=== PATIENT | male | born 1930 | race Caucasian/White ===

== ENCOUNTER 2019-04-25 09:35 | Day surgery (SDC) | payer BC ==
[2019-04-24 13:22] VITALS: BMI 37.6
[2019-04-25 13:20] VITALS: BP 127/83; PULSE 62
[2019-04-25 14:33] VITALS: TEMP 98
[2019-04-25 15:01] LABS: BASO % 1.2 % (0-2.0); EOS % 2.8 % (0-4.5); HEMATOCRIT 32.2 % (35.4-49); HEMOGLOBIN 10.2 GM/dL (11.7-16.9); LYMPH % 21.1 % (8-40); MCH 25.4 pg (25.7-33.7); MCHC 31.7 g/dl (32.0-35.9); MEAN CELL VOLUME 80.2 fl (80-96); MONO % 8.1 % (3.8-10.2); NEUT % 66.8 % (42.8-82.8); PLATELET COUNT 224 K/MM3 (134-434); RBC 4.02 M/mm3 (4.00-5.60); RDW 24.8 % (11.9-15.9); WHITE BLOOD COUNT 5.8 K/mm3 (4.0-10.0)
[2019-04-25 15:12] LABS: INR 1.2 (0.83-1.09); PROTHROMBIN TIME (PATIENT) 14.2 SEC (9.7-13.0)
[2019-04-25 15:27] LABS: ALBUMIN 3.2 g/dl (3.4-5.0); BILIRUBIN,TOTAL 0.4 mg/dL (0.2-1); BLOOD UREA NITROGEN 21.6 mg/dL (7-18); CALCIUM 8.8 mg/dL (8.5-10.1); CREATININE 1.2 mg/dL (0.55-1.3); POTASSIUM 3.2 mmol/L (3.5-5.1); TOT PROT 6.3 g/dl (6.4-8.2)
[2019-04-25 15:37] LABS: ANISOCYTOSIS 2+
--- NOTE | 2019-04-28 15:05 | PATH ---
Surgical Pathology Report Patient Name: LUIS ENRIQUE MILLER [facility]. Rec. #: [id number] /Age/Gender: 1930 (Age: 88) / M Account: [id number] Location: U-ENDOSCOPY Taken: 04/25/2019 Received: 04/25/2019 Reported: 04/28/2019 Physicians: Sergio Bailon M.D. Specimen(s) Received A: DUODENAL BULB AND 2ND PORTION B: GASTRIC ANTRUM C: GASTRIC ULCER D: CECUM POLYP E: RIGHT COLON POLYP Clinical History Occult blood, anemia, colon cancer screening Postoperative diagnosis: Malignant appearing gastric ulcer, colon polyps, angiodysplasia of colon Final Diagnosis A. DUODENUM, SECOND PORTION AND BULB, BIOPSY: DUODENAL MUCOSA WITHOUT SIGNIFICANT PATHOLOGIC FINDINGS. B. GASTRIC ANTRUM, BIOPSY: GASTRIC ANTRAL MUCOSA WITH MILD CHRONIC GASTRITIS AND INTESTINAL METAPLASIA. NO DYSPLASIA IDENTIFIED. IMMUNOHISTOCHEMICAL STAIN FOR H. PYLORI IS NEGATIVE. C. GASTRIC ULCER, MALIGNANT APPEARING, BIOPSY: ADENOCARCINOMA, MODERATE TO POORLY DIFFERENTIATED, WITH ASSOCIATED NECROSIS. SEE COMMENT. D. CECUM POLYP, BIOPSY: INFLAMMATORY POLYP. E. COLON, RIGHT, POLYP, BIOPSY: TUBULAR ADENOMA. Comment: Part C, Immunohistochemical stains performed and interpreted at [facility] show the tumor is positive for CK20 (patchy), while negative for CK7. The above immunophenotype is seen in a subset of gastric adenocarcinoma. Immunohistochemical stain for H. pylori is negative. Case seen in intradepartmental review with consensus on diagnosis. Her2 studies pending, findings will be reported separately. Findings discussed with Dr. Bailon. Positive and negative controls (internal if applicable) show appropriate results. Electronically Signed Jennifer Dominguez M.D. Addendum Reported: 05/08/2019 Addendum Diagnosis HER2 FISH BY ANALYSIS on block C was performed and interpreted at [facility] ([id number]) shows the following: Marker Result Interpretation HER2 IHC 2+ Equivocal HER2/CEP17 1.9 Negative FINAL HER2 Interpretation NEGATIVE HER2 IHC Results: Complete Membrane Staining: See Below* Uniform Staining: Absent Homogeneous, dark circumferential pattern: Absent Sample Adequate for Analysis: Yes HER2 FISH Results: Number of tumor cells counted: 20+20 Number of observers: 2 Average HER2 copy number: 4.85 Average CEP17 copy number: 2.50 Ratio of average HER2/CEP17: 1.9 Sample Adequate for Analysis: Yes See [facility] for additional details. Addendum Comment Jennifer Dominguez M.D. Gross Description A. Received in formalin, labeled "biopsy bulb and second portion of duodenum" are 3 peña, irregular portions of soft tissue averaging 0.3 cm. in greatest dimension. The specimens are submitted in toto in one cassette. B. Received in formalin, labeled "biopsy gastric antrum" are 2 peña, irregular portions of soft tissue measuring 0.2 and 0.3 cm. in greatest dimension. The specimens are submitted in toto in one cassette. C. Received in formalin labeled "biopsy malignant appearing gastric ulcer," is a 0.6 x 0.5 x 0.2 cm aggregate of peña soft tissue fragments. The formalin is filtered and the specimen is entirely submitted in one cassette. D. Received in formalin, labeled "cecum polyp" is a peña, irregular portion of soft tissue measuring 0.4 cm. in greatest dimension. The specimen is submitted in toto in one cassette. E. Received in formalin, labeled "right colon polyp" is a peña, irregular portion of soft tissue measuring 0.5 cm. in greatest dimension. The specimen is submitted in toto in one cassette. DL04/25/2019 saudi04/25/2019
== END 2019-04-25 14:34 | disposition home or self-care (01) ==
LOC: JASU-ENDO 09:35
PROVIDERS: ATTEND Internal Medicine Gastroenterology
PROC: 0DBK8ZX Excision of Ascending Colon, Via Natural or Artificial Opening Endoscopic, Diagnostic (ICD-10-PCS; 2019-04-25)
PROC: 0DB68ZX Excision of Stomach, Via Natural or Artificial Opening Endoscopic, Diagnostic (ICD-10-PCS; 2019-04-25)
PROC: 0DBH8ZX Excision of Cecum, Via Natural or Artificial Opening Endoscopic, Diagnostic (ICD-10-PCS; principal; 2019-04-25 10:45)
DX: Z12.11 Encounter for screening for malignant neoplasm of colon (principal); D50.9 Iron deficiency anemia, unspecified; D12.2 Benign neoplasm of ascending colon; D12.0 Benign neoplasm of cecum; K55.20 Angiodysplasia of colon without hemorrhage; K57.30 Diverticulosis of large intestine without perforation or abscess without bleeding; K64.8 Other hemorrhoids; K25.9 Gastric ulcer, unspecified as acute or chronic, without hemorrhage or perforation; E11.9 Type 2 diabetes mellitus without complications; I10 Essential (primary) hypertension
CPT/HCPCS: 36415; 80053; 82378; 85025; 85610; 88305-TC; 88341-TC; 88342-TC

== ENCOUNTER 2019-10-13 11:44 | Inpatient (IN) | payer BC, OTHER ==
[2019-10-13 11:52] VITALS: BMI 33.3
--- NOTE | 2019-10-13 12:01 | PDOC ---
Rapid Medical Evaluation Medical Evaluation: Allergies Allergy/AdvReac Type Severity Reaction Status Date / Time aspirin Allergy Verified 08/28/19 14:42 Vital Signs Temp Pulse Resp BP Pulse Ox 74 16 157/72 98 10/13/19 11:49 10/13/19 11:49 10/13/19 11:49 10/13/19 11:49 10/13/19 11:55 88 yo M accompanied by , h/o HL, BPH, CAD, CVA c/o dysuria x 2 weeks started on doxycycline 5 days ago, now with urinary retention since yesterday. decreased appetite, denies f/c, sob, cp. VSS sitting comfortably in wheelchair A/P: urinary retention labs, ua, ucx
--- NOTE | 2019-10-13 12:45 | PDOC ---
History of Present Illness - General Chief Complaint: Weakness Stated Complaint: WEAKNESS/ABD PAIN Time Seen by Provider: 10/13/19 12:07 - History of Present Illness Initial Comments: Pt is a 88yo M with PMH of HTN, HLD, DM, CKD, BPH, GERD, Afib on eliquis, gastric CA on chemo, who presents from assisted living for high blood pressure. Pt appears to be confused and is a poor historian. Pt states that he has not urinated in 1-3 days, nor had bowel movements in days. Repeatedly states that he is very thirsty. Called [facility]. States that patient was sent here for high blood pressure (136/130). In terms of chronic problems, they state that he has had decreased oral intake and increased weakness since starting chemo for gastric cancer. Upon asking about baseline mental status, they mention that he has appeared more confused over the last few days. State that most medications have been on hold for the last 19 days due to stomach pain. Continues to take metoprolol 100, protonix 40, eliquis 2.5, and K 20. K was increased from 10 3 days ago. Discontinued medications include: mirtazapine, furosemide, finasteri de, flomax, losartan, atorvastatin, amlodipine, iron. 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 10/13/19 19:30 Past History - Medical History Allergies/Adverse Reactions: Allergies Allergy/AdvReac Type Severity Reaction Status Date / Time aspirin Allergy Verified 08/28/19 14:42 Home Medications: Ambulatory Orders Atorvastatin Ca [Lipitor] 40 mg PO HS 04/24/19 Finasteride [Proscar -] 5 mg PO HS 04/24/19 Furosemide 40 mg PO DAILY 04/24/19 Glimepiride [Amaryl -] 2 mg PO DAILY 04/24/19 Metoprolol Succinate [Toprol Xl] 100 mg PO DAILY 04/24/19 Mirtazapine 15 mg PO HS 04/24/19 Potassium Chloride 10 meq PO DAILY 04/24/19 Pantoprazole Sodium [Protonix -] 40 mg PO HS #30 tablet.ec 04/25/19 Amlodipine Besylate [Norvasc -] 5 mg PO DAILY 09/12/19 Apixaban [Eliquis] 2.5 mg PO BID 09/12/19 Bimatoprost [Lumigan] 1 drop OU HS 09/12/19 Brimonidine Tartrate/Timolol [Combigan 0.2%-0.5% Eye Drops] 5 ml OP TID 09/12/19 Losartan Potassium 100 mg PO DAILY 09/12/19 Tamsulosin HCl [Flomax] 0.4 mg PO HS 09/12/19 Docusate Sodium [Colace] 200 mg PO HS PRN 09/13/19 Ferrous Sulfate 325 mg PO TID 09/13/19 Lidocaine 5% Patch [Lidoderm -] 1 patch TP DAILY PRN 09/13/19 Polyvinyl Alcohol [Artificial Tears] 1 drop OU QID 09/13/19 Sennosides [Senna] 17.2 mg PO HS PRN 09/13/19 Ondansetron HCl [Zofran] 4 mg PO Q8H #9 tablet 09/15/19 Cancer: Yes (Gastric CA) Cardiac Disorders: Yes (ASHD MD, ATRIAL FIBRILLATION, CHF?) COPD: No Dementia: Yes Diabetes: Yes (NIDD) HTN: Yes Hypercholesterolemia: Yes - Surgical History Appendectomy: Yes - Immunization History Immunization Up to Date: Yes - Psycho-Social/Smoking History Smoking History: Never smoked Have you smoked in the past 12 months: No - Substance Abuse Hx (Audit-C & DAST Scrn) How often the patient has a drink containing alcohol: Never Score: In Men: 4 or > Positive; In Women: 3 or > Positive: 0 Screen Result (Pos requires Nsg. Audit-10AR): Negative Review of Systems - Review of Systems Able to Perform ROS?: No (confused) *Physical Exam - Vital Signs Last Vital Signs Temp Pulse Resp BP Pulse Ox 97.3 F L 74 16 157/72 98 10/13/19 12:01 10/13/19 11:49 10/13/19 11:49 10/13/19 11:49 10/13/19 11:49 - Physical Exam General: awake, is aware that he is in hospital, in no acute distress Head: normocephalic, atraumatic Eyes: PERRL, EOMI, anicteric sclera ENT: dry mucous membranes Lung: equal breath sounds b/l, CTA b/l, no crackles, wheezes Heart: RRR, normal S1, S2, no murmurs, rubs, gallops Abdomen: soft, non tender, normoactive bowel sounds, no guarding, rebound, masses Extremities: no edema, no erythema or tenderness Skin: warm, dry, no rashes or lesions noted ED Treatment Course - LABORATORY CBC & Chemistry Diagram: 10/13/19 13:15 10/13/19 12:19 Medical Decision Making - Medical Decision Making Pt is an 88yo M with PMH HTN, HLD, DM, CKD, BPH, GERD, Afib on eliquis, gastric CA on chemo who presents with high blood pressure. Vital Signs Period Temp Pulse Resp BP Sys/Davis Pulse Ox Last 24 Hr 97.3 F 74 16 157/72 98 DDx: hypoglycemia, UTI, pneumonia Plan: labs, EKG, CXR, head CT, CT A/P EKG: HR 79; Afib, Left axis deviation, QRS 92ms, QTc 463ms Laboratory Tests 10/13/19 10/13/19 10/13/19 12:19 13:15 13:15 WBC 7.8 RBC 4.24 Hgb 14.0 Hct 41.4 MCV 97.7 H MCH 33.0 MCHC 33.7 RDW 20.3 H Plt Count 213 D MPV 8.5 Absolute Neuts (auto) 6.0 Neutrophils % 77.3 Lymphocytes % 13.2 D Monocytes % 7.6 Eosinophils % 0.7 Basophils % 1.2 Nucleated RBC % 0 PT with INR 16.40 H INR 1.39 H PTT (Actin FS) 30.7 Sodium 144 Potassium 3.9 Chloride 111 H Carbon Dioxide 22 Anion Gap 10 BUN 15.6 Creatinine 1.0 Est GFR (CKD-EPI)AfAm 78.64 Est GFR (CKD-EPI)NonAf 67.85 Random Glucose 139 H Calcium 8.7 Magnesium 1.9 Total Bilirubin 1.3 H AST 37 ALT 24 Alkaline Phosphatase 86 Total Protein 6.2 L Albumin 2.5 L 10/13/19 17:[address]: no acute intracranial pathology 10/13/19 17:52 CT A/P: No definite CT findings of acute pathology are seen. There has been no definite interval change in comparison to a prior CT exam of 09/11/2019. 0.9 cm urinary bladder calculus. Moderate prostate enlargement. As on prior studies there is increased soft tissue density along the urinary bladder base probably due to median lobe prostate hypertrophy and less likely representing an intrinsic urinary bladder lesion. Urinary consultation is suggested if not previously performed. Probable diffuse hepatic steatosis. Stable subcentimeter right hepatic lobe hypodense focus possibly representing a cyst. 10/13/19 18:06 Trop 0.06 Pt signed out to Dr. Good who accepted care for patient Disposition Admit Discharge - Discharge Information Problems reviewed: Yes Clinical Impression/Diagnosis: Altered mental status Condition: Stable - Admission Yes - Follow up/Referral - Patient Discharge Instructions - Post Discharge Activity
[2019-10-13 13:30] LABS: BASO % 1.2 % (0-2.0); EOS % 0.7 % (0-4.5); HEMATOCRIT 41.4 % (35.4-49); LYMPH % 13.2 % (8-40); MCHC 33.7 g/dl (32.0-35.9); MEAN CELL VOLUME 97.7 fl (80-96); MEAN PLT VOLUME 8.5 fl (7.5-11.1); MONO % 7.6 % (3.8-10.2); NEUT % 77.3 % (42.8-82.8); PLATELET COUNT 213 K/MM3 (134-434); RBC 4.24 M/mm3 (4.00-5.60); RDW 20.3 % (11.9-15.9); WHITE BLOOD COUNT 7.8 K/mm3 (4.0-10.0)
[2019-10-13 13:37] LABS: INR 1.39 (0.83-1.09); PROTHROMBIN TIME (PATIENT) 16.4 SEC (9.7-13.0)
[2019-10-13 13:39] LABS: ACTIVATED PTT 30.7 SECONDS (25.2-36.5)
[2019-10-13 13:56] LABS: ALBUMIN 2.5 g/dl (3.4-5.0); BILIRUBIN,TOTAL 1.3 mg/dL (0.2-1); BLOOD UREA NITROGEN 15.6 mg/dL (7-18); CALCIUM 8.7 mg/dL (8.5-10.1); MAGNESIUM 1.9 mg/dL (1.8-2.4); POTASSIUM 3.9 mmol/L (3.5-5.1); TOT PROT 6.2 g/dl (6.4-8.2)
[2019-10-13] MEDS ORDERED: SODIUM CHLORIDE 0.9% 500 ML INFUS.BAG IV ONE (14:05)
[2019-10-13 19:39] LABS: PH,URINE 7.5 (5.0-8.0); URINE APPEARANCE CLEAR; URINE BILIRUBIN NEGATIVE (NEGATIVE); URINE COLOR YELLOW; URINE GLUCOSE (UA) NEGATIVE (NEGATIVE); URINE KETONE NEGATIVE (NEGATIVE); URINE LEUK ESTERASE NEGATIVE (NEGATIVE); URINE NITRITE NEGATIVE (NEGATIVE); URINE PROTEIN NEGATIVE (NEGATIVE)
--- NOTE | 2019-10-13 19:50 | PN ---
Teaching Attending Note Name of Resident: Rodriguez Bruno ATTENDING PHYSICIAN STATEMENT I saw and evaluated the patient. I reviewed the resident's note and discussed the case with the resident. I agree with the resident's findings and plan as documented. SUBJECTIVE: Patient is an 88 year old male with a PMH of Gastric cancer (on chemo), ASHD, [place], Afib (on Eliquis), DM, BPH, HTN, HLD, CAD and CVA who presents to the ER from [facility] (assisted living) for high blood pressure. Has baseline ?confusion. Per patient, his last urination was 1-3 days ago. Per assisted living, the patient has chronic weakness, decreased oral intake, has recently become more confused, and he has not been given his medications for 19 days due to stomach pain. Continues to take Metoprolol 100, Protonix 40, Eliquis 2.5, and KCL 20. KCL was increased from 10 three days ago. Discontinued medications include: Mirtazapine, Furosemide, Finasteride, Flomax, Losartan, Atorvastatin, Amlodipine and Iron. No reported chest pain, shortness of breath, abdominal pain, headache, palpitations, dizziness, fever, chills, nausea, vomiting, diarrhea, dysuria, manuel quency, melena, hematochezia or hematuria. No reported history of alcohol, tobacco or illicit drug use. No reported sick contacts or recent travels. Family history is unremarkable. OBJECTIVE: Alert Vital Signs Period Temp Pulse Resp BP Sys/Davis Pulse Ox Last 24 Hr 97.3 F 74 16 157/72 98 HEENT: No Jaundice, eye redness or discharge, PERRLA, EOMI. Normocephalic, atraumatic. External ears are normal and hearing is grossly intact. No nasal discharge. Neck: Supple, nontender. No palpable adenopathy or thyromegaly. No JVD Chest: Good effort. Clear to auscultation and percussion. Heart: Regular. No S3, rub or murmur Abdomen: Not distended, soft, LUQ tenderness and no HSM. No rebound or guarding. Normal bowel sounds. Ext: Peripheral pulses intact. No leg edema. Skin: Warm and dry. No petechiae, rash or ecchymosis. Neuro: Alert. Oriented x3. CN 2-12 grossly intact. Sensation grossly intact in all four extremities and DTR are symmetric. Psych: Appropriate mood and affect. Good insight. Home Medications Medication Instructions Recorded Atorvastatin Ca [Lipitor] 40 mg PO HS 04/24/19 Finasteride [Proscar -] 5 mg PO HS 04/24/19 Furosemide 40 mg PO DAILY 04/24/19 Glimepiride [Amaryl -] 2 mg PO DAILY 04/24/19 Metoprolol Succinate [Toprol Xl] 100 mg PO DAILY 04/24/19 Mirtazapine 15 mg PO HS 04/24/19 Potassium Chloride 10 meq PO DAILY 04/24/19 Pantoprazole Sodium [Protonix -] 40 mg PO HS #30 tablet.ec 04/25/19 Amlodipine Besylate [Norvasc -] 5 mg PO DAILY 09/12/19 Apixaban [Eliquis] 2.5 mg PO BID 09/12/19 Bimatoprost [Lumigan] 1 drop OU HS 09/12/19 Brimonidine Tartrate/Timolol 5 ml OP TID 09/12/19 [Combigan 0.2%-0.5% Eye Drops] Losartan Potassium 100 mg PO DAILY 09/12/19 Tamsulosin HCl [Flomax] 0.4 mg PO HS 09/12/19 Docusate Sodium [Colace] 200 mg PO HS PRN 09/13/19 Ferrous Sulfate 325 mg PO TID 09/13/19 Lidocaine 5% Patch [Lidoderm -] 1 patch TP DAILY PRN 09/13/19 Polyvinyl Alcohol [Artificial 1 drop OU QID 09/13/19 Tears] Sennosides [Senna] 17.2 mg PO HS PRN 09/13/19 Ondansetron HCl [Zofran] 4 mg PO Q8H #9 tablet 09/15/19 Abnormal Lab Results 10/13/19 10/13/19 10/13/19 12:19 13:15 13:15 MCV 97.7 H RDW 20.3 H PT with INR 16.40 H INR 1.39 H Chloride 111 H Random Glucose 139 H Total Bilirubin 1.3 H Troponin I 0.07 H Total Protein 6.2 L Albumin 2.5 L Current Medications Generic Name Dose Route Start Last Admin Trade Name Freq PRN Reason Stop Dose Admin Docusate Sodium 100 mg 10/14/19 10:00 Colace - PO DAILY STEVE Lactated Ringer's 1,000 ml in 1,000 mls @ 83 mls/hr 10/13/19 23:45 Lactated Ringers Solution IV ASDIR STEVE Morphine Sulfate 2 mg 10/13/19 23:55 Morphine Sulfate IVPUSH Q4H PRN PAIN LEVEL 6-10 Oxycodone HCl 10 mg 10/13/19 23:38 Roxicodone - PO Q6H PRN PAIN LEVEL 6-10 Trimethobenzamide HCl 300 mg 10/13/19 23:40 Tigan - PO QID PRN NAUSEA ASSESSMENT AND PLAN: 1. Altered mental status/Failure to thrive - No obvious infection. Cancer burden and/or debility associated with chemotherapy may explain symptoms. Patient tested negative for COVID-19 on 09/11/2019. CXR shows right side central line but no acute abnormality. No acute abnormality on head CT. CT abdomen/pelvis with IV contrast didnot show any acute abnormality. Consult Oncologist to ascertain objective of cancer chemotherapy. Consult Palliative care. Mild elevation in troponin may signal demand ischemia. EKG shows Afib at 79/minute, LAD and QTc 463, T wave inversion in V4-V6 with no significant ST wave changes - similar to prior EKG. Will trend troponin to rule out ACS. He has no Echocardiogram on record. Will monitor on telemetry, hydrate gently, provide bowel regimen and intense nutritional support including supplements like Ensure. Viral testing for COVID-19 ordered and patient placed on airborne, droplet and contact isolation. Will continue comprehensive care for all of patients comorbid conditions including Eliquis for Afib. 2. Hypoalbuminemia - Possibly due to combined effects of malnutrition and inflammation associated with comorbid conditions. Will ensure adequate dietary protein intake and also consult information clerk brokerage. 3. DM For now, we will hold the home diabetes drugs and implement sliding scale insulin regimen. Provide comprehensive diabetes care with patient teaching and counseling about the importance of adherence to prescribed diabetes regimen, euglycemia, eye care and foot care. 4. Obesity Counseled on the risks associated with obesity. Will provide patient all the necessary assistance, counseling and positive reinforcement to facilitate weight loss. Consult information clerk brokerage. 5. Uncontrolled hypertension Will restart suitable outpatient antihypertensive drugs when clinically appropriate. Subsequently, will revise regimen to ensure [id number] excellent BP control. Patient counseled on the injurious effects of uncontrolled hypertension. Nonpharmacologic measures to control hypertension like weight loss, salt restriction and exercise stressed. Importance of adherence to treatment regimen and attainment of normotension emphasized. 6. DVT prophylaxis - On Eliquis for Afib. 7. Advance directives - Full code
--- NOTE | 2019-10-13 21:22 | HP ---
CHIEF COMPLAINT: Sent from [place] for hypotension and AMS PCP: HISTORY OF PRESENT ILLNESS: 88 y.o. Citizen Of [place] speaking M PMHx HTN, HLD, DM, CKD, GERD, A-Fib on eloquis, Gastric cancer (oxaliplatin, leucovorin, 5-FU). Was sent from [place] home due to hypertension (136/130) and increased confusion over the past few days. The staff stated he has been having difficulty urinating, decreased appetite and has had his medications (mirtazapine, furosemide, finasteride, flomax, losartan, atorvastatin, amlodipine, iron) on hold for 19 days due to stomach pain. In the ED patient stated he has been having dizziness, nausea and is very thirsty. Denied headache, chills, sob, chest pain, vomiting, diarrhea, dysuria, hematuria. Patient knew his name, date, and location although he though he was in the OR and would frequently repeat himself/not answer questions. He was previously on ensure per dietary. He sees his oncologist Dr. Gutiérrez at [facility]. He has no recent travel, lives at [facility] and has had no recent sick contacts. [employer] # [id number] ER course was notable for: (1) Urine Culture (2) 500mL NS bolus (3) EKG Recent Travel: None PAST MEDICAL HISTORY: HTN, HLD, DM, CKD, GERD, A-Fib, Gastric cancer PAST SURGICAL HISTORY: None Social History: Smoking: None Alcohol: None Drugs: None Allergies aspirin Allergy (Verified 08/28/19 14:42) HOME MEDICATIONS: Home Medications Medication Instructions Recorded Atorvastatin Ca [Lipitor] 40 mg PO HS 04/24/19 Finasteride [Proscar -] 5 mg PO HS 04/24/19 Furosemide 40 mg PO DAILY 04/24/19 Glimepiride [Amaryl -] 2 mg PO DAILY 04/24/19 Metoprolol Succinate [Toprol Xl] 100 mg PO DAILY 04/24/19 Mirtazapine 15 mg PO HS 04/24/19 Potassium Chloride 10 meq PO DAILY 04/24/19 Pantoprazole Sodium [Protonix -] 40 mg PO HS #30 tablet.ec 04/25/19 Amlodipine Besylate [Norvasc -] 5 mg PO DAILY 09/12/19 Apixaban [Eliquis] 2.5 mg PO BID 09/12/19 Bimatoprost [Lumigan] 1 drop OU HS 09/12/19 Brimonidine Tartrate/Timolol 5 ml OP TID 09/12/19 [Combigan 0.2%-0.5% Eye Drops] Losartan Potassium 100 mg PO DAILY 09/12/19 Tamsulosin HCl [Flomax] 0.4 mg PO HS 09/12/19 Docusate Sodium [Colace] 200 mg PO HS PRN 09/13/19 Ferrous Sulfate 325 mg PO TID 09/13/19 Lidocaine 5% Patch [Lidoderm -] 1 patch TP DAILY PRN 09/13/19 Polyvinyl Alcohol [Artificial 1 drop OU QID 09/13/19 Tears] Sennosides [Senna] 17.2 mg PO HS PRN 09/13/19 Ondansetron HCl [Zofran] 4 mg PO Q8H #9 tablet 09/15/19 REVIEW OF SYSTEMS CONSTITUTIONAL: loss of appetite Absent: fever, chills, diaphoresis, generalized weakness, malaise, weight change HEENT: Absent: rhinorrhea, nasal congestion, throat pain, throat swelling, difficulty swallowing, mouth swelling, ear pain, eye pain, visual changes CARDIOVASCULAR: Absent: chest pain, syncope, palpitations, irregular heart rate, lightheadedness, peripheral edema RESPIRATORY: Absent: cough, shortness of breath, dyspnea with exertion, orthopnea, wheezing, stridor, hemoptysis GASTROINTESTINAL: abdominal pain, nausea Absent: abdominal distension, vomiting, diarrhea, constipation, melena, hematochezia GENITOURINARY: Absent: dysuria, frequency, urgency, hesitancy, hematuria, flank pain, genital pain MUSCULOSKELETAL: Absent: myalgia, arthralgia, joint swelling, back pain, neck pain SKIN: Absent: rash, itching, pallor HEMATOLOGIC/IMMUNOLOGIC: Absent: easy bleeding, easy bruising, lymphadenopathy, frequent infections ENDOCRINE: Absent: unexplained weight gain, unexplained weight loss, heat intolerance, cold intolerance NEUROLOGIC: Absent: headache, focal weakness or paresthesias, dizziness, unsteady gait, seizure, mental status changes, bladder or bowel incontinence PSYCHIATRIC: Absent: anxiety, depression, suicidal or homicidal ideation, hallucinations. PHYSICAL EXAMINATION Vital Signs - 24 hr 10/13/19 10/13/19 10/13/19 11:49 12:01 20:29 Temperature 97.3 F L 97.8 F Pulse Rate 74 Pulse Rate [ 67 Left Brachial] Respiratory 16 Rate Blood Pressure 157/72 Blood Pressure 90/70 [Left Arm] O2 Sat by Pulse 98 98 Oximetry (%) GENERAL: Awake, alert, and fully oriented, in no acute distress. HEAD: Normal with no signs of trauma. EYES: Pupils equal, round and reactive to light, extraocular movements intact, sclera anicteric, conjunctiva clear. EARS, NOSE, THROAT: Oropharynx clear without exudates. Dry mucous membranes. NECK: No JVD, or masses. LUNGS: Breath sounds equal, clear to auscultation bilaterally. No wheezes, and no crackles. No accessory muscle use. HEART: Iregular rate and rhythm, normal S1 and S2 without murmur, rub or gallop. ABDOMEN: Soft, tender LUQ, not distended, normoactive bowel sounds, no guarding, no rebound, no masses. MUSCULOSKELETAL: Normal range of motion at all joints. . No CVA tenderness. UPPER EXTREMITIES: 2+ pulses, warm, well-perfused. . No peripheral edema. LOWER EXTREMITIES: 2+ pulses, warm, well-perfused. No calf tenderness. No peripheral edema. NEUROLOGICAL: Cranial nerves II-XII intact. Normal speech. PSYCHIATRIC: Cooperative. Good eye contact. Appropriate mood and affect. SKIN: Warm, dry, normal turgor, no rashes or lesions noted. Laboratory Results - last 24 hr 10/13/19 10/13/19 10/13/19 12:19 13:15 13:15 WBC 7.8 RBC 4.24 Hgb 14.0 Hct 41.4 MCV 97.7 H MCH 33.0 MCHC 33.7 RDW 20.3 H Plt Count 213 D MPV 8.5 Absolute Neuts (auto) 6.0 Neutrophils % 77.3 Lymphocytes % 13.2 D Monocytes % 7.6 Eosinophils % 0.7 Basophils % 1.2 Nucleated RBC % 0 PT with INR 16.40 H INR 1.39 H PTT (Actin FS) 30.7 Sodium 144 Potassium 3.9 Chloride 111 H Carbon Dioxide 22 Anion Gap 10 BUN 15.6 Creatinine 1.0 Est GFR (CKD-EPI)AfAm 78.64 Est GFR (CKD-EPI)NonAf 67.85 Random Glucose 139 H Calcium 8.7 Magnesium 1.9 Total Bilirubin 1.3 H AST 37 ALT 24 Alkaline Phosphatase 86 Troponin I 0.07 H Total Protein 6.2 L Albumin 2.5 L Urine Color Urine Appearance Urine pH Ur Specific [place] Urine Protein Urine Glucose (UA) Urine Ketones Urine Blood Urine Nitrite Urine Bilirubin Urine Urobilinogen Ur Leukocyte Esterase 10/13/19 10/13/19 13:37 18:47 WBC RBC Hgb Hct MCV MCH MCHC RDW Plt Count MPV Absolute Neuts (auto) Neutrophils % Lymphocytes % Monocytes % Eosinophils % Basophils % Nucleated RBC % PT with INR INR PTT (Actin FS) Sodium Potassium Chloride Carbon Dioxide Anion Gap BUN Creatinine Est GFR (CKD-EPI)AfAm Est GFR (CKD-EPI)NonAf Random Glucose Calcium Magnesium Total Bilirubin AST ALT Alkaline Phosphatase Troponin I Cancelled Total Protein Albumin Urine Color Yellow Urine Appearance Clear Urine pH 7.5 Ur Specific [place] 1.027 Urine Protein Negative Urine Glucose (UA) Negative Urine Ketones Negative Urine Blood Negative Urine Nitrite Negative Urine Bilirubin Negative Urine Urobilinogen 1.0 Ur Leukocyte Esterase Negative ASSESSMENT/PLAN: 88 y.o. Citizen Of [place] speaking M PMHx HTN, HLD, DM, CKD, GERD, A-Fib on eloquis, Gastric cancer. Sent from [facility] due to hypertension (136/130), increased confusion, decreased appetite. # Failure to thrive & abdominal pain - Likely due to decreased PO intake - Secondary to gastric cancer - Dietary consult - Restart Ensure supplementation - F/u with Oncologist Dr. Gutiérrez at [facility] for nausea - Morphine 2mg Q4 - Oxycodone 10mg - Oxaliplatin & 5-FU adverse effects include: GI toxicity, GI bleed, stomatitis, mucositis, prolonged PT/INR - 5-FU & leucovorin adverse effect: enteric colitis # Hyperbilirubin - Direct bilirubin - Can f/u with RUQ US if elevated # Tropenemia - Troponin 0.07 - Trending trops - Echo ordered # Increased Qtc - Likely secondary to oxyplatin - Repeat EKG # Increased PT/INR - Likely secondary to Oxyplatin, 5-FU, Eloquis # Covid r/o - Covid PCR Ordered - PCR ordered due to geographic location of pandemic - Placed in isolation precautions # FEN - NS @ 75mL/hr - Ensure supplement - Diabetic/Sodium controlled diet # DVT Prophylaxis - Eloquis 2.5mg PO BID - SCD's B/L # Dispo - Visit type - Medication Review Med list reviewed for High Risk Meds patients 65 and older: Yes - Emergency Visit Emergency Visit: Yes ED Registration Date: 10/13/19 Care time: The patient presented to the Emergency Department on the above date and was hospitalized for further evaluation of their emergent condition. - New Patient This patient is new to me today: No - Critical Care Critical Care patient: No ATTENDING PHYSICIAN STATEMENT I saw and evaluated the patient. I reviewed the resident's note and discussed the case with the resident. I agree with the resident's findings and plan as documented. SUBJECTIVE: OBJECTIVE: ASSESSMENT AND PLAN:
[2019-10-13] MEDS ORDERED: oxyCODONE HCL 5 MG TABLET PO PRN (23:38)
[2019-10-13] MEDS ORDERED: TRIMETHOBENZAMIDE HCL 300 MG CAPSULE PO PRN (23:40)
[2019-10-13] MEDS ORDERED: morphine CARPU-JECT 4 MG/1 ML DISP.SYRIN IVPUSH SCH (23:45)
[2019-10-13] MEDS ORDERED: MORPHINE SULFATE 2 MG/ML VIAL IVPUSH PRN (23:55)
[2019-10-14] MEDS: LACTATED RINGERS SOLUTION 1,000 ML/1,000 ML INFUS.BAG IV SCH (02:35)
[2019-10-14] MEDS ORDERED: DOCUSATE SODIUM 100 MG CAPSULE (FP) PO PRN (05:12)
[2019-10-14] MEDS ORDERED: PATIENT'S OWN MEDICATION (NON-FORMULARY) (Brimonidine Tartrate/Timolol [Combigan 0.2%-0.5% OP SCH (06:00)
[2019-10-14] MEDS: FERROUS SO4 325 MG TABLET (FP) PO SCH ×4 (07:30→22:37)
[2019-10-14] MEDS ORDERED: DOCUSATE SODIUM 100 MG CAPSULE (FP) PO ONE (09:34)
[2019-10-14] MEDS ORDERED: APIXABAN 2.5 MG TABLET ONE (09:34)
[2019-10-14] MEDS ORDERED: MORPHINE SULFATE 2 MG/ML VIAL ONE (09:34)
[2019-10-14] MEDS ORDERED: POTASSIUM CHLORIDE TABS 10 MEQ TABLET.ER (FP) ONE (09:34)
[2019-10-14] MEDS ORDERED: FERROUS SO4 325 MG TABLET (FP) ONE (09:35)
[2019-10-14] MEDS: APIXABAN 2.5 MG TABLET PO SCH ×2 (09:52→22:37)
[2019-10-14] MEDS: DOCUSATE SODIUM 100 MG CAPSULE (FP) PO SCH (09:52)
[2019-10-14] MEDS: POTASSIUM CHLORIDE TABS 10 MEQ TABLET.ER (FP) PO SCH (09:52)
[2019-10-14] MEDS: ARTIFICIAL TEARS (POLYVINYL ALCOHOL) OPTH DROPS OU SCH ×4 (10:00→22:35)
--- NOTE | 2019-10-14 10:54 | ECHO ---
Name: VASILIADIS, CONSTANTINOS Exam:Adult Echocardiogram Study Date: 10/14/2019 08:16 AM Age: 88 yrs Reason For Study: LV Function Height: 65 in Weight: 200 lb BSA: 2.0 m2 MMode/2D Measurements & Calculations IVSd: 1.9 cm Ao root diam: 3.7 cm LVIDd: 3.9 cm LA dimension: 4.2 cm LVIDs: 2.9 cm ACS: 0.97 cm LVPWd: 1.4 cm EDV(Teich): 66.3 ml LVOT diam: 2.5 cm ESV(Teich): 33.5 ml LVLd ap4: 7.5 cm SV(MOD-sp4): 18.5 ml EDV(MOD-sp4): 37.3 ml LVLs ap4: 6.3 cm ESV(MOD-sp4): 18.8 ml Doppler Measurements & Calculations MV E max carito: 89.9 cm/sec MV dec slope: 597.2 cm/sec2 Ao V2 max: 151.2 cm/sec LV V1 max P.2 mmHg Ao max P.3 mmHg LV V1 mean P.2 mmHg Ao V2 mean: 98.3 cm/sec LV V1 max: 74.4 cm/sec Ao mean P.6 mmHg LV V1 mean: 49.6 cm/sec Ao V2 VTI: 30.9 cm LV V1 VTI: 15.2 cm RONDA(I,D): 2.4 cm2 RONDA(V,D): 2.4 cm2 MR max carito: 333.3 cm/sec SV(LVOT): 72.8 ml MR max P.6 mmHg PA V2 max: 71.7 cm/sec PA max P.1 mmHg Tech Comments Technically Difficult Syudy. Procedure A two-dimensional transthoracic echocardiogram with color flow and Doppler was performed. The patient was in atrial fibrillation with controlled ventricular rate during the exam. Left Ventricle There is moderate concentric left ventricular hypertrophy. The left ventricular ejection fraction is normal. Ejection Fraction = 55. The transmitral spectral Doppler flow pattern is suggestive of impaired LV re laxation. Right Ventricle The right ventricle is grossly normal size. The right ventricular systolic function is grossly normal . Atria The left atrium is mildly dilated. Right atrial size is normal. Mitral Valve There is moderate mitral annular calcification. There is moderate mitral valve thickening. There is m ild mitral regurgitation. Tricuspid Valve The tricuspid valve is normal. No tricuspid regurgitation. Aortic Valve Fibrocalcific aortic valve with decreased opening. Moderate valvular aortic stenosis. Trace aortic regurgitation. Pulmonic Valve The pulmonic valve leaflets are thin and pliable; valve motion is normal. There is no pulmonic valvul ar regurgitation. Great Vessels The aortic root is normal size. Pericardium/Pleura There is no pericardial effusion. Interpretation Summary There is moderate concentric left ventricular hypertrophy. The left ventricular ejection fraction is normal. The transmitral spectral Doppler flow pattern is suggestive of impaired LV relaxation. The right ventricular systolic function is grossly normal. The left atrium is mildly dilated. There is moderate mitral annular calcification. There is moderate mitral valve thickening. There is mild mitral regurgitation. Fibrocalcific aortic valve with decreased opening. Moderate valvular aortic stenosis. Trace aortic regurgitation. There is no pericardial effusion. MD Lambert Payne 10/14/2019 10:54 AM
[2019-10-14 10:55] LABS: ALBUMIN 2.9 g/dl (3.4-5.0); BILIRUBIN,TOTAL 1.4 mg/dL (0.2-1); BLOOD UREA NITROGEN 18.6 mg/dL (7-18); CALCIUM 9.3 mg/dL (8.5-10.1); CREATININE 1.3 mg/dL (0.55-1.3); POTASSIUM 3.7 mmol/L (3.5-5.1); TOT PROT 6.7 g/dl (6.4-8.2)
--- NOTE | 2019-10-14 12:06 | EKG ---
Test Reason : Blood Pressure : / mmHG Vent. Rate : 079 BPM Atrial Rate : 078 BPM P-R Int : 000 ms QRS Dur : 092 ms QT Int : 404 ms P-R-T Axes : 000 -34 -42 degrees QTc Int : 463 ms ATRIAL FIBRILLATION LEFT AXIS DEVIATION MINIMAL VOLTAGE CRITERIA FOR LVH, MAY BE NORMAL VARIANT POSSIBLE ANTERIOR INFARCT , AGE UNDETERMINED ABNORMAL ECG WHEN COMPARED WITH ECG OF 11-SEP-2019 17:41, T WAVE INVERSION NOW EVIDENT IN LATERAL LEADS Confirmed by Fernando Freeman MD ([id number]) on 10/14/2019 12:05:57 PM Referred By: Confirmed By:Fernando Freeman MD
--- NOTE | 2019-10-14 15:43 | CONSULT ---
Consult Consult Specialty:: Palliative care Referred by:: Jhonathan Blanca Reason for Consultation:: Goals of care - History of Present Illness Chief Complaint: gastric cancer FTT increased confusion History of Present Illness: 88 y.o. [place] speaking M PMHx HTN, HLD, DM, CKD, GERD, BPH, CAD, CVA, glaucoma,A-Fib on eliquis, Gastric cancer (oxaliplatin, leucovorin, 5-FU)- recently treated for uti with doxycycline. He is a resident of [facility] and was admitted to [facility] 10/12 with uncontrolled hypertension (136/130) and increased confusion over the past few days. The staff stated he has been having difficulty urinating, decreased appetite and has had his medications (mirtazapine, furosemide, finasteride, flomax, losartan, atorvastatin, amlodipine, iron) on hold for 19 days due to stomach pain. In the ED patient stated he has been having dizziness, nausea and is very thirsty. Denied headache, chills, sob, chest pain, vomiting, diarrhea, dysuria, hematuria. Patient knew his name, date, and location although he though he was in the OR and would frequently repeat himself/not answer questions. He was previously on ensure per dietary. He sees his oncologist Dr. Gutiérrez at [facility]. He has no recent travel, lives at [facility] and has had no recent sick contacts. Patient has become weaker and sicker since he started chemotherapy, has not been ambulatory and has been requiring more assistance. He cannot return back to assisted living and will need STR. CHemo will have to be held while he is receiving STR. CTH neg CT A/P- fatty liver, enlarged prostate, cardiomegaly, coronary calcifications Echo- LVH, LVEF nl, impaired LV relaxation mod TSH and NH4- nl narcotics discontinued secondary to confusion ACS ruled out U/A neg for uti covid test pending Palliative care consult called for goals of care. - History Source History Provided By: Medical Record Limitations to Obtaining History: Clinical Condition - Past Medical History Cardio/Vascular: Yes: AFIB, Aortic Stenosis, HTN, Hyperlipdemia Gastrointestinal: Yes: Cancer, GERD Renal/: Yes: Renal Inusuff, BPH Heme/Onc: Yes: Current Chemotherapy Endocrine: Yes: Diabetes Mellitus - Alcohol/Substance Use Hx Alcohol Use: No - Smoking History Smoking history: Never smoked Have you smoked in the past 12 months: No - Social History Usual Living Arrangement: Assisted Living ADL: Independent (has declined recently) Home Medications - Allergies Allergies/Adverse Reactions: Allergies Allergy/AdvReac Type Severity Reaction Status Date / Time aspirin Allergy Verified 08/28/19 14:42 - Home Medications Home Medications: Ambulatory Orders Atorvastatin Ca [Lipitor] 40 mg PO HS 04/24/19 Finasteride [Proscar -] 5 mg PO HS 04/24/19 Furosemide 40 mg PO DAILY 04/24/19 Glimepiride [Amaryl -] 2 mg PO DAILY 04/24/19 Metoprolol Succinate [Toprol Xl] 100 mg PO DAILY 04/24/19 Mirtazapine 15 mg PO HS 04/24/19 Potassium Chloride 10 meq PO DAILY 04/24/19 Pantoprazole Sodium [Protonix -] 40 mg PO HS #30 tablet.ec 04/25/19 Amlodipine Besylate [Norvasc -] 5 mg PO DAILY 09/12/19 Apixaban [Eliquis] 2.5 mg PO BID 09/12/19 Bimatoprost [Lumigan] 1 drop OU HS 09/12/19 Brimonidine Tartrate/Timolol [Combigan 0.2%-0.5% Eye Drops] 5 ml OP TID 09/12/19 Losartan Potassium 100 mg PO DAILY 09/12/19 Tamsulosin HCl [Flomax] 0.4 mg PO HS 09/12/19 Docusate Sodium [Colace] 200 mg PO HS PRN 09/13/19 Ferrous Sulfate 325 mg PO TID 09/13/19 Lidocaine 5% Patch [Lidoderm -] 1 patch TP DAILY PRN 09/13/19 Polyvinyl Alcohol [Artificial Tears] 1 drop OU QID 09/13/19 Sennosides [Senna] 17.2 mg PO HS PRN 09/13/19 Ondansetron HCl [Zofran] 4 mg PO Q8H #9 tablet 09/15/19 Review of Systems - Review of Systems Constitutional: reports: Loss of Appetite Gastrointestinal: reports: Abdominal Pain Neurological: reports: Confusion Physical Exam Vital Signs: Vital Signs Temperature 97.4 F L 10/14/19 15:36 Pulse Rate 68 10/14/19 15:36 Respiratory Rate 20 10/14/19 15:36 Blood Pressure 160/116 H 10/14/19 15:36 O2 Sat by Pulse Oximetry (%) 92 L 10/14/19 15:36 Constitutional: Yes: Well Nourished, Calm, Obese Eyes: Yes: WNL, Conjunctiva Clear, EOM Intact HENT: Yes: WNL, Atraumatic, Normocephalic Neck: Yes: Supple Cardiovascular: Yes: Pulse Irregular Respiratory: Yes: CTA Bilaterally Gastrointestinal: Yes: Normal Bowel Sounds, Soft, Abdomen, Obese Neurological: Yes: Alert, Confusion, Lethargy Labs: CBC, BMP 10/13/19 13:15 10/14/19 10:00 Imaging - Results Chest X-ray: Report Reviewed Cat Scan: Report Reviewed EKG: Report Reviewed Other: Report Reviewed Problem List - Problems (1) Altered mental status Code(s): R41.82 - ALTERED MENTAL STATUS, UNSPECIFIED (2) Abdominal pain Code(s): R10.9 - UNSPECIFIED ABDOMINAL PAIN Qualifiers: Abdominal location: generalized Qualified Code(s): R10.84 - Generalized abdominal pain (3) Gastric cancer Code(s): C16.9 - MALIGNANT NEOPLASM OF STOMACH, UNSPECIFIED Qualifiers: Malignant neoplasm of stomach location: unspecified location Qualified Code(s): C16.9 - Malignant neoplasm of stomach, unspecified (4) Lactic acidosis Code(s): E87.2 - ACIDOSIS Assessment/Plan 88 y.o. [place] speaking M PMHx HTN, HLD, DM, CKD, GERD, BPH, CAD, CVA, glaucoma,A-Fib on eliquis, Gastric cancer (oxaliplatin, leucovorin, 5-FU)- recently treated for uti with doxycycline. He is a resident of [facility] and was admitted to [facility] 10/12 with uncontrolled hypertension (136/130) and increased confusion over the past few days. The staff stated he has been having difficulty urinating, decreased appetite and has had his medications (mirtazapine, furosemide, finasteride, flomax, losartan, atorvastatin, amlodipine, iron) on hold for 19 days due to stomach pain. In the ED patient stated he has been having dizziness, nausea and is very thirsty. Denied headache, chills, sob, chest pain, vomiting, diarrhea, dysuria, hematuria. Patient knew his name, date, and location although he though he was in the OR and would frequently repeat himself/not answer questions. He was previously on ensure per dietary. He sees his oncologist Dr. Gutiérrez at [facility]. He has no recent travel, lives at [facility] and has had no recent sick contacts. Patient has become weaker and sicker since he started chemotherapy, has not been ambulatory and has been requiring more assistance. He cannot return back to assisted living and will need STR. CHemo will have to be held while he is receiving STR. CTH neg CT A/P- fatty liver, enlarged prostate, cardiomegaly, coronary calcifications Echo- LVH, LVEF nl, impaired LV relaxation mod TSH and NH4- nl narcotics discontinued secondary to confusion ACS ruled out U/A neg for uti covid test pending Patient is an elderly gentleman with multiple comorbidities along with gastric cancer on chemotherapt work up is in progress for etiology of confusion and increased debility possible etiology includes brain mets, dehydration, hypoglycemia, urinary retention, constipation, narcotics, covid prognosis guarded pt is full code would continue supportive care- dietary consult, nutritional supplements, resu eleazar antihypertensives and BPH meds Agree with holding off on sulfonylureas in this elderly patient with decreased appetite For nausea- consideration should be given constipation/ untreated CHF as pos sible etiolgies along with chemotherapy induced nausea bowel regimen For nausea and decreased appetite we could add marinol 2.5 mg po bid, with compazine prn. cont PPI Patient will need SNF placement for STR on dc. Will follow. Thankyou for allowing me to participate in the care of this patient. Please call with questions. Sekou Mcdonough MD [phone] Total time for chart review, examination and coordination of care- 70 minutes
[2019-10-14] MEDS: PANTOPRAZOLE SODIUM 40 MG VIAL IVPUSH SCH (16:48)
--- NOTE | 2019-10-14 17:59 | PN ---
Physical Exam: SUBJECTIVE: Patient seen and examined bedside in the ED. Could say his name and age, was otherwise disoriented and hard to direct. He kept telling me he wanted to go back [facility] and to call them because they'd be worried he was missing. (Licensed Prosthetist/Orthotist [id number]) OBJECTIVE: Vital Signs Period Temp Pulse Resp BP Sys/Davis Pulse Ox Last 24 Hr 97.4 F-98.2 F 67-88 16-20 90-160/70-116 92-98 GENERAL: The patient is awake, alert, no oriented to place or time. HEAD: Normal with no signs of trauma. EYES: PERRL, extraocular movements intact, sclera anicteric, conjunctiva clear. ENT: dry mucous membranes NECK: Trachea midline, full range of motion, supple. LUNGS: Breath sounds equal, clear to auscultation bilaterally HEART: Irregular rhythm, normal rate, ABDOMEN: soft, unclear if tender to palpation. Patient bladder percussed and palpated and feels full. EXTREMITIES: 2+ pulses, warm, well-perfused, no edema. NEUROLOGICAL: Cranial nerves II through XII grossly intact. Normal speech PSYCH: Normal mood, normal affect. SKIN: Warm, dry, decreased turgor Laboratory Results - last 24 hr 10/13/19 10/13/19 10/13/19 12:19 13:37 18:47 Sodium Potassium Chloride Carbon Dioxide Anion Gap BUN Creatinine Est GFR (CKD-EPI)AfAm Est GFR (CKD-EPI)NonAf POC Glucometer Random Glucose Calcium Total Bilirubin AST ALT Alkaline Phosphatase Ammonia Troponin I 0.07 H Cancelled Total Protein Albumin Urine Color Yellow Urine Appearance Clear Urine pH 7.5 Ur Specific Gonzales 1.027 Urine Protein Negative Urine Glucose (UA) Negative Urine Ketones Negative Urine Blood Negative Urine Nitrite Negative Urine Bilirubin Negative Urine Urobilinogen 1.0 Ur Leukocyte Esterase Negative 10/13/19 10/14/19 10/14/19 22:40 10:00 11:09 Sodium 145 Potassium 3.7 Chloride 109 H Carbon Dioxide 28 Anion Gap 9 BUN 18.6 H Creatinine 1.3 Est GFR (CKD-EPI)AfAm 57.26 Est GFR (CKD-EPI)NonAf 49.41 POC Glucometer Random Glucose 117 H Calcium 9.3 Total Bilirubin 1.4 H AST 34 ALT 25 Alkaline Phosphatase 94 Ammonia < 10.00 L Troponin I 0.08 H 0.10 H Total Protein 6.7 Albumin 2.9 L Urine Color Urine Appearance Urine pH Ur Specific Gonzales Urine Protein Urine Glucose (UA) Urine Ketones Urine Blood Urine Nitrite Urine Bilirubin Urine Urobilinogen Ur Leukocyte Esterase 10/14/19 11:30 Sodium Potassium Chloride Carbon Dioxide Anion Gap BUN Creatinine Est GFR (CKD-EPI)AfAm Est GFR (CKD-EPI)NonAf POC Glucometer 117 Random Glucose Calcium Total Bilirubin AST ALT Alkaline Phosphatase Ammonia Troponin I Total Protein Albumin Urine Color Urine Appearance Urine pH Ur Specific Gonzales Urine Protein Urine Glucose (UA) Urine Ketones Urine Blood Urine Nitrite Urine Bilirubin Urine Urobilinogen Ur Leukocyte Esterase Active Medications Generic Name Dose Route Start Last Admin Trade Name Freq PRN Reason Stop Dose Admin Apixaban 2.5 mg 10/14/19 10:00 10/14/19 09:52 Eliquis - PO 2.5 mg BID STEVE Administration Artificial Tears 1 drop 10/14/19 10:00 10/14/19 17:38 Artificial Tears OU 1 drop QID STEVE Administration Brimonidine Tartrate 1 drop 10/14/19 22:00 Alphagan 0.2% - OU TID STEVE Docusate Sodium 100 mg 10/14/19 10:00 10/14/19 09:52 Colace - PO 100 mg DAILY STEVE Administration Docusate Sodium 200 mg 10/14/19 05:12 Colace - PO HS PRN CONSTIPATION Ferrous Sulfate 325 mg 10/14/19 06:00 10/14/19 13:57 Feosol - PO Not Given TID STEVE Lactated Ringer's 1,000 ml in 1,000 mls @ 83 mls/hr 10/13/19 23:45 10/14/19 02:35 Lactated Ringers Solution IV 83 mls/hr ASDIR STEVE Administration Metoprolol Succinate 100 mg 10/14/19 10:00 10/14/19 09:52 Toprol Xl - PO 100 mg DAILY STEVE Administration Morphine Sulfate 2 mg 10/13/19 23:55 10/14/19 09:55 Morphine Sulfate IVPUSH 2 mg Q4H PRN Administration PAIN LEVEL 6-10 Oxycodone HCl 10 mg 10/13/19 23:38 Roxicodone - PO Q6H PRN PAIN LEVEL 6-10 Pantoprazole Sodium 40 mg 10/14/19 14:30 10/14/19 16:48 Protonix Iv IVPUSH 40 mg DAILY STEVE Administration Potassium Chloride 10 meq 10/14/19 10:00 10/14/19 09:52 K-Dur - PO 10 meq DAILY STEVE Administration Timolol Maleate 1 drop 10/14/19 22:00 Timoptic 0.5% OU TID STEVE Trimethobenzamide HCl 300 mg 10/13/19 23:40 Tigan - PO QID PRN NAUSEA ASSESSMENT/PLAN: 88 y.o. Mozambican speaking M PMHx HTN, HLD, DM, CKD, GERD, A-Fib on eliquis, Gastric cancer (restarted chemo last week). Sent from [facility] due to hypertension (136/130), increased confusion, decreased appetite. AMS 2/2 brains mets v. volume depletion v. 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 Gutiérrez: patient restarted FOLFOX treatment last week, can be on hold while patient in the hospital - According to [facility]: patient has been becoming more confused and disoriented over the last 3-4 weeks. And over the last 2 weeks, he's been experiencing decreased PO intake, with increased gagging nausea and some vomiting. They stopped all his medications EXCEPT: Metoprolol, protonix, eliquid and KCL - [facility] said he was going for IVF treatments 2x a week for last 2 weeks because of decreased PO intake without any improvement Gastric Cancer - possible cause of decreased po intake and nausea - GI consult placed - IV protonix - Clear liquids for now Hx AFIB - continue eliquis - continue metoprolol succinate 100 mg HTN - currently only been taking metoprolol because of nausea - BP remains elevated - staring norvas 5 mg po daily Tropenemia - Troponin 0.07 >>> 0.08>>> 0.10 >> continue to trend - Echo results: LV EF is normal, moderate valvular aortic stenosis Increased Qtc - avoid zofran for nausea - pending repeat EKG Covid r/o - Covid PCR pending FEN - IVF - Ensure supplement - Diabetic/Sodium controlled diet DVT Prophylaxis - Eloquis 2.5mg PO BID - SCD's B/L Dispo - Spoke to patient's brother in law who is his health care proxy. He is coming tomorrow. Patient is full code for now. He said he wants to do just what is best for him, so I said we can discuss what he thinks that is after he sees the patient. Visit type - Emergency Visit Emergency Visit: Yes ED Registration Date: 10/13/19 Care time: The patient presented to the Emergency Department on the above date and was hospitalized for further evaluation of their emergent condition. - New Patient This patient is new to me today: Yes Date on this admission: 10/13/19 - Critical Care Critical Care patient: No - Discharge Referral Referred to [facility] Med P.C.: No - Medication Review Med list reviewed for High Risk Meds patients 65 and older: Yes ATTENDING PHYSICIAN STATEMENT I saw and evaluated the patient. I reviewed the resident's note and discussed the case with the resident. I agree with the resident's findings and plan as documented. SUBJECTIVE: OBJECTIVE: ASSESSMENT AND PLAN:
--- NOTE | 2019-10-14 18:29 | PN ---
Teaching Attending Note Name of Resident: Lia Horton ATTENDING PHYSICIAN STATEMENT I saw and evaluated the patient. I reviewed the resident's note and discussed the case with the resident. I agree with the resident's findings and plan as documented. SUBJECTIVE: seen around 10:30 am . unable to use chemist phone , as he is not cooeprative , few Dutch words indicated no pain and knows his name team spoke to [facility] staff who indicated gradual decline in mental status x 1 month , and gagging with occasional comiting x 2 weeks. chemoc started 1 week ago. many of his meds were held with exception of BB, Eliquis, potassium, and one more . all others were held OBJECTIVE: NAd,a wake, alert, knows his first name. dry MM. No armpit sweating, abnormal skin turger CV: RRR, Lungs: CTAB Abd ;soft, bladder is percussed and palpated below umbilicus . NT, Nd. NL BS Ext : No edema or erythema on upper or lower extremities ASSESSMENT AND PLAN: 88 y/o man with h/o Gastric cancer (chemo started 1 week ago), CA, Afib (on Eliquis), DM, BPH, HTN, HLD, CAD and CVA who presented with rapid decline of mental status and poor po intake 1- AMS,/encephalopathy , likely toxic metabolic due to volume depletion , pain, and meds . No signs of infection - IVF - checkTSH - check Ammonia level - bladder scan . if retaining , will put rubio - DC morphine , and oxycodone - if with all above measures , no improvement, will get MRI of brain ( r/o strok e, brain Mets) 2- Elevated trop : EKG reviewed. minimal TWI inlateral leads. minimal elevationin trop . echo reviewed. trend trops 3- H/o Gastric cancer . on active chemo. team spoke to his oncologist who was Ok withholding his chemo 4- N/V /po intake/abd pain. likely all due to his gastric cancer. CT images reviewed. Gastric wall can't be commented on due to lack of contrast. No dilation in gastric cavity though . - ? GI series - ? EGD - GI consult - add PPI IV - clear liquids - cont IVF 5- H/o A fib : cont toprol and Eliquis 7- HTN urgency: due to not taking his meds - cont toprol - add norvasc 8- prostate enlargement on CT. not chaged. f/ua s out pt. dispo : HLOC team will try to conatc family for details and for Code status
[2019-10-14] MEDS ORDERED: amLODIPine BESYLATE 5 MG TABLET (FP) PO ONE (18:40)
[2019-10-14] MEDS ORDERED: amLODIPine BESYLATE 5 MG TABLET (FP) PO SCH (18:45)
[2019-10-14] MEDS ORDERED: PANTOPRAZOLE 40 MG TABLET PO SCH (22:00)
[2019-10-14] MEDS: BRIMONIDINE TARTRATE 0.2% OPHTHALMIC 5 ML BOTTLE OU SCH (22:36)
[2019-10-14] MEDS: TIMOLOL 0.5% OPHTHALMIC SOL 5 ML BOTTLE OU SCH (22:36)
[2019-10-15] MEDS: TIMOLOL 0.5% OPHTHALMIC SOL 5 ML BOTTLE OU SCH ×3 (05:41→21:44)
[2019-10-15] MEDS: LACTATED RINGERS SOLUTION 1,000 ML/1,000 ML INFUS.BAG IV SCH (05:42)
[2019-10-15] MEDS: BRIMONIDINE TARTRATE 0.2% OPHTHALMIC 5 ML BOTTLE OU SCH ×3 (05:42→21:44)
[2019-10-15] MEDS: FERROUS SO4 325 MG TABLET (FP) PO SCH (05:47)
[2019-10-15 07:47] LABS: HEMATOCRIT 38.4 % (35.4-49); HEMOGLOBIN 12.7 GM/dL (11.7-16.9); MCH 32.7 pg (25.7-33.7); MCHC 33.1 g/dl (32.0-35.9); MEAN CELL VOLUME 98.5 fl (80-96); MEAN PLT VOLUME 8.2 fl (7.5-11.1); PLATELET COUNT 167 K/MM3 (134-434); WHITE BLOOD COUNT 5.8 K/mm3 (4.0-10.0)
[2019-10-15 08:30] LABS: BLOOD UREA NITROGEN 18.4 mg/dL (7-18); CALCIUM 8.4 mg/dL (8.5-10.1); CREATININE 1.1 mg/dL (0.55-1.3); MAGNESIUM 2.2 mg/dL (1.8-2.4); PHOSPHOROUS 3.8 mg/dL (2.5-4.9); POTASSIUM 3.7 mmol/L (3.5-5.1)
[2019-10-15] MEDS: PANTOPRAZOLE SODIUM 40 MG VIAL IVPUSH SCH (10:09)
[2019-10-15] MEDS: ARTIFICIAL TEARS (POLYVINYL ALCOHOL) OPTH DROPS OU SCH ×4 (10:09→21:44)
[2019-10-15] MEDS: APIXABAN 2.5 MG TABLET PO SCH ×2 (10:09→21:42)
[2019-10-15] MEDS: POTASSIUM CHLORIDE TABS 10 MEQ TABLET.ER (FP) PO SCH (10:09)
[2019-10-15] MEDS: DOCUSATE SODIUM 100 MG CAPSULE (FP) PO SCH (10:09)
[2019-10-15] MEDS: amLODIPine BESYLATE 5 MG TABLET (FP) PO SCH (10:09)
--- NOTE | 2019-10-15 10:31 | CONSULT ---
Admitting History and Physical - Primary Care Physician PCP: Jhonathan Blanca - Admission History of Present Illness: Per EMR- 88 y.o. Andorran speaking M PMHx HTN, HLD, DM, CKD, GERD, A-Fib on eloquis, Gastric cancer. Sent from [facility] due to hypertension (136/130), increased confusion, decreased appetite. Failure to thrive & abdominal pain decreased PO intake, secondary to gastric cancer Full code. Seen by Palliative care. Pt on clear liquids and Ensure [facility] GI/Onc consults placed Pt with reported gradual decline in mental status x 1 month , and gagging with occasional vomiting x 2 weeks. chemo started 1 week ago poor historian and noncompliant yesterday. Very sweet, verbal, appropriate today. He reported he has been "crying" a lot. r/o depression? History Source: Patient Limitations to Obtaining History: No Limitations - Past Medical History Cardiovascular: Yes: AFIB, Aortic Stenosis, HTN, Hyperlipdemia Gastrointestinal: Yes: Cancer, GERD Renal/: Yes: Renal Inusuff, BPH Heme/Onc: Yes: Current Chemotherapy Endocrine: Yes: Diabetes Mellitus - Smoking History Smoking history: Never smoked Have you smoked in the past 12 months: No - Alcohol/Substance Use Hx Alcohol Use: No - Social History ADL: Independent (has declined recently) History - Admission Reason For Visit: AMS - Diagnostics X-ray: Report Reviewed - General Mental Status: Alert and Oriented, Awake and Alert, Able to Follow Commands Attention: Intact Ability to Follow Directions: Good Head/Neck Control: WFL - Hearing Hearing: Impaired Hearing Aide: No Speech Evaluation - Communication Primary Language: LITHUANIAN Secondary Language: TURKMEN (functional) Communication: Yes: Within Normal Limits - Speech Production Able to Make Needs Known: Yes: WNL - Speech Characteristics Voice Loudness: Normal Voice Pitch: Yes: Normal Voice Phonatory-based Quality: Yes: Normal Speech Pattern: Normal Speech Clarity: < 100% Nasal Resonance: Normal Articulation: Yes: Precise Rate of Speech: Intact - Language/Auditory Comprehension Follows: Yes: 1 Stage Simple Commands Observation: Able to respond to yes/no queries: Yes, Yes/No Confusion: No, Comprehends Conversational Speech: Yes - Language/Verbal Expression Functional Communication Status: Yes: WNL - Swallow Evaluation/Bedside Assessment Current Nutritional Intake: Clear Liquids, Other (ensure.) Oral Secretions: Yes: WFL Dentition: Yes: Edentulous Facial Symmetry at Rest: Symmetrical Facial Symmetry on Retraction: Symmetrical Facial Movement: Controlled Against Resistance Opening: Normal Against Resistance Closing: Normal Pucker Lips: Normal Smile: Normal Lingual Movement: Normal, Symmetric Lingual Speed of Movement: Normal Lingual Movement Strgth Against Opposition: Normal Lingual Movement Characteristics: Normal Velopharyngeal Movement: Normal Laryngeal Elevation: WFL Laryngeal Movement: Able to Palpate Bolus Size: WFL Labial Seal: WFL A-P Transit: WFL Pocketing: None Coughing/Throat Clear: No Change in Voice: No Recommendations - Speech Evaluation, Impression/Plan Impression: verbal, appropriate today. He reported he has been "crying" a lot. r/o depression? Poor PO intake.No overt dysphagia.edentulous - Disposition Discharge to: Snf Facility - Dysphagia Impressions/Plan Swallowing Skills: WF Dysphagia Impressions: Ongoing Evaluation *Silent aspiration: cannot be R/O at bedside - Recommendations Diet Consistency: Dysphagia Pureed (if ok with GI) Liquids: Thin Liquids Supplement: Ensure, Magic Cup, Ensure Pudding
--- NOTE | 2019-10-15 12:31 | CON.GI ---
Consult Consult Specialty:: Gastroenterology Referred by:: Lia Horton MD Reason for Consultation:: Vomiting with gastric cancer - History of Present Illness Chief Complaint: Vomiting and altered mental status History of Present Illness: 88M was transferred form [facility] for confusion and vomiting . I perfomed an EGD and a colonosocpy on 04/25/19 to evaluate anemia and discovered a gastric body cancer. Colonoscopy led to the removal of a right colon adenoma and an inflammatory cecal polyp and revealed a small descending colon angiodysplasia and sigmoid diverticulosis. His health care proxy Javid Vazquez ) informed me that his cancer is being treated by Dr Holly ( [phone]) of [facility] ( unable to get through ) where he completed a course of RT and is completing a course of chemotherapy. His CT does not reval obstruction and head CT is without obvious mets. Dakota is unable to give a reliable history. Javid informed me that Dakota is estranged from his daughter and Javid has been left in charge as his ( the sister) is disabled following an amputation - History Source History Provided By: Significant Other Limitations to Obtaining History: Poor Historian - Past Medical History Cardio/Vascular: Yes: AFIB, Aortic Stenosis, HTN, Hyperlipdemia, [place] (02/2000) Gastrointestinal: Yes: Cancer (Gastric cancer dxed on 04/25/19 EGD now undergoing chemorx after completing RT ), Diverticulosis, GERD, Other (right colon adenoma 04/14, descending colon angiodysplasia) Renal/: Yes: Renal Inusuff, BPH Heme/Onc: Yes: Cancer (Gastric cancer see above) Endocrine: Yes: Diabetes Mellitus Additional Medical History: Glaucoma - Past Surgical History Past Surgical History: Yes: Appendectomy, Colonoscopy, Upper Endoscopy - Alcohol/Substance Use Hx Alcohol Use: No History of Substance Use: reports: None - Smoking History Smoking history: Never smoked Have you smoked in the past 12 months: No - Social History Usual Living Arrangement: Assisted Living ADL: Family Assistance (has declined recently) 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 (year[place] age 29 History of Recent Travel: No Home Medications - Allergies Allergies/Adverse Reactions: Allergies Allergy/AdvReac Type Severity Reaction Status Date / Time aspirin Allergy Verified 08/28/19 14:42 - Home Medications Home Medications: Ambulatory Orders Atorvastatin Ca [Lipitor] 40 mg PO HS 04/24/19 Finasteride [Proscar -] 5 mg PO HS 04/24/19 Furosemide 40 mg PO DAILY 04/24/19 Glimepiride [Amaryl -] 2 mg PO DAILY 04/24/19 Metoprolol Succinate [Toprol Xl] 100 mg PO DAILY 04/24/19 Mirtazapine 15 mg PO HS 04/24/19 Potassium Chloride 10 meq PO DAILY 04/24/19 Pantoprazole Sodium [Protonix -] 40 mg PO HS #30 tablet.ec 04/25/19 Amlodipine Besylate [Norvasc -] 5 mg PO DAILY 09/12/19 Apixaban [Eliquis] 2.5 mg PO BID 09/12/19 Bimatoprost [Lumigan] 1 drop OU HS 09/12/19 Brimonidine Tartrate/Timolol [Combigan 0.2%-0.5% Eye Drops] 5 ml OP TID 09/12/19 Losartan Potassium 100 mg PO DAILY 09/12/19 Tamsulosin HCl [Flomax] 0.4 mg PO HS 09/12/19 Docusate Sodium [Colace] 200 mg PO HS PRN 09/13/19 Ferrous Sulfate 325 mg PO TID 09/13/19 Lidocaine 5% Patch [Lidoderm -] 1 patch TP DAILY PRN 09/13/19 Polyvinyl Alcohol [Artificial Tears] 1 drop OU QID 09/13/19 Sennosides [Senna] 17.2 mg PO HS PRN 09/13/19 Ondansetron HCl [Zofran] 4 mg PO Q8H #9 tablet 09/15/19 Family Medical History Family Hx Cardiac Disorders: Mother ( 64 of [place]) Family Hx Gastrointestinal Disorder: Father (did 75 of ulcer) Physical Exam-GI Vital Signs: Vital Signs Temperature 98.2 F 10/15/19 09:00 Pulse Rate 81 10/15/19 09:00 Respiratory Rate 20 10/15/19 09:00 Blood Pressure 136/85 10/15/19 09:00 O2 Sat by Pulse Oximetry (%) 98 10/15/19 09:00 CBC,CMP WBC 5.8 K/mm3 (4.0-10.0) 10/15/19 06:38 RBC 3.90 M/mm3 (4.00-5.60) L 10/15/19 06:38 Hgb 12.7 GM/dL (11.7-16.9) 10/15/19 06:38 Hct 38.4 % (35.4-49) 10/15/19 06:38 MCV 98.5 fl (80-96) H 10/15/19 06:38 MCH 32.7 pg (25.7-33.7) 10/15/19 06:38 MCHC 33.1 g/dl (32.0-35.9) 10/15/19 06:38 RDW 21.0 % (11.9-15.9) H 10/15/19 06:38 Plt Count 167 K/MM3 (134-434) D 10/15/19 06:38 MPV 8.2 fl (7.5-11.1) 10/15/19 06:38 Absolute Neuts (auto) 6.0 K/mm3 (1.5-8.0) 10/13/19 13:15 Neutrophils % 77.3 % (42.8-82.8) 10/13/19 13:15 Lymphocytes % 13.2 % (8-40) D 10/13/19 13:15 Monocytes % 7.6 % (3.8-10.2) 10/13/19 13:15 Eosinophils % 0.7 % (0-4.5) 10/13/19 13:15 Basophils % 1.2 % (0-2.0) 10/13/19 13:15 Nucleated RBC % 0 % (0-0) 10/13/19 13:15 Sodium 147 mmol/L (136-145) H 10/15/19 06:38 Potassium 3.7 mmol/L (3.5-5.1) 10/15/19 06:38 Chloride 112 mmol/L (98-107) H 10/15/19 06:38 Carbon Dioxide 26 mmol/L (21-32) 10/15/19 06:38 Anion Gap 9 MMOL/L (8-16) 10/15/19 06:38 BUN 18.4 mg/dL (7-18) H 10/15/19 06:38 Creatinine 1.1 mg/dL (0.55-1.3) 10/15/19 06:38 Est GFR (CKD-EPI)AfAm 70.08 10/15/19 06:38 Est GFR (CKD-EPI)NonAf 60.46 10/15/19 06:38 POC Glucometer 113 UNITS (80-120) 10/15/19 12:22 Random Glucose 93 mg/dL (74-106) 10/15/19 06:38 Calcium 8.4 mg/dL (8.5-10.1) L 10/15/19 06:38 Phosphorus 3.8 mg/dL (2.5-4.9) 10/15/19 06:38 Magnesium 2.2 mg/dL (1.8-2.4) 10/15/19 06:38 Total Bilirubin 1.4 mg/dL (0.2-1) H 10/14/19 10:00 AST 34 U/L (15-37) 10/14/19 10:00 ALT 25 U/L (13-61) 10/14/19 10:00 Alkaline Phosphatase 94 U/L (45-117) 10/14/19 10:00 Ammonia < 10.00 umol/L (11-32) L 10/14/19 11:09 Creatine Kinase 58 U/L (26-308) 10/14/19 18:28 Troponin I 0.08 ng/ml (0.00-0.05) H 10/15/19 06:38 Total Protein 6.7 g/dl (6.4-8.2) 10/14/19 10:00 Albumin 2.9 g/dl (3.4-5.0) L 10/14/19 10:00 TSH 0.02 uIU/ml (0.358-3.74) L D 10/15/19 06:38 Free T4 1.70 ng/dl (0.76-1.16) H 10/15/19 06:38 Current Medications Generic Name Dose Route Start Last Admin Trade Name Freq PRN Reason Stop Dose Admin Amlodipine Besylate 5 mg 10/15/19 10:00 10/15/19 10:09 Norvasc - PO 5 mg DAILY STEVE Administration Apixaban 2.5 mg 10/14/19 10:00 10/15/19 10:09 Eliquis - PO 2.5 mg BID STEVE Administration Artificial Tears 1 drop 10/14/19 10:00 10/15/19 10:09 Artificial Tears OU 1 drop QID STEVE Administration Brimonidine Tartrate 1 drop 10/14/19 22:00 10/15/19 05:42 Alphagan 0.2% - OU 1 drop TID STEVE Administration Docusate Sodium 100 mg 10/14/19 10:00 10/15/19 10:09 Colace - PO 100 mg DAILY STEVE Administration Docusate Sodium 200 mg 10/14/19 05:12 Colace - PO HS PRN CONSTIPATION Ferrous Sulfate 325 mg 10/14/19 06:00 10/15/19 05:47 Feosol - PO Not Given TID STEVE Lactated Ringer's 1,000 ml in 1,000 mls @ 83 mls/hr 10/13/19 23:45 10/15/19 05:42 Lactated Ringers Solution IV 83 mls/hr ASDIR STEVE Administration Metoprolol Succinate 100 mg 10/14/19 10:00 10/15/19 10:09 Toprol Xl - PO 100 mg DAILY STEVE Administration Pantoprazole Sodium 40 mg 10/14/19 14:30 10/15/19 10:09 Protonix Iv IVPUSH 40 mg DAILY STEVE Administration Potassium Chloride 10 meq 10/14/19 10:00 10/15/19 10:09 K-Dur - PO 10 meq DAILY STEVE Administration Timolol Maleate 1 drop 10/14/19 22:00 10/15/19 05:41 Timoptic 0.5% OU 1 drop TID STEVE Administration Trimethobenzamide HCl 300 mg 10/13/19 23:40 Tigan - PO QID PRN NAUSEA Constitutional: Yes: Anxious, Other (confused) Eyes: Yes: Conjunctiva Clear HENT: Yes: Atraumatic Neck: Yes: Trachea Midline Cardiovascular: Yes: Tachycardia Respiratory: Yes: CTA Bilaterally Gastrointestinal Inspection: Yes: Scars (healed RLQ incision) ...Auscultate: Yes: Normoactive Bowel Sounds ...Palpate: Yes: Soft, Other (nontender) ...Rectal Exam: Yes: Guaiac Negative (2+ prostate, no masses, brown guaiac negatve stool) Edema: No Neurological: Yes: Confusion Labs: CBC, BMP 10/15/19 06:38 10/15/19 06:38 INR, PTT INR 1.39 (0.83-1.09) H 10/13/19 13:15 Imaging - Results Cat Scan: Report Reviewed ( Final Report CT ABDOMEN & PELVIS CT WITH CONTR Show Printer-Friendly Version Patient Name: Dakota Art : 1930 ID: [id number] Study Date: 13-Oct-2019 16:38 Clarence Damon Name: DAKOTA ART DEPARTMENT OF RADIOLOGY Phys: Aubrey Haney RES EM : 1930 Age: 88 Sex: M [facility] Acct: [id number] Loc: [address] Exam Date: 10/13/19 Status: KENDALL Raimrez [id number] Unit Number: [id number] EXAM#: TYPE/EXAM: RESULT: [id number] CT/ABDOMEN PELVIS CT WITH CONTR Abdomen and pelvis CT with contrast Clinical information: generalized abdominal pain; ams Multiplanar imaging was performed following the intravenous administration of nonionic contrast. Enteric contrast was not administered. No evidence of pneumoperitoneum, abscess, free intraperitoneal fluid or bowel obstruction. The appendix is not definitely identified h owever no indirect CT signs of acute appendicitis are noted. There is no CT evidence of acute diverticulitis or obvious acute colitis. No gross small bowel abnormality is identified allowing for lack of intraluminal contrast. Stable subcentimeter right hepatic lobe low-attenuation focus in comparison to prior studies including 05/02/2019 possibly representing a cyst. There is probable diffuse hepatic steatosis. The spleen, pancreas, gallbladder, adrenal glands and kidneys demonstrate no discrete pathology. Small right renal cortical cyst. There is no aortic aneurysm. No definite lymphadenopathy is noted on the basis of size criteria. As on prior studies there is moderate prostate enlargement. Focal increased soft tissue density is again seen as on prior studies along the urinary latter probably on the basis of median lobe prostate hypertrophy and less likely representing an intrinsic urinary bladder lesion. A 0.9 cm urinary bladder calculus is again visualized. The visualized osseous structures demonstrate no gross acute abnormality. Note is again made of extensive atherosclerotic coronary calcifications. There is probable multichamber cardiomegaly. Impression: No definite CT findings of acute pathology are seen. There has been no definite interval change in comparison to a prior CT exam of 09/11/2019. 0.9 cm urinary bladder calculus. Moderate prostate enlargement. As on prior studies there is increased soft tissue density along the urinary bladder base probably due to median lobe prostate hypertrophy and less likely representing an intrinsic urinary bladder lesion. Urinary consultation is suggested if not previously performed. Probable diffuse hepatic steatosis. Stable subcentimeter right hepatic lobe hypodense focus possibly representing a cyst. Reported By: Rodriguez Gambino MD 10/13/191731 Aubrey Haney Technologist: Werner Paz Transcribed Date/Time: 10/13/191731 Jde Developer: Rodriguez Gambino Printed Date/Time: By: Signed by: Rodriguez Gambino Signed on: 13-Oct-2019 17:33) Problem List - Problems (1) Gastric cancer Code(s): C16.9 - MALIGNANT NEOPLASM OF STOMACH, UNSPECIFIED Qualifiers: Malignant neoplasm of stomach location: unspecified location Qualified Code(s): C16.9 - Malignant neoplasm of stomach, unspecified (2) Vomiting Code(s): R11.10 - VOMITING, UNSPECIFIED (3) Diabetes mellitus Code(s): E11.9 - TYPE 2 DIABETES MELLITUS WITHOUT COMPLICATIONS (4) Arteriosclerotic heart disease (ASHD) Code(s): I25.10 - ATHSCL HEART DISEASE OF [place] CORONARY ARTERY W/O ANG PCTRS (5) History of [place] (myocardial infarction) Code(s): I25.2 - OLD MYOCARDIAL INFARCTION (6) Atrial fibrillation Code(s): I48.91 - UNSPECIFIED ATRIAL FIBRILLATION (7) Hypertension Code(s): I10 - ESSENTIAL (PRIMARY) HYPERTENSION (8) Hyperlipidemia Code(s): E78.5 - HYPERLIPIDEMIA, UNSPECIFIED (9) Glaucoma Code(s): H40.9 - UNSPECIFIED GLAUCOMA (10) Altered mental status Code(s): R41.82 - ALTERED MENTAL STATUS, UNSPECIFIED (11) Colon adenoma Code(s): D12.6 - BENIGN NEOPLASM OF COLON, UNSPECIFIED (12) Angiodysplasia of colon Code(s): K55.20 - ANGIODYSPLASIA OF COLON WITHOUT HEMORRHAGE (13) Diverticulosis Code(s): K57.90 - DVRTCLOS OF INTEST, PART UNSP, W/O PERF OR ABSCESS W/O BLEED Assessment/Plan Impression: - Given his gastric cancer a UGI will be ordered to see of there is obstruction at the gastric level as the cause of his vomiting. It may alternatively be a side effect of his chemotherapy the names of which the oncology consult will hopefully provide - Personal h/o colon adenoma - Colon diverticulosis and angiodysplasia Plan: -- UGI series -- Await oncology data as I could not contact the oncologist at [facility], Dr Holly -- Clear liquids for now
--- NOTE | 2019-10-15 12:59 | CONSULT ---
Consultation: REQUESTING PROVIDER: Dr. Blanca CONSULT REQUEST: We have been asked to medically evaluate this patient for altered mental status . HISTORY OF PRESENT ILLNESS: Pt. is an 88 y.o. M w/ PMHx. of DM, HTN, GERD, BPH, Hx. of CVA, Afib( on reduced dose Eliquis because of suspected GIB), Dementia and Gastric CA (currently on FOLFOX-last received last week, s/p RT) presents from [facility] for altered mental status. Pt. is an unreliable historian and attempts were made x2 to use [employer] unsuccessfully. Pt. speaks some Urdu as he has been in the [place] since 29 y.o. Pt. denies any current pain but was upset about being in a new location. Pt. had Head CT which was negative for acute pathology. Pt. had CT A/P with ONLY IV contrast that did not show any interval change from one performed in July: diffuse hepatic steatosis, stable subcentimeter R. hepatic lobe hypodense focus suggestive of cyst, and moderate prostatic enlargement. Pt. has had EGD and colonoscopy performed by Dr. Bailon earlier this year whereupon Gastric CA was discovered and diagnosed. Attempted to call Pt.s oncologist hwever there was no reply. Discussed with RN who takes care of him at [place], Pt. began having AMS 4-5 days ago- difficulty finding words, repeating oneself, and refusing to take certain medications; at baseline he is A&O x 3. Discussed with Primary team that they discussed with Dr. Gutiérrez that FOLFOX will be interrupted during this hospitalization. Pt. sent for MRI but was too agitated to stay for it. REVIEW OF SYSTEMS: As above PHYSICAL EXAMINATION Vital Signs - 24 hr 10/14/19 10/14/19 10/14/19 15:36 16:03 18:26 Temperature 97.4 F L 97.5 F L Pulse Rate 68 86 Respiratory 20 20 20 Rate Blood Pressure 160/116 H 153/112 H O2 Sat by Pulse 92 L 94 L Oximetry (%) 10/14/19 10/14/19 10/15/19 21:00 22:00 05:00 Temperature 98 F 97.9 F Pulse Rate 84 71 Respiratory 20 20 20 Rate Blood Pressure 134/89 142/93 O2 Sat by Pulse 99 99 98 Oximetry (%) 10/15/19 09:00 Temperature 98.2 F Pulse Rate 81 Respiratory 20 Rate Blood Pressure 136/85 O2 Sat by Pulse 98 Oximetry (%) GENERAL: Awake, alert, and fully oriented but confused speech HEAD: Normal with no signs of trauma. EYES: Extraocular movements intact, sclera anicteric, conjunctiva clear. EARS, NOSE, THROAT: Ears normal, nares patent, oropharynx clear without exudates. Moist mucous membranes. NECK: Normal range of motion, supple without lymphadenopathy, JVD, or masses. LUNGS: Breath sounds equal, clear to auscultation bilaterally. No wheezes, and no crackles. No accessory muscle use. HEART: Regular rate and rhythm, normal S1 and S2 without murmur ABDOMEN: Soft, nontender, not distended, normoactive bowel sounds, no guarding, no rebound, no masses. No hepatomegaly or splenomegaly. UPPER EXTREMITIES: warm, well-perfused. No cyanosis. No clubbing. No peripheral edema. LOWER EXTREMITIES: 2+ dorsal pedal pulses, warm, well-perfused. No calf tenderness. No peripheral edema. NEUROLOGICAL: Confused repetitive speech PSYCHIATRIC: Cooperative. Good eye contact. Appropriate mood and affect. SKIN: Warm, dry, normal turgor Laboratory Results - last 24 hr 10/14/19 10/15/19 10/15/19 18:28 06:10 06:38 WBC RBC Hgb Hct MCV MCH MCHC RDW Plt Count MPV Sodium 147 H Potassium 3.7 Chloride 112 H Carbon Dioxide 26 Anion Gap 9 BUN 18.4 H Creatinine 1.1 Est GFR (CKD-EPI)AfAm 70.08 Est GFR (CKD-EPI)NonAf 60.46 POC Glucometer 93 Random Glucose 93 Calcium 8.4 L Phosphorus 3.8 Magnesium 2.2 Creatine Kinase 58 Troponin I 0.10 H 0.08 H TSH 0.02 L D Free T4 1.70 H 10/15/19 10/15/19 06:38 12:22 WBC 5.8 RBC 3.90 L Hgb 12.7 Hct 38.4 MCV 98.5 H MCH 32.7 MCHC 33.1 RDW 21.0 H Plt Count 167 D MPV 8.2 Sodium Potassium Chloride Carbon Dioxide Anion Gap BUN Creatinine Est GFR (CKD-EPI)AfAm Est GFR (CKD-EPI)NonAf POC Glucometer 113 Random Glucose Calcium Phosphorus Magnesium Creatine Kinase Troponin I TSH Free T4 Active Medications Generic Name Dose Route Start Last Admin Trade Name Freq PRN Reason Stop Dose Admin Amlodipine Besylate 5 mg 10/15/19 10:00 10/15/19 10:09 Norvasc - PO 5 mg DAILY SETVE Administration Apixaban 2.5 mg 10/14/19 10:00 10/15/19 10:09 Eliquis - PO 2.5 mg BID STEVE Administration Artificial Tears 1 drop 10/14/19 10:00 10/15/19 10:09 Artificial Tears OU 1 drop QID STEVE Administration Brimonidine Tartrate 1 drop 10/14/19 22:00 10/15/19 05:42 Alphagan 0.2% - OU 1 drop TID STEVE Administration Docusate Sodium 100 mg 10/14/19 10:00 10/15/19 10:09 Colace - PO 100 mg DAILY STEVE Administration Docusate Sodium 200 mg 10/14/19 05:12 Colace - PO HS PRN CONSTIPATION Ferrous Sulfate 325 mg 10/14/19 06:00 10/15/19 05:47 Feosol - PO Not Given TID STEVE Lactated Ringer's 1,000 ml in 1,000 mls @ 83 mls/hr 10/13/19 23:45 10/15/19 05:42 Lactated Ringers Solution IV 83 mls/hr ASDIR STEVE Administration Metoprolol Succinate 100 mg 10/14/19 10:00 10/15/19 10:09 Toprol Xl - PO 100 mg DAILY STEVE Administration Pantoprazole Sodium 40 mg 10/14/19 14:30 10/15/19 10:09 Protonix Iv IVPUSH 40 mg DAILY STEVE Administration Potassium Chloride 10 meq 10/14/19 10:00 10/15/19 10:09 K-Dur - PO 10 meq DAILY STEVE Administration Timolol Maleate 1 drop 10/14/19 22:00 10/15/19 05:41 Timoptic 0.5% OU 1 drop TID STEVE Administration Trimethobenzamide HCl 300 mg 10/13/19 23:40 Tigan - PO QID PRN NAUSEA ASSESSMENT/PLAN: Pt. is an 88 y.o. M w/ PMHx. of DM, HTN, GERD, BPH, Hx. of CVA, Afib(on reduced dose Eliquis because of suspected GIB), Dementia and Gastric CA (currently on FOLFOX-last received last week, s/p RT) presents from [facility] for altered mental status. We are called to assess for possible metastases to the brain. #Gastric CA currently on FOLFOX with Altered mental status Head CT negative, f/u MRI Pt. currently has no metabolic derangements that would explain his mental status Discontinue Iron as constipation can be causing some of symptoms. GI consult appreciated, low suspicion that Pt. is having GIB as Hemoglobin is stable Monitor stool off Iron supplements obtain records from [facility] Cannot rule out that this is a progression of his dementia Unclear when last BM was however no signs of obstruction on CT Scan (no contrast) but Pt. had decreased PO intake and had to have IVF prior to resuming FOLFOX. Dispo: We will continue to follow the patient. Thank you for this consultative opportunity. Visit type - Medication Review Med list reviewed for High Risk Meds patients 65 and older: Yes - Emergency Visit Emergency Visit: Yes ED Registration Date: 10/13/19 Care time: The patient presented to the Emergency Department on the above date and was hospitalized for further evaluation of their emergent condition. - New Patient This patient is new to me today: Yes Date on this admission: 10/15/19 - Critical Care Critical Care patient: No ATTENDING PHYSICIAN STATEMENT I saw and evaluated the patient. I reviewed the resident's note and discussed the case with the resident. I agree with the resident's findings and plan as documented. SUBJECTIVE: OBJECTIVE: ASSESSMENT AND PLAN:
[2019-10-15] MEDS ORDERED: SODIUM CHLORIDE 1,000 ML IV SCH (13:30)
--- NOTE | 2019-10-15 18:08 | PN ---
Teaching Attending Note Name of Resident: Lia Horton ATTENDING PHYSICIAN STATEMENT I saw and evaluated the patient. I reviewed the resident's note and discussed the case with the resident. I agree with the resident's findings and plan as documented. 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 he denies pain, but feels lonely . cries and hen switched to Telugu language OBJECTIVE: NAd,awake, alert, knows his name. dry MM. CV: RRR, Lungs: CTAB Abd;soft, NT, Nd. NL BS Ext: No edema or erythema on upper or lower extremities ASSESSMENT AND PLAN: 88 y/o man with h/o Gastric cancer (chemo started 1 week ago), [place], Afib (on Eliquis), DM, BPH, HTN, HLD, CAD and CVA who presented with rapid decline of mental status and poor po intake 1- AMS/encephalopathy , likely toxic metabolic due to volume depletion, pain, and meds . No signs of infection. he seems to be lonely as he was more awake, and cooperative and spoke clearly when his brother in law came. per brother in law, he has neen mentally declining slowly, and now with COVID , he did not see family for few months which is affeting him . - cont IVF - repaat TSH, FT4, FT3. possible hyperthyroidism - ammonia Nl - could not tolerate MRI of the brain. I doubt mets causing his condition 2- Elevated trop :trended down. s 3- H/o Gastric cancer . on active chemo which is being on hold . seen by onc here 4- N/V /po intake/abd pain. likely all due to his gastric cancer/chemo effect . - appreciate GI input. - follow UGI series - PPI - clear liquids - cont IVF 5- H/o A fib: cont toprol and Eliquis 7- HTN urgency: due to not taking his meds - cont toprol - cont norvasc - resume low dose losartan 50 mg . his renal function is stable 8- Prostate enlargement on CT. not changed. f/u as out pt. dispo : HLOC patient is full code and will cont withall aggressive measures
--- NOTE | 2019-10-15 19:37 | PN ---
Physical Exam: SUBJECTIVE: Patient seen and examined bedside, very upset and emotional. Hard to keep him focused with patient transport officer on what's wrong. He just wants to go back to [place], he's afraid he was sent here to . OBJECTIVE: Vital Signs Period Temp Pulse Resp BP Sys/Davis Pulse Ox Last 24 Hr 97.5 F-98.2 F 71-95 18-20 134-160/83-103 98-99 GENERAL: The patient is awake, alert, no oriented to place or time. HEAD: Normal with no signs of trauma. EYES: PERRL, extraocular movements intact, sclera anicteric, conjunctiva clear. ENT: dry mucous membranes NECK: Trachea midline, full range of motion, supple. LUNGS: Breath sounds equal, clear to auscultation bilaterally HEART: Irregular rhythm, normal rate ABDOMEN: soft, unclear if tender to palpation. Patient bladder percussed and palpated and feels full. EXTREMITIES: , warm, well-perfused, no edema. PSYCH: depressed mood, emotional and upset Laboratory Results - last 24 hr 10/14/19 10/14/19 10/15/19 10:00 18:28 06:10 WBC RBC Hgb Hct MCV MCH MCHC RDW Plt Count MPV Sodium Potassium Chloride Carbon Dioxide Anion Gap BUN Creatinine Est GFR (CKD-EPI)AfAm Est GFR (CKD-EPI)NonAf POC Glucometer 93 Random Glucose Calcium Phosphorus Magnesium Creatine Kinase 58 Troponin I 0.10 H TSH Free T4 COVID-19 (JULIA) Not detected 10/15/19 10/15/19 10/15/19 06:38 06:38 12:22 WBC 5.8 RBC 3.90 L Hgb 12.7 Hct 38.4 MCV 98.5 H MCH 32.7 MCHC 33.1 RDW 21.0 H Plt Count 167 D MPV 8.2 Sodium 147 H Potassium 3.7 Chloride 112 H Carbon Dioxide 26 Anion Gap 9 BUN 18.4 H Creatinine 1.1 Est GFR (CKD-EPI)AfAm 70.08 Est GFR (CKD-EPI)NonAf 60.46 POC Glucometer 113 Random Glucose 93 Calcium 8.4 L Phosphorus 3.8 Magnesium 2.2 Creatine Kinase Troponin I 0.08 H TSH 0.02 L D Free T4 1.70 H COVID-19 (JULIA) Active Medications Generic Name Dose Route Start Last Admin Trade Name Freq PRN Reason Stop Dose Admin Amlodipine Besylate 5 mg 10/15/19 10:00 10/15/19 10:09 Norvasc - PO 5 mg DAILY STEVE Administration Apixaban 2.5 mg 10/14/19 10:00 10/15/19 10:09 Eliquis - PO 2.5 mg BID STEVE Administration Artificial Tears 1 drop 10/14/19 10:00 10/15/19 18:13 Artificial Tears OU 1 drop QID STEVE Administration Brimonidine Tartrate 1 drop 10/14/19 22:00 10/15/19 15:00 Alphagan 0.2% - OU 1 drop TID STEVE Administration Docusate Sodium 100 mg 10/14/19 10:00 10/15/19 10:09 Colace - PO 100 mg DAILY STEVE Administration Docusate Sodium 200 mg 10/14/19 05:12 Colace - PO HS PRN CONSTIPATION Sodium Chloride 1,000 mls @ 100 mls/hr 10/15/19 13:30 Normal Saline - IV 10/15/19 23:29 ASDIR STEVE Losartan Potassium 50 mg 10/16/19 10:00 Cozaar - PO DAILY STEVE Metoprolol Succinate 100 mg 10/14/19 10:00 10/15/19 10:09 Toprol Xl - PO 100 mg DAILY STEVE Administration Pantoprazole Sodium 40 mg 10/14/19 14:30 10/15/19 10:09 Protonix Iv IVPUSH 40 mg DAILY STEVE Administration Potassium Chloride 10 meq 10/14/19 10:00 10/15/19 10:09 K-Dur - PO 10 meq DAILY STEVE Administration Timolol Maleate 1 drop 10/14/19 22:00 10/15/19 15:00 Timoptic 0.5% OU 1 drop TID STEVE Administration Trimethobenzamide HCl 300 mg 10/13/19 23:40 Tigan - PO QID PRN NAUSEA ASSESSMENT/PLAN: 88 y.o. Gibraltarian speaking M PMHx HTN, HLD, DM, CKD, GERD, A-Fib on eliquis, Gastric cancer (restarted chemo last week). Sent from [facility] due to hypertension (136/130), increased confusion, decreased appetite. AMS 2/2 brains mets v. volume depletion v. 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 Gutiérrez: patient restarted FOLFOX treatment last week, can be on hold while patient in the hospital Gastric Cancer - possible cause of decreased po intake and nausea - GI consult placed - IV protonix - Clear liquids for now Hyperthryoid: Elevated Ft4 & Low TSH - repeat labs in AM with ft3 to confirm - consider starting methimazole v outpatient endocrinology work up Hx AFIB - continue eliquis - continue metoprolol succinate 100 mg HTN - currently only been taking metoprolol because of nausea - BP remains elevated - staring norvas 5 mg po daily Tropenemia - trending down Increased Qtc - avoid zofran for nausea Covid r/o - negative FEN - IVF - Ensure supplement - Advance for liquids to soft diet tomorrow see how patient tolerates DVT Prophylaxis - Eloquis 2.5mg PO BID - SCD's B/L Dispo Dr. Guerrero spoke to patient's brother in law today. He signed waiver for medical records release from the patient's oncologist. Javid states he wants everything done for the patient, patient remains full code. He believes the patient is a little more confused but mostly very depressed. Social work informed us that the patient can not continue chemotherapy if he goes to a [facility], however, he will be unable to return to [facility] without having completed a [facility] program. Ongoing discuss with family and heme/onc and SW about dispo. Visit type - Emergency Visit Emergency Visit: Yes ED Registration Date: 10/13/19 Care time: The patient presented to the Emergency Department on the above date and was hospitalized for further evaluation of their emergent condition. - New Patient This patient is new to me today: No - Critical Care Critical Care patient: No - Discharge Referral Referred to [facility] Med P.C.: No - Medication Review Med list reviewed for High Risk Meds patients 65 and older: Yes ATTENDING PHYSICIAN STATEMENT I saw and evaluated the patient. I reviewed the resident's note and discussed the case with the resident. I agree with the resident's findings and plan as documented. SUBJECTIVE: OBJECTIVE: ASSESSMENT AND PLAN:
--- NOTE | 2019-10-15 22:32 | PN ---
Teaching Attending Note Name of Resident: Ren Chapman ATTENDING PHYSICIAN STATEMENT I saw and evaluated the patient. I reviewed the resident's note and discussed the case with the resident. I agree with the resident's findings and plan as documented. ASSESSMENT AND PLAN: Pt. is an 88 y.o. M w/ PMHx. of DM, HTN, GERD, BPH, Hx. of CVA, Afib(on reduced dose Eliquis because of suspected GIB), Dementia and Gastric CA (currently on FOLFOX-last received last week, s/p RT) presents from [facility] for altered mental status. 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 BPH Urine cx pending. Check blood cx Being treated at [facility] will follow clinical course
[2019-10-16] MEDS ORDERED: SODIUM CHLORIDE NASAL SPRAY 44 ML BOTTLE NS PRN (06:02)
[2019-10-16] MEDS: TIMOLOL 0.5% OPHTHALMIC SOL 5 ML BOTTLE OU SCH ×3 (06:37→21:16)
[2019-10-16] MEDS: BRIMONIDINE TARTRATE 0.2% OPHTHALMIC 5 ML BOTTLE OU SCH ×3 (06:38→21:15)
[2019-10-16 07:48] LABS: HEMATOCRIT 39.5 % (35.4-49); HEMOGLOBIN 13.2 GM/dL (11.7-16.9); MCH 32.8 pg (25.7-33.7); MCHC 33.4 g/dl (32.0-35.9); MEAN CELL VOLUME 98.3 fl (80-96); MEAN PLT VOLUME 8.3 fl (7.5-11.1); PLATELET COUNT 180 K/MM3 (134-434); RBC 4.02 M/mm3 (4.00-5.60); RDW 20.6 % (11.9-15.9); WHITE BLOOD COUNT 6.8 K/mm3 (4.0-10.0)
[2019-10-16 08:17] LABS: BLOOD UREA NITROGEN 14.9 mg/dL (7-18); CALCIUM 8.3 mg/dL (8.5-10.1); POTASSIUM 3.5 mmol/L (3.5-5.1)
[2019-10-16] MEDS ORDERED: PNEUMOC 13-VAL CONJ-DIP CRM/PF 0.5 ML DISP.SYRIN IM ONE (09:10)
[2019-10-16] MEDS: APIXABAN 2.5 MG TABLET PO SCH ×2 (10:12→21:14)
[2019-10-16] MEDS: DOCUSATE SODIUM 100 MG CAPSULE (FP) PO SCH (10:12)
[2019-10-16] MEDS: ARTIFICIAL TEARS (POLYVINYL ALCOHOL) OPTH DROPS OU SCH ×4 (10:13→21:16)
[2019-10-16] MEDS: LOSARTAN POTASSIUM 50 MG TABLET (FP) PO SCH (10:14)
[2019-10-16] MEDS: POTASSIUM CHLORIDE TABS 10 MEQ TABLET.ER (FP) PO SCH (10:14)
[2019-10-16] MEDS: amLODIPine BESYLATE 5 MG TABLET (FP) PO SCH (10:14)
[2019-10-16] MEDS: PANTOPRAZOLE SODIUM 40 MG VIAL IVPUSH SCH (10:15)
--- NOTE | 2019-10-16 10:16 | PN ---
Progress Note (short form) - Note Progress Note: Palliative care f/up 88 y.o. Yoruba speaking M PMHx HTN, HLD, DM, CKD, GERD, BPH, CAD, CVA, glaucoma,A-Fib on eliquis, Gastric cancer (oxaliplatin, leucovorin, 5-FU)- recently treated for uti with doxycycline. He is a resident of [facility] and was admitted to [facility] 10[facility]12 with uncontrolled hypertension (136/130) and increased confusion over the past few days. The staff stated he has been having difficulty urinating, decreased appetite and has had his medications (mirtazapine, furosemide, finasteride, flomax, losartan, atorvastatin, amlodipine, iron) on hold for 19 days due to stomach pain. In the ED patient stated he has been having dizziness, nausea and is very thirsty. Denied headache, chills, sob, chest pain, vomiting, diarrhea, dysuria, hematuria. Patient knew his name, date, and location although he though he was in the OR and would frequently repeat himself/not answer questions. He was previously on ensure per dietary. He sees his oncologist Dr. Gutiérrez at [facility]. He has no recent travel, lives at [facility] and has had no recent sick contacts. Patient has become weaker and sicker since he started chemotherapy, has not been ambulatory and has been requiring more assistance. He cannot return back to assisted living and will need STR. CTH neg CT A/P- fatty liver, enlarged prostate, cardiomegaly, coronary calcifications Echo- LVH, LVEF nl, impaired LV relaxation mod TSH and NH4- nl narcotics discontinued secondary to confusion ACS ruled out U/A neg for uti covid neg afebrile Alert, awake, not oriented NAD more alert and talkative chest- CTAB P/a soft labs reviewed Patient is an elderly gentleman with multiple comorbidities along with gastric cancer on chemotherapy prognosis guarded pt is full code. I spoke to Pt's brother in law and HCP Javid today We went over Patients dx of cancer and multiple comorbidities and recent physical and cognitive decline. Javid states that he has spoken to pt's oncologist and chemo will be on hold for now. Patient would be going to STR to regain strength. We discussed that given his age and comorbidities and the side effects of the chemo he may not be able to receive chemo again and Javid understands that. I explained that the currently it is important that Mr Art starts feeling better, that we are able to control his stomach pain and nausea so he is eating and taking medications for his other conditions breonna HTN and BPH. Javid was in agreement with that and understood that resuming chemo may or may not be an option down the road depending on how Mr Art does with supportive treatment and rehab. We also discussed DNR, DNI. While Javid said that he wants us to " do whatever we can to keep him going" , Mr Art would not want to have chest compressions/ go on the ventilator. He is in agreement that the goal would be to improve Mr Art quality of life and make him more comfortable. would continue supportive care- dietary consult, nutritional supplements, resuming antihypertensives and BPH meds Agree with holding off on sulfonylureas in this elderly patient with decreased appetite For nausea- consideration should be given constipation/ untreated CHF as possible etiolgies along with chemotherapy induced nausea add a bowel regimen For nausea and decreased appetite we could add marinol 2.5 mg po bid, with compazine prn. cont PPI Patient will need SNF placement for STR on dc. Will follow. Problem List - Problems (1) Altered mental status Code(s): R41.82 - ALTERED MENTAL STATUS, UNSPECIFIED (2) Abdominal pain Code(s): R10.9 - UNSPECIFIED ABDOMINAL PAIN Qualifiers: Abdominal location: generalized Qualified Code(s): R10.84 - Generalized abdominal pain (3) Gastric cancer Code(s): C16.9 - MALIGNANT NEOPLASM OF STOMACH, UNSPECIFIED Qualifiers: Malignant neoplasm of stomach location: unspecified location Qualified Code(s): C16.9 - Malignant neoplasm of stomach, unspecified (4) Lactic acidosis Code(s): E87.2 - ACIDOSIS
--- NOTE | 2019-10-16 10:37 | PN ---
Progress Note, HAM DOCTOR - Note Progress Note: Selected Entries 10/15/19 10/16/19 10/16/19 19:16 01:00 05:00 Supper 0 Temperature 97.8 F Blood Pressure 140/76 144/93 Laboratory Tests 10/16/19 07:10 WBC 6.8 GI Impression: - Given his gastric cancer a UGI will be ordered to see of there is obstruction at the gastric level as the cause of his vomiting. It may alternatively be a side effect of his chemotherapy the names of which the oncology consult will hopefully provide - Personal h/o colon adenoma - Colon diverticulosis and angiodysplasia Plan: -- UGI series -- Await oncology data as I could not contact the oncologist at [facility], Dr Holly -- Clear liquids for now UGI pending results Diet per GI. Pt edentulous
--- NOTE | 2019-10-16 11:59 | PN ---
Physical Exam: SUBJECTIVE: Patient seen and examined. Pt. returned from Upper GI series. Pt. denies any pain anywhere but is still confused. Call placed yesterday and today to Dr. Gutiérrez's office, awaiting callback. Pt. states last BM was on Sunday, per chart Pt. had large BM overnight. OBJECTIVE: Vital Signs Period Temp Pulse Resp BP Sys/Davis Pulse Ox Last 24 Hr 97.5 F-98.3 F 69-95 18-20 131-160/71-103 98-99 GENERAL: Awake, alert, and fully oriented but confused speech HEAD: Normal with no signs of trauma. EYES: Extraocular movements intact, sclera anicteric, conjunctiva clear. EARS, NOSE, THROAT: Ears normal, nares patent, oropharynx clear without exudates. Moist mucous membranes. NECK: Normal range of motion, supple without lymphadenopathy, JVD, or masses. LUNGS: Breath sounds equal, clear to auscultation bilaterally. No wheezes, and no crackles. No accessory muscle use. HEART: Regular rate and rhythm, normal S1 and S2 without murmur ABDOMEN: Soft, nontender, not distended, normoactive bowel sounds, no guarding, no rebound, no masses. No hepatomegaly or splenomegaly. UPPER EXTREMITIES: warm, well-perfused. No cyanosis. No clubbing. No peripheral edema. LOWER EXTREMITIES: 2+ dorsal pedal pulses, warm, well-perfused. No calf tenderness. No peripheral edema. NEUROLOGICAL: Confused repetitive speech PSYCHIATRIC: Cooperative. Good eye contact. Appropriate mood and affect. SKIN: Warm, dry, normal turgor Laboratory Results - last 24 hr 10/14/19 10/15/19 10/16/19 10:00 12:22 07:10 WBC RBC Hgb Hct MCV MCH MCHC RDW Plt Count MPV Sodium 146 H Potassium 3.5 Chloride 111 H Carbon Dioxide 26 Anion Gap 9 BUN 14.9 Creatinine 1.0 Est GFR (CKD-EPI)AfAm 78.64 Est GFR (CKD-EPI)NonAf 67.85 POC Glucometer 113 Random Glucose 105 Calcium 8.3 L Phosphorus 3.0 Magnesium 2.0 TSH 0.04 L D Free T4 1.81 H COVID-19 (JULIA) Not detected 10/16/19 07:10 WBC 6.8 RBC 4.02 Hgb 13.2 Hct 39.5 MCV 98.3 H MCH 32.8 MCHC 33.4 RDW 20.6 H Plt Count 180 MPV 8.3 Sodium Potassium Chloride Carbon Dioxide Anion Gap BUN Creatinine Est GFR (CKD-EPI)AfAm Est GFR (CKD-EPI)NonAf POC Glucometer Random Glucose Calcium Phosphorus Magnesium TSH Free T4 COVID-19 (JULIA) Active Medications Generic Name Dose Route Start Last Admin Trade Name Freq PRN Reason Stop Dose Admin Amlodipine Besylate 5 mg 10/15/19 10:00 10/16/19 10:14 Norvasc - PO 5 mg DAILY STEVE Administration Apixaban 2.5 mg 10/14/19 10:00 10/16/19 10:12 Eliquis - PO 2.5 mg BID STEVE Administration Artificial Tears 1 drop 10/14/19 10:00 10/16/19 10:13 Artificial Tears OU 1 drop QID STEVE Administration Brimonidine Tartrate 1 drop 10/14/19 22:00 10/16/19 06:38 Alphagan 0.2% - OU 1 drop TID STEVE Administration Docusate Sodium 100 mg 10/14/19 10:00 10/16/19 10:12 Colace - PO 100 mg DAILY STEVE Administration Docusate Sodium 200 mg 10/14/19 05:12 Colace - PO HS PRN CONSTIPATION Losartan Potassium 50 mg 10/16/19 10:00 10/16/19 10:14 Cozaar - PO 50 mg DAILY STEVE Administration Metoprolol Succinate 100 mg 10/14/19 10:00 10/16/19 10:12 Toprol Xl - PO 100 mg DAILY STEVE Administration Pantoprazole Sodium 40 mg 10/14/19 14:30 10/16/19 10:15 Protonix Iv IVPUSH 40 mg DAILY STEVE Administration Potassium Chloride 10 meq 10/14/19 10:00 10/16/19 10:14 K-Dur - PO 10 meq DAILY STEVE Administration Sodium Chloride 2 spray 10/16/19 06:02 [place] Nasal [place] - NS TID PRN NASAL CONGESTION Timolol Maleate 1 drop 10/14/19 22:00 10/16/19 06:37 Timoptic 0.5% OU 1 drop TID STEVE Administration Trimethobenzamide HCl 300 mg 10/13/19 23:40 10/16/19 06:40 Tigan - PO 300 mg QID PRN Administration NAUSEA ASSESSMENT/PLAN: Pt. is an 88 y.o. M w/ PMHx. of DM, HTN, GERD, BPH, Hx. of CVA, Afib(on reduced dose Eliquis because of suspected GIB), Dementia and Gastric CA (currently on FOLFOX-last received last week, s/p RT) presents from [facility] for altered mental status. We are called to assess for possible metastases to the brain. #Gastric CA currently on FOLFOX with Altered mental status Head CT negative, f/u MRI Pt. currently has no metabolic derangements that would explain his mental status Discontinue Iron as constipation can be causing some of symptoms. GI consult appreciated, low suspicion that Pt. is having GIB as Hemoglobin is stable Monitor stool off Iron supplements obtain records from [facility] Cannot rule out that this is a progression of his dementia Resume FOLFOX (5-Flurouracil, leucovorin, oxaliplatin) after STR, as per Palliative discussion with family, if Pt. is still a candidate per his oncologist Dr. Gutiérrez. Visit type - Emergency Visit Emergency Visit: Yes ED Registration Date: 10/13/19 Care time: The patient presented to the Emergency Department on the above date and was hospitalized for further evaluation of their emergent condition. - New Patient This patient is new to me today: No - Critical Care Critical Care patient: No - Discharge Referral Referred to [facility] Med P.C.: No - Medication Review Med list reviewed for High Risk Meds patients 65 and older: Yes ATTENDING PHYSICIAN STATEMENT I saw and evaluated the patient. I reviewed the resident's note and discussed the case with the resident. I agree with the resident's findings and plan as documented. SUBJECTIVE: OBJECTIVE: ASSESSMENT AND PLAN:
[2019-10-16] MEDS: FLUTICASONE PROP 0.05% 16 GM NASAL SPRAY NS SCH (13:25)
--- NOTE | 2019-10-16 14:48 | PN ---
Physical Exam: SUBJECTIVE: Patient seen and examined bedside. Patient got very emotional. He denies any pain. No events overnight. OBJECTIVE: Vital Signs Period Temp Pulse Resp BP Sys/Davis Pulse Ox Last 24 Hr 97.5 F-98.3 F 69-95 18-20 130-160/71-103 96-99 GENERAL: The patient is awake, alert, no oriented to place or time. HEAD: Normal with no signs of trauma. EYES: PERRL, sclera anicteric, conjunctiva clear. ENT: dry mucous membranes, improving NECK: Trachea midline, full range of motion, supple. LUNGS: Breath sounds equal, clear to auscultation bilaterally HEART: Irregular rhythm, normal rate ABDOMEN: soft, non tender, non distended EXTREMITIES: , warm, well-perfused, no edema. PSYCH: very emotional, crying Laboratory Results - last 24 hr 10/14/19 10/16/19 10/16/19 10:00 07:10 07:10 WBC 6.8 RBC 4.02 Hgb 13.2 Hct 39.5 MCV 98.3 H MCH 32.8 MCHC 33.4 RDW 20.6 H Plt Count 180 MPV 8.3 Sodium 146 H Potassium 3.5 Chloride 111 H Carbon Dioxide 26 Anion Gap 9 BUN 14.9 Creatinine 1.0 Est GFR (CKD-EPI)AfAm 78.64 Est GFR (CKD-EPI)NonAf 67.85 Random Glucose 105 Calcium 8.3 L Phosphorus 3.0 Magnesium 2.0 TSH 0.04 L D Free T4 1.81 H COVID-19 (UJLIA) Not detected Active Medications Generic Name Dose Route Start Last Admin Trade Name Jeffq PRN Reason Stop Dose Admin Amlodipine Besylate 5 mg 10/15/19 10:10/16/19 10:14 Norvasc - PO 5 mg DAILY STEVE Administration Apixaban 2.5 mg 10/14/19 10:10/16/19 10:12 Eliquis - PO 2.5 mg BID STEVE Administration Artificial Tears 1 drop 10/14/19 10:10/16/19 13:26 Artificial Tears OU 1 drop QID STEVE Administration Brimonidine Tartrate 1 drop 10/14/19 22:00 10/16/19 13:26 Alphagan 0.2% - OU 1 drop TID STEVE Administration Docusate Sodium 100 mg 10/14/19 10:00 10/16/19 10:12 Colace - PO 100 mg DAILY STEVE Administration Docusate Sodium 200 mg 10/14/19 05:12 Colace - PO HS PRN CONSTIPATION Fluticasone Propionate 1 spray 10/16/19 12:15 10/16/19 13:25 Flonase - NS 1 spray DAILY STEVE Administration Losartan Potassium 50 mg 10/16/19 10:00 10/16/19 10:14 Cozaar - PO 50 mg DAILY STEVE Administration Metoprolol Succinate 100 mg 10/14/19 10:00 10/16/19 10:12 Toprol Xl - PO 100 mg DAILY STEVE Administration Mirtazapine 7.5 mg 10/16/19 22:00 Remeron - PO HS STEVE Pantoprazole Sodium 40 mg 10/14/19 14:30 10/16/19 10:15 Protonix Iv IVPUSH 40 mg DAILY STEVE Administration Potassium Chloride 10 meq 10/14/19 10:00 10/16/19 10:14 K-Dur - PO 10 meq DAILY STEVE Administration Sodium Chloride 2 spray 10/16/19 06:02 [place] Nasal [place] - NS TID PRN NASAL CONGESTION Timolol Maleate 1 drop 10/14/19 22:00 10/16/19 13:26 Timoptic 0.5% OU 1 drop TID STEVE Administration Trimethobenzamide HCl 300 mg 10/13/19 23:40 10/16/19 06:40 Tigan - PO 300 mg QID PRN Administration NAUSEA Imaging: GI Series: After administering a barium meal, there was rapid visualization of the e sophagus. There is no evidence of intrinsic or extrinsic esophageal mass lesions or strictures. The stomach is distensible and shows adequate peristalsis with no evidence of gastric masses or ulcer cavities. There is no evidence of outlet obstruction. The duodenal bulb and sweep demonstrated no evidence of acute or chronic peptic ulcer disease. The proximal loops of jejunum visualized and showed no significant abnormalities. IMPRESSION: Limited study with no evidence of gastric masses or outlet obstruction. Please see above discussion. ASSESSMENT/PLAN: 88 y.o. Frisian speaking M PMHx HTN, HLD, DM, CKD, GERD, A-Fib on eliquis, Gastric cancer (restarted chemo last week). Sent from [facility] due to hypertension (136/130), increased confusion, decreased appetite. AMS 2/2 brains mets v. volume depletion v. Covid-19 - Possible brain mets from gastric cancer, MRI ordered - try to reattempt MRI tonight or tomorrow - Oncologist Dr. Gutiérrez: patient restarted FOLFOX treatment last week, can be on hold while patient in the hospital - no records received yet from office - Lily HS starting tonight for sleep and depressed mood Gastric Cancer - possible cause of decreased po intake and nausea - GI consult placed GI series performed today results above - IV protonix - Clear liquids for now Hyperthryoid: Elevated Ft4 & Low TSH - repeat labs today are the same - start methimazole 5 mg daily, patient will have to recheck values in 4-6 weeks and f/o w/endocrine for thyroid US Hx AFIB - continue eliquis - continue metoprolol succinate 100 mg HTN - currently only been taking metoprolol because of nausea - BP remains elevated - staring norvasc 5 mg po daily Tropenemia - trending down Increased Qtc - avoid zofran for nausea Covid r/o - negative FEN - IVF - Ensure supplement - Advance for liquids to soft diet tomorrow see how patient tolerates DVT Prophylaxis - Eloquis 2.5mg PO BID - SCD's B/L Dispo Patient will need SNF placement for STR on discharge Visit type - Emergency Visit Emergency Visit: Yes ED Registration Date: 10/13/19 Care time: The patient presented to the Emergency Department on the above date and was hospitalized for further evaluation of their emergent condition. - New Patient This patient is new to me today: No - Critical Care Critical Care patient: No - Discharge Referral Referred to [facility] Med P.C.: No - Medication Review Med list reviewed for High Risk Meds patients 65 and older: Yes ATTENDING PHYSICIAN STATEMENT I saw and evaluated the patient. I reviewed the resident's note and discussed the case with the resident. I agree with the resident's findings and plan as documented. SUBJECTIVE: OBJECTIVE: ASSESSMENT AND PLAN:
[2019-10-16] MEDS ORDERED: PT OWN MED DRAWER 7, Y5N ONE ×2 (15:22→16:33)
--- NOTE | 2019-10-16 16:28 | PN ---
Teaching Attending Note ATTENDING PHYSICIAN STATEMENT I saw and evaluated the patient. I reviewed the resident's note and discussed the case with the resident. I agree with the resident's findings and plan as documented. SUBJECTIVE: OBJECTIVE: ASSESSMENT AND PLAN:
[2019-10-16] MEDS: SODIUM CHLORIDE 0.45% 1,000 ML IV SCH (16:53)
--- NOTE | 2019-10-16 17:24 | PN ---
Teaching Attending Note Name of Resident: Lia Horton ATTENDING PHYSICIAN STATEMENT I saw and evaluated the patient. I reviewed the resident's note and discussed the case with the resident. I agree with the resident's findings and plan as documented. SUBJECTIVE: confused over night . denies pain . OBJECTIVE: OBJECTIVE: NAd,awake, alert. CV: RRR. Lungs: CTAB Abd: soft, NT, ND Ext: No edema or erythema on upper or lower extremities ASSESSMENT AND PLAN: 88 y/o man with h/o Gastric cancer (chemo started 1 week ago), [place], Afib (on Eliquis), DM, BPH, HTN, HLD, CAD and CVA who presented with rapid decline of mental status and poor po intake 1- AMS/encephalopathy, stable . possible depression. - resume IVF, change to 1/2 NS - add remeron 7.5 HS - will try one more time to perform MRI 2- Hyperthyroidism: confirmed on repeat labs - start low dose methemazole . - need thyroid US as out pt, abs, and possible thyroid scan . - f/u with endocrine - repeat TFTs in 6-8 weeks 3- H/o Gastric cancer . on active chemo which is being on hold . 4- N/V /po intake/abd pain. - UGI series with no obstruction - PPI - advance diet to ful liquids, and if tolerated will advance to soft in am - team will d/w GI the next step .? EGD 5- H/o A fib: cont toprol and Eliquis 7- HTN urgency: resolved - cont toprol - cont norvasc - cont low dose losartan 50 mg 8- Prostate enlargement on CT. not changed. f/u as out pt. dispo : HLOC patient is full code and will cont with all aggressive measures
[2019-10-16] MEDS: METHIMAZOLE 5 MG TABLET (FP) PO SCH (17:42)
[2019-10-16] MEDS ORDERED: SODIUM CHLORIDE 1,000 ML IV SCH (18:15)
[2019-10-16] MEDS: LACTATED RINGERS SOLUTION 1,000 ML/1,000 ML INFUS.BAG IV SCH (20:34)
[2019-10-16] MEDS ORDERED: LORazepam 2 MG/ML SDV VIAL IVPUSH ONE (20:45)
[2019-10-16] MEDS ORDERED: MIRTAZAPINE 15 MG TABLET (FP) PO SCH (22:00)
[2019-10-17] MEDS: TIMOLOL 0.5% OPHTHALMIC SOL 5 ML BOTTLE OU SCH ×3 (05:27→21:29)
[2019-10-17] MEDS: BRIMONIDINE TARTRATE 0.2% OPHTHALMIC 5 ML BOTTLE OU SCH ×3 (05:27→21:29)
[2019-10-17 07:04] LABS: HEMATOCRIT 40.5 % (35.4-49); HEMOGLOBIN 13.5 GM/dL (11.7-16.9); MCH 32.8 pg (25.7-33.7); MCHC 33.4 g/dl (32.0-35.9); MEAN CELL VOLUME 98.3 fl (80-96); MEAN PLT VOLUME 8.5 fl (7.5-11.1); PLATELET COUNT 180 K/MM3 (134-434); RBC 4.12 M/mm3 (4.00-5.60); RDW 20.1 % (11.9-15.9); WHITE BLOOD COUNT 6.9 K/mm3 (4.0-10.0)
[2019-10-17 07:30] LABS: BLOOD UREA NITROGEN 12.4 mg/dL (7-18); CALCIUM 8.5 mg/dL (8.5-10.1)
[2019-10-17 07:32] LABS: CREATININE 1.1 mg/dL (0.55-1.3); MAGNESIUM 1.9 mg/dL (1.8-2.4); PHOSPHOROUS 2.4 mg/dL (2.5-4.9)
[2019-10-17 07:55] LABS: POTASSIUM 2.8 mmol/L (3.5-5.1)
[2019-10-17] MEDS ORDERED: KCL 10 MEQ IVPB 10 MEQ/100 ML INFUS.BAG IVPB SCH (08:15)
[2019-10-17] MEDS ORDERED: NAPH,MB-DB/K PH,MBDB POWDER PACKET PO ONE (08:33)
[2019-10-17] MEDS: KCL 10 MEQ IVPB 10 MEQ/100 ML INFUS.BAG IVPB SCH ×4 (08:50→20:01)
[2019-10-17] MEDS: ARTIFICIAL TEARS (POLYVINYL ALCOHOL) OPTH DROPS OU SCH ×4 (10:16→21:29)
[2019-10-17] MEDS ORDERED: PT OWN MED DRAWER 7, Y5N ONE ×2 (10:35→10:52)
[2019-10-17] MEDS: LOSARTAN POTASSIUM 50 MG TABLET (FP) PO SCH (11:16)
[2019-10-17] MEDS: DOCUSATE SODIUM 100 MG CAPSULE (FP) PO SCH (11:16)
[2019-10-17] MEDS: FLUTICASONE PROP 0.05% 16 GM NASAL SPRAY NS SCH (11:17)
[2019-10-17] MEDS: POTASSIUM CHLORIDE TABS 10 MEQ TABLET.ER (FP) PO SCH (11:17)
[2019-10-17] MEDS: METHIMAZOLE 5 MG TABLET (FP) PO SCH (11:17)
[2019-10-17] MEDS: amLODIPine BESYLATE 5 MG TABLET (FP) PO SCH (11:17)
[2019-10-17] MEDS: PANTOPRAZOLE SODIUM 40 MG VIAL IVPUSH SCH (11:17)
[2019-10-17] MEDS: APIXABAN 2.5 MG TABLET PO SCH ×3 (11:17→22:55)
--- NOTE | 2019-10-17 12:01 | PN ---
Progress Note, SCRIPT MANAGER - Note Progress Note: UGI unremarkable Pt on full fluids Remeron ordered. Selected Entries 10/16/19 10/16/19 10/17/19 14:00 18:00 01:59 Breakfast Lunch 25% Supper 50% Temperature 97 F L Blood Pressure 134/88 10/17/19 10/17/19 10/17/19 05:31 09:00 11:56 Breakfast 0 Lunch Supper Temperature 98.0 F 98.1 F Blood Pressure 133/97 147/91 Laboratory Tests 10/17/19 06:15 WBC 6.9
--- NOTE | 2019-10-17 13:02 | PN.GI ---
GI Progress Note Subjective: GI NOte: UGI series reveals no evidence of residual tumor or obstruction. Will advance diet. He is groggy and awaiting a MRI of the brain K is 2.8 - Objective Vital Signs: Vital Signs Temperature 98.1 F 10/17/19 09:00 Pulse Rate 75 10/17/19 09:00 Respiratory Rate 18 10/17/19 09:00 Blood Pressure 147/91 10/17/19 09:00 O2 Sat by Pulse Oximetry (%) 94 L 10/17/19 09:00 Laboratory Tests 10/17/19 06:15 Potassium 2.8 L* Constitutional: Other (Lethargic but arousable) ...Auscultate: Yes: Hypoactive Bowel Sounds ...Palpate: Yes: Soft, Other (nontender) Labs: CBC, BMP 10/17/19 06:15 10/17/19 06:15 INR, PTT INR 1.39 (0.83-1.09) H 10/13/19 13:15 Assessment/Plan Impression: - No residual of his gastric cancer on UGI. The vomiting could be a side effect of his chemotherapy or perhaps brain mets given his mental status - Personal h/o colon adenoma - Colon diverticulosis and angiodysplasia Plan: -- Dysphagia diet -- Await brain MRI Problem List - Problems (1) Gastric cancer Code(s): C16.9 - MALIGNANT NEOPLASM OF STOMACH, UNSPECIFIED Qualifiers: Malignant neoplasm of stomach location: unspecified location Qualified Code(s): C16.9 - Malignant neoplasm of stomach, unspecified (2) Vomiting Code(s): R11.10 - VOMITING, UNSPECIFIED (3) Diabetes mellitus Code(s): E11.9 - TYPE 2 DIABETES MELLITUS WITHOUT COMPLICATIONS (4) Arteriosclerotic heart disease (ASHD) Code(s): I25.10 - ATHSCL HEART DISEASE OF [place] CORONARY ARTERY W/O ANG PCTRS (5) History of CT (myocardial infarction) Code(s): I25.2 - OLD MYOCARDIAL INFARCTION (6) Atrial fibrillation Code(s): I48.91 - UNSPECIFIED ATRIAL FIBRILLATION (7) Hypertension Code(s): I10 - ESSENTIAL (PRIMARY) HYPERTENSION (8) Hyperlipidemia Code(s): E78.5 - HYPERLIPIDEMIA, UNSPECIFIED (9) Glaucoma Code(s): H40.9 - UNSPECIFIED GLAUCOMA (10) Altered mental status Code(s): R41.82 - ALTERED MENTAL STATUS, UNSPECIFIED (11) Colon adenoma Code(s): D12.6 - BENIGN NEOPLASM OF COLON, UNSPECIFIED (12) Angiodysplasia of colon Code(s): K55.20 - ANGIODYSPLASIA OF COLON WITHOUT HEMORRHAGE (13) Diverticulosis Code(s): K57.90 - DVRTCLOS OF INTEST, PART UNSP, W/O PERF OR ABSCESS W/O BLEED
--- NOTE | 2019-10-17 13:04 | PN ---
Progress Note (short form) - Note Progress Note: Palliative care f/up 88 y.o. Japanese speaking M PMHx HTN, HLD, DM, CKD, GERD, BPH, CAD, CVA, glaucoma,A-Fib on eliquis, Gastric cancer (oxaliplatin, leucovorin, 5-FU)- recently treated for uti with doxycycline. He is a resident of [facility] and was admitted to [facility] 10/12 with uncontrolled hypertension (136/130) and increased confusion over the past few days. The staff stated he has been having difficulty urinating, decreased appetite and has had his medications (mirtazapine, furosemide, finasteride, flomax, losartan, atorvastatin, amlodipine, iron) on hold for 19 days due to stomach pain. In the ED patient stated he has been having dizziness, nausea and is very thirsty. Denied headache, chills, sob, chest pain, vomiting, diarrhea, dysuria, hematuria. Patient knew his name, date, and location although he though he was in the OR and would frequently repeat himself/not answer questions. He was previously on ensure per dietary. He sees his oncologist Dr. Gutiérrez at [facility]. He has no recent travel, lives at [facility] and has had no recent sick contacts. Patient has become weaker and sicker since he started chemotherapy, has not been ambulatory and has been requiring more assistance. He cannot return back to assisted living and will need STR. CTH neg CT A/P- fatty liver, enlarged prostate, cardiomegaly, coronary calcifications Echo- LVH, LVEF nl, impaired LV relaxation mod TSH and NH4- nl narcotics discontinued secondary to confusion ACS ruled out U/A neg for uti covid neg afebrile Alert, awake, not oriented NAD more alert and talkative chest- CTAB P/a soft labs reviewed Patient is an elderly gentleman with multiple comorbidities along with gastric cancer on chemotherapy prognosis guarded pt is full code. I spoke to Pt's brother in law and HCP Javid - We went over Patients dx of cancer and multiple comorbidities and recent physical and cognitive decline. Javid has spoken to pt's oncologist and chemo will be on hold for now. Patient would be going to STR to regain strength. We discussed that given his age and comorbidities and the side effects of the chemo he may not be able to receive chemo again and Javid understands that. I explained that the currently it is important that Mr Art starts feeling better, that we are able to control his stomach pain and nausea so he is eating and taking medications for his other conditions breonna HTN and BPH. Javid was in agreement with that and understood that resuming chemo may or may not be an option down the road depending on how Mr Art does with supportive treatment and rehab. We also discussed DNR, DNI. While Javid said that he wants us to " do whatever we can to keep him going" , Mr Art would not want to have chest compressions/ go on the ventilator. MOLST form was signed today. He is in agreement that the goal would be to improve Mr Art quality of life and make him more comfortable. would continue supportive care- dietary consult, nutritional supplements, resuming antihypertensives and BPH meds Agree with holding off on sulfonylureas in this elderly patient with decreased appetite For nausea- consideration should be given constipation/ untreated CHF as possible etiolgies along with chemotherapy induced nausea add a bowel regimen For nausea and decreased appetite we could add marinol 2.5 mg po bid, with compazine prn. cont PPI Patient will need SNF placement for STR on dc. Will follow. Problem List - Problems (1) Altered mental status Code(s): R41.82 - ALTERED MENTAL STATUS, UNSPECIFIED (2) Abdominal pain Code(s): R10.9 - UNSPECIFIED ABDOMINAL PAIN Qualifiers: Abdominal location: generalized Qualified Code(s): R10.84 - Generalized abdominal pain (3) Gastric cancer Code(s): C16.9 - MALIGNANT NEOPLASM OF STOMACH, UNSPECIFIED Qualifiers: Malignant neoplasm of stomach location: unspecified location Qualified Code(s): C16.9 - Malignant neoplasm of stomach, unspecified (4) Lactic acidosis Code(s): E87.2 - ACIDOSIS
[2019-10-17 15:32] LABS: BLOOD UREA NITROGEN 10.2 mg/dL (7-18); CALCIUM 8.1 mg/dL (8.5-10.1); POTASSIUM 3.3 mmol/L (3.5-5.1)
[2019-10-17] MEDS ORDERED: POTASSIUM CHLORIDE TABS 20 MEQ TABLET.ER (FP) PO ONE ×2 (15:55)
--- NOTE | 2019-10-17 18:03 | PN ---
Physical Exam: SUBJECTIVE: Patient seen and examined beside. Currently on restraints. Very upset complaining he hasn't slept. Nurse tried to prepare patient for MRI last night and the patient accused him of trying to steal his watch and got very agitated. Ativan 0.5 was given for MRI with no effect. OBJECTIVE: Vital Signs Period Temp Pulse Resp BP Sys/Davis Pulse Ox Last 24 Hr 97 F-98.8 F 75-98 18-20 117-147/78-97 94-98 GENERAL: The patient is awake, alert, very upset, HEAD: Normal with no signs of trauma. EYES: PERRL, sclera anicteric, conjunctiva clear. NECK: Trachea midline, full range of motion, supple. LUNGS: Breath sounds equal, clear to auscultation bilaterally HEART: Irregular rhythm, normal rate ABDOMEN: soft, non tender, non distended EXTREMITIES: , warm, well-perfused, no edema. PSYCH: very upset and tired Laboratory Results - last 24 hr 10/16/19 10/17/19 10/17/19 22:04 06:04 06:15 WBC 6.9 RBC 4.12 Hgb 13.5 Hct 40.5 MCV 98.3 H MCH 32.8 MCHC 33.4 RDW 20.1 H Plt Count 180 MPV 8.5 Sodium Potassium Chloride Carbon Dioxide Anion Gap BUN Creatinine Est GFR (CKD-EPI)AfAm Est GFR (CKD-EPI)NonAf POC Glucometer 125 84 Random Glucose Calcium Phosphorus Magnesium 10/17/19 10/17/19 10/17/19 06:15 11:50 14:40 WBC RBC Hgb Hct MCV MCH MCHC RDW Plt Count MPV Sodium 143 141 Potassium 2.8 L* 3.3 L Chloride 105 107 Carbon Dioxide 28 24 Anion Gap 10 10 BUN 12.4 10.2 Creatinine 1.1 1.0 Est GFR (CKD-EPI)AfAm 70.08 78.64 Est GFR (CKD-EPI)NonAf 60.46 67.85 POC Glucometer 118 Random Glucose 89 134 H Calcium 8.5 8.1 L Phosphorus 2.4 L Magnesium 1.9 Active Medications Generic Name Dose Route Start Last Admin Trade Name Freq PRN Reason Stop Dose Admin Amlodipine Besylate 5 mg 10/15/19 10:00 10/17/19 11:17 Norvasc - PO 5 mg DAILY STEVE Administration Apixaban 2.5 mg 10/14/19 10:00 10/17/19 11:17 Eliquis - PO 2.5 mg BID STEVE Administration Artificial Tears 1 drop 10/14/19 10:00 10/17/19 14:22 Artificial Tears OU 1 drop QID STEVE Administration Brimonidine Tartrate 1 drop 10/14/19 22:00 10/17/19 14:22 Alphagan 0.2% - OU 1 drop TID STEVE Administration Docusate Sodium 100 mg 10/14/19 10:00 10/17/19 11:16 Colace - PO 100 mg DAILY STEVE Administration Docusate Sodium 200 mg 10/14/19 05:12 Colace - PO HS PRN CONSTIPATION Fluticasone Propionate 1 spray 10/16/19 12:15 10/17/19 11:17 Flonase - NS 1 spray DAILY STEVE Administration Sodium Chloride 1,000 mls @ 75 mls/hr 10/16/19 16:30 10/16/19 16:53 1/2 Normal Saline IV 75 mls/hr ASDIR STEVE Administration Losartan Potassium 50 mg 10/16/19 10:00 10/17/19 11:16 Cozaar - PO 50 mg DAILY STEVE Administration Methimazole 5 mg 10/16/19 15:15 10/17/19 11:17 Tapazole - PO 5 mg DAILY STEVE Administration Metoprolol Succinate 100 mg 10/14/19 10:00 10/17/19 11:17 Toprol Xl - PO 100 mg DAILY STEVE Administration Mirtazapine 15 mg 10/17/19 12:35 Remeron - PO HS STEVE Pantoprazole Sodium 40 mg 10/14/19 14:30 10/17/19 11:17 Protonix Iv IVPUSH 40 mg DAILY STEVE Administration Potassium Chloride 10 meq 10/14/19 10:00 10/17/19 11:17 K-Dur - PO 10 meq DAILY STEVE Administration Sodium Chloride 2 spray 10/16/19 06:02 Ten Sleep [place] Nasal [place] - NS TID PRN NASAL CONGESTION Timolol Maleate 1 drop 10/14/19 22:00 10/17/19 14:22 Timoptic 0.5% OU 1 drop TID STEVE Administration Trimethobenzamide HCl 300 mg 10/13/19 23:40 10/16/19 06:40 Tigan - PO 300 mg QID PRN Administration NAUSEA ASSESSMENT/PLAN: 88 y.o. [place] speaking M PMHx HTN, HLD, DM, CKD, GERD, A-Fib on eliquis, Gastric cancer (restarted chemo last week). Sent from [facility] due to hypertension (136/130), increased confusion, decreased appetite. AMS 2/2 brains mets v. volume depletion v. 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 Bailon) UGI series reveals no evidence of residual tumor or obstruction. Will advance diet. - IV protonix Hyperthryoid: Elevated Ft4 & Low TSH - methimazole 5 mg daily Hx AFIB - continue eliquis - continue metoprolol succinate 100 mg HTN - currently only been taking metoprolol because of nausea - BP remains elevated - staring norvasc 5 mg po daily Tropenemia - trending down Increased Qtc - avoid zofran for nausea Covid r/o - negative FEN - IVF - Ensure supplement - Advance for liquids to soft diet tomorrow see how patient tolerates DVT Prophylaxis - Eloquis 2.5 mg PO BID - SCD's B/L Dispo Patient going to [facility] tomorrow Please avoid restraints if possible Visit type - Emergency Visit Emergency Visit: Yes ED Registration Date: 10/13/19 Care time: The patient presented to the Emergency Department on the above date and was hospitalized for further evaluation of their emergent condition. - New Patient This patient is new to me today: No - Critical Care Critical Care patient: No - Discharge Referral Referred to [facility] Med P.C.: No - Medication Review Med list reviewed for High Risk Meds patients 65 and older: Yes ATTENDING PHYSICIAN STATEMENT I saw and evaluated the patient. I reviewed the resident's note and discussed the case with the resident. I agree with the resident's findings and plan as documented. SUBJECTIVE: OBJECTIVE: ASSESSMENT AND PLAN:
[2019-10-17] MEDS ORDERED: LORazepam 2 MG/ML SDV VIAL IVPUSH ONE ×2 (18:13→18:30)
--- NOTE | 2019-10-17 18:18 | PN ---
Teaching Attending Note Name of Resident: Lia Horton ATTENDING PHYSICIAN STATEMENT I saw and evaluated the patient. I reviewed the resident's note and discussed the case with the resident. I agree with the resident's findings and plan as documented. SUBJECTIVE: no events over night . no N/V . No pain . unable toobtain much hx OBJECTIVE: OBJECTIVE: NAD,awake, alert. CV: RRR. Lungs: CTAB Abd: soft, NT, ND Ext: No edema or erythema on upper or lower extremities ASSESSMENT AND PLAN: 88 y/o man with h/o Gastric cancer (chemo started 1 week ago), [place], Afib (on Eliquis), DM, BPH, HTN, HLD, CAD and CVA who presented with rapid decline of mental status and poor po intake 1- AMS/encephalopathy, stable . possible depression. - cont IVF - increase remeron to 15 which was supposed to be his home dose - MRI was not tolerated even with 0.5 mgof ativan. will try 1 mg 2- Hyperthyroidism: confirmed on repeat labs - cont low dose methemazole . - need thyroid US as out pt, abs, and possible thyroid scan . - f/u with endocrine - repeat TFTs in 6-8 weeks 3- H/o Gastric cancer . on active chemo which is being on hold . 4- N/V /po intake/abd pain. - UGI series with no obstruction - PPI - advance diet - MRI pending - replete hypokalemia with po and IV kcl 5- H/o A fib: cont toprol and Eliquis 7- HTN urgency: resolved - cont toprol - cont norvasc - cont low dose losartan 50 mg 8- Prostate enlargement on CT. not changed. f/u as out pt.
[2019-10-17] MEDS: SODIUM CHLORIDE 0.45% 1,000 ML IV SCH (20:03)
[2019-10-17] MEDS: MIRTAZAPINE 15 MG TABLET (FP) PO SCH ×2 (21:28→22:55)
[2019-10-17] MEDS ORDERED: MELATONIN 5 MG TABLETS PO ONE (22:17)
[2019-10-18] MEDS: BRIMONIDINE TARTRATE 0.2% OPHTHALMIC 5 ML BOTTLE OU SCH ×3 (05:50→21:03)
[2019-10-18] MEDS: TIMOLOL 0.5% OPHTHALMIC SOL 5 ML BOTTLE OU SCH ×3 (05:51→21:03)
[2019-10-18 06:39] LABS: HEMATOCRIT 40.6 % (35.4-49); HEMOGLOBIN 13.6 GM/dL (11.7-16.9); MCHC 33.5 g/dl (32.0-35.9); MEAN CELL VOLUME 98.7 fl (80-96); MEAN PLT VOLUME 8.3 fl (7.5-11.1); PLATELET COUNT 164 K/MM3 (134-434); RBC 4.11 M/mm3 (4.00-5.60); RDW 20.2 % (11.9-15.9); WHITE BLOOD COUNT 6.8 K/mm3 (4.0-10.0)
[2019-10-18 07:09] LABS: BLOOD UREA NITROGEN 8.8 mg/dL (7-18); CALCIUM 8.5 mg/dL (8.5-10.1); CREATININE 1.1 mg/dL (0.55-1.3); MAGNESIUM 1.9 mg/dL (1.8-2.4); PHOSPHOROUS 2.9 mg/dL (2.5-4.9); POTASSIUM 3.4 mmol/L (3.5-5.1)
[2019-10-18] MEDS: KCL 10 MEQ IVPB 10 MEQ/100 ML INFUS.BAG IVPB SCH ×2 (09:00→10:00)
--- NOTE | 2019-10-18 11:10 | PN ---
Physical Exam: SUBJECTIVE: Patient seen and examined at bedside. Restless overnight-terrell applied by night team. OBJECTIVE: Vital Signs Period Temp Pulse Resp BP Sys/Davis Pulse Ox Last 24 Hr 97.7 F-98.8 F 70-99 18-20 117-153/77-96 96-98 GENERAL: No acute distress appreciated HEAD: Normal with no signs of trauma. EYES: EOMI Sclera Clear. LUNGS: Clear Bilaterally . HEART: Irregularly irregular S1S2 ABDOMEN: Soft nondistended EXTREMITIES: No CCE Laboratory Results - last 24 hr 10/16/19 10/17/19 10/17/19 07:10 11:50 14:40 WBC RBC Hgb Hct MCV MCH MCHC RDW Plt Count MPV Sodium 141 Potassium 3.3 L Chloride 107 Carbon Dioxide 24 Anion Gap 10 BUN 10.2 Creatinine 1.0 Est GFR (CKD-EPI)AfAm 78.64 Est GFR (CKD-EPI)NonAf 67.85 POC Glucometer 118 Random Glucose 134 H Calcium 8.1 L Phosphorus Magnesium C-Reactive Protein Free T3 1.8 L 10/18/19 10/18/19 10/18/19 05:55 05:56 05:56 WBC 6.8 RBC 4.11 Hgb 13.6 Hct 40.6 MCV 98.7 H MCH 33.0 MCHC 33.5 RDW 20.2 H Plt Count 164 MPV 8.3 Sodium 142 Potassium 3.4 L Chloride 107 Carbon Dioxide 26 Anion Gap 9 BUN 8.8 Creatinine 1.1 Est GFR (CKD-EPI)AfAm 70.08 Est GFR (CKD-EPI)NonAf 60.46 POC Glucometer 89 Random Glucose 91 Calcium 8.5 Phosphorus 2.9 Magnesium 1.9 C-Reactive Protein 1.7 H Free T3 Active Medications Generic Name Dose Route Start Last Admin Trade Name Freq PRN Reason Stop Dose Admin Amlodipine Besylate 5 mg 10/15/19 10:00 10/17/19 11:17 Norvasc - PO 5 mg DAILY STEVE Administration Apixaban 2.5 mg 10/14/19 10:00 10/17/19 22:55 Eliquis - PO 2.5 mg BID STEVE Administration Artificial Tears 1 drop 10/14/19 10:00 10/17/19 21:29 Artificial Tears OU 1 drop QID SETVE Administration Brimonidine Tartrate 1 drop 10/14/19 22:00 10/18/19 05:50 Alphagan 0.2% - OU 1 drop TID STEVE Administration Docusate Sodium 100 mg 10/14/19 10:00 10/17/19 11:16 Colace - PO 100 mg DAILY STEVE Administration Docusate Sodium 200 mg 10/14/19 05:12 Colace - PO HS PRN CONSTIPATION Fluticasone Propionate 1 spray 10/16/19 12:15 10/17/19 11:17 Flonase - NS 1 spray DAILY STEVE Administration Sodium Chloride 1,000 mls @ 75 mls/hr 10/16/19 16:30 10/17/19 20:03 1/2 Normal Saline IV Not Given ASDIR STEVE Lorazepam 1 mg 10/17/19 18:30 Ativan Injection - IVPUSH 10/17/19 18:31 ONCE ONE Losartan Potassium 50 mg 10/16/19 10:00 10/17/19 11:16 Cozaar - PO 50 mg DAILY STEVE Administration Methimazole 5 mg 10/16/19 15:15 10/17/19 11:17 Tapazole - PO 5 mg DAILY STEVE Administration Metoprolol Succinate 100 mg 10/14/19 10:00 10/17/19 11:17 Toprol Xl - PO 100 mg DAILY STEVE Administration Mirtazapine 15 mg 10/17/19 12:35 10/17/19 22:55 Remeron - PO 15 mg HS STEVE Administration Pantoprazole Sodium 40 mg 10/14/19 14:30 10/17/19 11:17 Protonix Iv IVPUSH 40 mg DAILY STEVE Administration Potassium Chloride 10 meq 10/14/19 10:00 10/17/19 11:17 K-Dur - PO 10 meq DAILY STEVE Administration Sodium Chloride 2 spray 10/16/19 06:02 [place] Nasal [place] - NS TID PRN NASAL CONGESTION Timolol Maleate 1 drop 10/14/19 22:00 10/18/19 05:51 Timoptic 0.5% OU 1 drop TID STEVE Administration Trimethobenzamide HCl 300 mg 10/13/19 23:40 10/16/19 06:40 Tigan - PO 300 mg QID PRN Administration NAUSEA ASSESSMENT/PLAN: Pt. is an 88 y.o. M w/ PMHx. of DM, HTN, GERD, BPH, Hx. of CVA, Afib(on reduced dose Eliquis because of suspected GIB), Dementia and Gastric CA (currently on FOLFOX-last received last week, s/p RT) presents from [facility] for altered mental status. # AMS possibly 2/2 brain mets/Volume depletion - cont IVF - increase remeron to 15 mg hS - MRI Brain was not tolerated even with 0.5 mg of ativan. Will try again for MRI with 1 mg Ativan. # Hyperthyroidism: - cont low dose methemazole . - need thyroid US as out pt, abs, and possible thyroid scan . - f/u with endocrine - repeat TFTs in 6-8 weeks # H/o Gastric cancer . -on active chemo which is being on hold . -GI consulted (Dr. Bailon) UGI series reveals no evidence of residual tumor or obstruction. Will advance diet. - IV protonix #A fib: cont toprol and Eliquis # HTN - cont toprol - cont norvasc - cont low dose losartan 50 mg # BPH w/ urinary retention -Patient with LUTS. Median Lobe Hypertrophy on CT as well as bladder stone. -Resume Flomax 0.4 -Patient will likely benefit from Prostate Vaporization. Urology consulted. DVT ppx - Eliquis 2.5 mg PO BID - SCD's B/L Dispo Tele Visit type - Emergency Visit Emergency Visit: Yes ED Registration Date: 10/13/19 Care time: The patient presented to the Emergency Department on the above date and was hospitalized for further evaluation of their emergent condition. - New Patient This patient is new to me today: No - Critical Care Critical Care patient: No - Discharge Referral Referred to [facility] Med P.C.: No - Medication Review Med list reviewed for High Risk Meds patients 65 and older: Yes ATTENDING PHYSICIAN STATEMENT I saw and evaluated the patient. I reviewed the resident's note and discussed the case with the resident. I agree with the resident's findings and plan as documented. SUBJECTIVE: OBJECTIVE: ASSESSMENT AND PLAN:
[2019-10-18] MEDS: amLODIPine BESYLATE 5 MG TABLET (FP) PO SCH (11:43)
[2019-10-18] MEDS: DOCUSATE SODIUM 100 MG CAPSULE (FP) PO SCH (11:44)
[2019-10-18] MEDS: APIXABAN 2.5 MG TABLET PO SCH ×2 (11:44→21:02)
[2019-10-18] MEDS: LOSARTAN POTASSIUM 50 MG TABLET (FP) PO SCH (11:44)
[2019-10-18] MEDS: ARTIFICIAL TEARS (POLYVINYL ALCOHOL) OPTH DROPS OU SCH ×4 (11:47→21:03)
[2019-10-18] MEDS: POTASSIUM CHLORIDE TABS 10 MEQ TABLET.ER (FP) PO SCH (11:47)
[2019-10-18] MEDS: FLUTICASONE PROP 0.05% 16 GM NASAL SPRAY NS SCH (11:47)
[2019-10-18] MEDS: METHIMAZOLE 5 MG TABLET (FP) PO SCH (14:52)
[2019-10-18] MEDS: SODIUM CHLORIDE 0.45% 1,000 ML IV SCH (16:56)
[2019-10-18] MEDS ORDERED: POTASSIUM CHLORIDE ORAL LIQUID 20 MEQ/15 ML PO ONE (17:40)
--- NOTE | 2019-10-18 18:23 | PN ---
Teaching Attending Note Name of Resident: Demian Wooten ATTENDING PHYSICIAN STATEMENT I saw and evaluated the patient. I reviewed the resident's note and discussed the case with the resident. I agree with the resident's findings and plan as documented. SUBJECTIVE: no fever or chill. no pain . terrell was placed last night : OBJECTIVE: NAD,awake, alert. CV: RRR. Lungs: CTAB Abd: soft, NT, ND Ext: No edema or erythema on upper or lower extremities ASSESSMENT AND PLAN: 88 y/o man with h/o Gastric cancer (chemo started 1 week ago), [place], Afib (on Eliquis), DM, BPH, HTN, HLD, CAD and CVA who presented with rapid decline of mental status and poor po intake 1- AMS/encephalopathy, stable. possible depression/delirium - cont IVF . dc in am - cont remeron - MRI is still pending. 2- Hyperthyroidism: confirmed on repeat labs - cont low dose methemazole . - need thyroid US as out pt, abs, and possible thyroid scan . - f/u with endocrine - repeat TFTs in 6-8 weeks 3- H/o Gastric cancer . on active chemo which is being on hold . 4- N/V /po intake/abd pain. - UGI series with no obstruction - PPI - cont puree diet - MRI pending - replete hypokalemia today again. increase standing daily dose. 5- H/o A fib: cont toprol and Eliquis 7- HTN urgency: resolved - cont toprol - cont norvasc - cont low dose losartan 50 mg 8- Prostate enlargement on CT. not changed. f/u as out pt. needs rehab at pr . if MRI is done and rehab bed available can pr
[2019-10-18] MEDS: MIRTAZAPINE 15 MG TABLET (FP) PO SCH (21:02)
[2019-10-19] MEDS: BRIMONIDINE TARTRATE 0.2% OPHTHALMIC 5 ML BOTTLE OU SCH ×3 (06:00→21:29)
[2019-10-19] MEDS: TIMOLOL 0.5% OPHTHALMIC SOL 5 ML BOTTLE OU SCH ×3 (06:00→21:22)
[2019-10-19] MEDS: TAMSULOSIN HCL 0.4 MG CAP PO SCH (09:21)
[2019-10-19] MEDS: APIXABAN 2.5 MG TABLET PO SCH ×2 (09:22→21:21)
[2019-10-19] MEDS: POTASSIUM CHLORIDE TABS 10 MEQ TABLET.ER (FP) PO SCH (09:22)
[2019-10-19] MEDS: LOSARTAN POTASSIUM 50 MG TABLET (FP) PO SCH (09:22)
[2019-10-19] MEDS: FLUTICASONE PROP 0.05% 16 GM NASAL SPRAY NS SCH (09:22)
[2019-10-19] MEDS: DOCUSATE SODIUM 100 MG CAPSULE (FP) PO SCH (09:22)
[2019-10-19] MEDS: amLODIPine BESYLATE 5 MG TABLET (FP) PO SCH (09:22)
[2019-10-19] MEDS: PANTOPRAZOLE 40 MG TABLET PO SCH (09:22)
[2019-10-19] MEDS: ARTIFICIAL TEARS (POLYVINYL ALCOHOL) OPTH DROPS OU SCH ×4 (09:23→21:22)
[2019-10-19] MEDS: METHIMAZOLE 5 MG TABLET (FP) PO SCH (09:23)
[2019-10-19 09:50] LABS: HEMATOCRIT 40.1 % (35.4-49); HEMOGLOBIN 13.3 GM/dL (11.7-16.9); MCH 33.1 pg (25.7-33.7); MCHC 33.2 g/dl (32.0-35.9); MEAN CELL VOLUME 99.6 fl (80-96); MEAN PLT VOLUME 8.7 fl (7.5-11.1); PLATELET COUNT 191 K/MM3 (134-434); RBC 4.03 M/mm3 (4.00-5.60); WHITE BLOOD COUNT 6.8 K/mm3 (4.0-10.0)
[2019-10-19 10:12] LABS: BLOOD UREA NITROGEN 10.2 mg/dL (7-18); CALCIUM 8.5 mg/dL (8.5-10.1); CREATININE 1.2 mg/dL (0.55-1.3); PHOSPHOROUS 3.3 mg/dL (2.5-4.9); POTASSIUM 3.7 mmol/L (3.5-5.1)
--- NOTE | 2019-10-19 15:06 | PN ---
Progress Note (short form) - Note Progress Note: Subjective: he speaks good Khmer today. no pain or SOB . he feels much better Objective: Vital Signs: Last Vital Signs Temp Pulse Resp BP Pulse Ox 97.6 F 71 16 99/55 L 98 10/19/19 14:30 10/19/19 14:41 10/19/19 14:41 10/19/19 14:41 10/19/19 14:41 Laboratory Results - last 24 hr 10/18/19 10/19/19 10/19/19 21:01 06:03 09:25 WBC 6.8 RBC 4.03 Hgb 13.3 Hct 40.1 MCV 99.6 H MCH 33.1 MCHC 33.2 RDW 20.0 H Plt Count 191 MPV 8.7 Sodium Potassium Chloride Carbon Dioxide Anion Gap BUN Creatinine Est GFR (CKD-EPI)AfAm Est GFR (CKD-EPI)NonAf POC Glucometer 131 95 Random Glucose Calcium Phosphorus Magnesium 10/19/19 10/19/19 09:25 11:11 WBC RBC Hgb Hct MCV MCH MCHC RDW Plt Count MPV Sodium 144 Potassium 3.7 Chloride 109 H Carbon Dioxide 25 Anion Gap 9 BUN 10.2 Creatinine 1.2 Est GFR (CKD-EPI)AfAm 63.08 Est GFR (CKD-EPI)NonAf 54.43 POC Glucometer 162 Random Glucose 112 H Calcium 8.5 Phosphorus 3.3 Magnesium 2.0 OBJECTIVE: NAD,awake, alert. very calm and cooperative today . looks happy and comfortable. knows his name, and he is in hospital, not age CV: RRR. Lungs: CTAB Abd: soft, NT, ND Ext: No edema or erythema on upper or lower extremities ASSESSMENT AND PLAN: 88 y/o man with h/o Gastric cancer (chemo started 1 week ago), [place], Afib (on Eliquis), DM, BPH, HTN, HLD, CAD and CVA who presented with rapid decline of mental status and poor po intake 1- AMS/encephalopathy, stable. possible depression/delirium , resolving - cont remeron - MRI with no acute events 2- Hyperthyroidism: confirmed on repeat labs - cont low dose methemazole . - need thyroid US as out pt, abs, and possible thyroid scan . - f/u with endocrine - repeat TFTs in 6-8 weeks 3- H/o Gastric cancer . on active chemo which is being on hold . 4- N/V /po intake/abd pain. resolved - No mets on MRI of brain - cont PPI - cont puree diet . 5- H/o A fib: cont toprol and Eliquis 7- HTN . now hypotensive this afternoon - cont toprol - DC norvasc - cont low dose losartan 50 mg - give IVF x 8 hours. stop at night to avoid delirium 8- Prostate enlargement on CT. not changed. f/u as out pt. dc to rehab tomorrow if BP improves Visit type - Emergency Visit Emergency Visit: Yes ED Registration Date: 10/13/19 Care time: The patient presented to the Emergency Department on the above date and was hospitalized for further evaluation of their emergent condition. - New Patient This patient is new to me today: No - Critical Care Critical Care patient: No - Medication Review Med list reviewed for High Risk Meds patients 65 and older: Yes
[2019-10-19] MEDS ORDERED: SODIUM CHLORIDE 1,000 ML IV SCH (15:15)
--- NOTE | 2019-10-19 15:41 | PN.GI ---
GI Progress Note Subjective: GI NOte: More alert today and conversant but still does not recall who I am. Eating but poorly - Objective Vital Signs: Vital Signs Temperature 97.6 F 10/19/19 14:30 Pulse Rate 71 10/19/19 14:41 Respiratory Rate 16 10/19/19 14:41 Blood Pressure 99/55 L 10/19/19 14:41 O2 Sat by Pulse Oximetry (%) 98 10/19/19 14:41 CBC,CMP WBC 6.8 K/mm3 (4.0-10.0) 10/19/19 09:25 RBC 4.03 M/mm3 (4.00-5.60) 10/19/19 09:25 Hgb 13.3 GM/dL (11.7-16.9) 10/19/19 09:25 Hct 40.1 % (35.4-49) 10/19/19 09:25 MCV 99.6 fl (80-96) H 10/19/19 09:25 MCH 33.1 pg (25.7-33.7) 10/19/19 09:25 MCHC 33.2 g/dl (32.0-35.9) 10/19/19 09:25 RDW 20.0 % (11.9-15.9) H 10/19/19 09:25 Plt Count 191 K/MM3 (134-434) 10/19/19 09:25 MPV 8.7 fl (7.5-11.1) 10/19/19 09:25 Absolute Neuts (auto) 6.0 K/mm3 (1.5-8.0) 10/13/19 13:15 Neutrophils % 77.3 % (42.8-82.8) 10/13/19 13:15 Lymphocytes % 13.2 % (8-40) D 10/13/19 13:15 Monocytes % 7.6 % (3.8-10.2) 10/13/19 13:15 Eosinophils % 0.7 % (0-4.5) 10/13/19 13:15 Basophils % 1.2 % (0-2.0) 10/13/19 13:15 Nucleated RBC % 0 % (0-0) 10/13/19 13:15 Sodium 144 mmol/L (136-145) 10/19/19 09:25 Potassium 3.7 mmol/L (3.5-5.1) 10/19/19 09:25 Chloride 109 mmol/L (98-107) H 10/19/19 09:25 Carbon Dioxide 25 mmol/L (21-32) 10/19/19 09:25 Anion Gap 9 MMOL/L (8-16) 10/19/19 09:25 BUN 10.2 mg/dL (7-18) 10/19/19 09:25 Creatinine 1.2 mg/dL (0.55-1.3) 10/19/19 09:25 Est GFR (CKD-EPI)AfAm 63.08 10/19/19 09:25 Est GFR (CKD-EPI)NonAf 54.43 10/19/19 09:25 POC Glucometer 162 UNITS (80-120) 10/19/19 11:11 Random Glucose 112 mg/dL (74-106) H 10/19/19 09:25 Calcium 8.5 mg/dL (8.5-10.1) 10/19/19 09:25 Phosphorus 3.3 mg/dL (2.5-4.9) 10/19/19 09:25 Magnesium 2.0 mg/dL (1.8-2.4) 10/19/19 09:25 Total Bilirubin 1.4 mg/dL (0.2-1) H 10/14/19 10:00 AST 34 U/L (15-37) 10/14/19 10:00 ALT 25 U/L (13-61) 10/14/19 10:00 Alkaline Phosphatase 94 U/L (45-117) 10/14/19 10:00 Ammonia < 10.00 umol/L (11-32) L 10/14/19 11:09 Creatine Kinase 58 U/L (26-308) 10/14/19 18:28 Troponin I 0.08 ng/ml (0.00-0.05) H 10/15/19 06:38 C-Reactive Protein 1.7 MG/DL (0.00-0.3) H 10/18/19 05:56 Total Protein 6.7 g/dl (6.4-8.2) 10/14/19 10:00 Albumin 2.9 g/dl (3.4-5.0) L 10/14/19 10:00 TSH 0.04 uIU/ml (0.358-3.74) L D 10/16/19 07:10 Free T4 1.81 ng/dl (0.76-1.16) H 10/16/19 07:10 Free T3 1.8 pg/ml (2.0-4.4) L 10/16/19 07:10 Constitutional: Calm ...Auscultate: Yes: Normoactive Bowel Sounds ...Palpate: Yes: Soft, Other (nontender) Labs: CBC, BMP 10/19/19 09:25 10/19/19 09:25 INR, PTT INR 1.39 (0.83-1.09) H 10/13/19 13:15 Problem List - Problems (1) Gastric cancer Code(s): C16.9 - MALIGNANT NEOPLASM OF STOMACH, UNSPECIFIED Qualifiers: Malignant neoplasm of stomach location: unspecified location Qualified Code(s): C16.9 - Malignant neoplasm of stomach, unspecified (2) Vomiting Code(s): R11.10 - VOMITING, UNSPECIFIED (3) Diabetes mellitus Code(s): E11.9 - TYPE 2 DIABETES MELLITUS WITHOUT COMPLICATIONS (4) Arteriosclerotic heart disease (ASHD) Code(s): I25.10 - ATHSCL HEART DISEASE OF [place] CORONARY ARTERY W/O ANG PCTRS (5) History of SC (myocardial infarction) Code(s): I25.2 - OLD MYOCARDIAL INFARCTION (6) Atrial fibrillation Code(s): I48.91 - UNSPECIFIED ATRIAL FIBRILLATION (7) Hypertension Code(s): I10 - ESSENTIAL (PRIMARY) HYPERTENSION (8) Hyperlipidemia Code(s): E78.5 - HYPERLIPIDEMIA, UNSPECIFIED (9) Glaucoma Code(s): H40.9 - UNSPECIFIED GLAUCOMA (10) Altered mental status Code(s): R41.82 - ALTERED MENTAL STATUS, UNSPECIFIED (11) Colon adenoma Code(s): D12.6 - BENIGN NEOPLASM OF COLON, UNSPECIFIED (12) Angiodysplasia of colon Code(s): K55.20 - ANGIODYSPLASIA OF COLON WITHOUT HEMORRHAGE (13) Diverticulosis Code(s): K57.90 - DVRTCLOS OF INTEST, PART UNSP, W/O PERF OR ABSCESS W/O BLEED
[2019-10-19] MEDS: MIRTAZAPINE 15 MG TABLET (FP) PO SCH (21:21)
[2019-10-20] MEDS: BRIMONIDINE TARTRATE 0.2% OPHTHALMIC 5 ML BOTTLE OU SCH ×3 (05:57→21:14)
[2019-10-20] MEDS: TIMOLOL 0.5% OPHTHALMIC SOL 5 ML BOTTLE OU SCH ×3 (06:01→21:21)
--- NOTE | 2019-10-20 08:06 | CON.GU ---
Consult - History of Present Illness History of Present Illness: 88 yo male with h/o BPH and bladder stone on flomax. Admitted for confusion and vomiting. On CT noted to have BPH with median lobe hypertrophy and a 9mm bladder stone - Past Medical History Cardio/Vascular: Yes: AFIB, Aortic Stenosis, HTN, Hyperlipdemia, GA (02/2000) Gastrointestinal: Yes: Cancer (Gastric cancer dxed on 04/25/19 EGD now undergoing chemorx after completing RT ), Diverticulosis, GERD, Other (right colon adenoma 04/14, descending colon angiodysplasia) Renal/: Yes: Renal Inusuff, BPH Endocrine: Yes: Diabetes Mellitus Additional Medical History: Glaucoma - Past Surgical History Past Surgical History: Yes: Appendectomy, Colonoscopy, Upper Endoscopy - Alcohol/Substance Use Hx Alcohol Use: No History of Substance Use: reports: None - Smoking History Smoking history: Never smoked Have you smoked in the past 12 months: No - Social History Usual Living Arrangement: Assisted Living ADL: Family Assistance (has declined recently) 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 History of Recent Travel: No Home Medications - Allergies Allergies/Adverse Reactions: Allergies Allergy/AdvReac Type Severity Reaction Status Date / Time aspirin Allergy Verified 08/28/19 14:42 - Home Medications Home Medications: Ambulatory Orders Atorvastatin Ca [Lipitor] 40 mg PO HS 04/24/19 Finasteride [Proscar -] 5 mg PO HS 04/24/19 Furosemide 40 mg PO DAILY 04/24/19 Glimepiride [Amaryl -] 2 mg PO DAILY 04/24/19 Metoprolol Succinate [Toprol Xl] 100 mg PO DAILY 04/24/19 Mirtazapine 15 mg PO HS 04/24/19 Potassium Chloride 10 meq PO DAILY 04/24/19 Pantoprazole Sodium [Protonix -] 40 mg PO HS #30 tablet.ec 04/25/19 Amlodipine Besylate [Norvasc -] 5 mg PO DAILY 09/12/19 Apixaban [Eliquis] 2.5 mg PO BID 09/12/19 Bimatoprost [Lumigan] 1 drop OU HS 09/12/19 Brimonidine Tartrate/Timolol [Combigan 0.2%-0.5% Eye Drops] 5 ml OP TID 09/12/19 Losartan Potassium 100 mg PO DAILY 09/12/19 Tamsulosin HCl [Flomax] 0.4 mg PO HS 09/12/19 Docusate Sodium [Colace] 200 mg PO HS PRN 09/13/19 Ferrous Sulfate 325 mg PO TID 09/13/19 Lidocaine 5% Patch [Lidoderm -] 1 patch TP DAILY PRN 09/13/19 Polyvinyl Alcohol [Artificial Tears] 1 drop OU QID 09/13/19 Sennosides [Senna] 17.2 mg PO HS PRN 09/13/19 Ondansetron HCl [Zofran] 4 mg PO Q8H #9 tablet 09/15/19 Physical Exam- Vital Signs: Vital Signs Temperature 97.8 F 10/20/19 05:51 Pulse Rate 85 10/20/19 05:51 Respiratory Rate 20 10/20/19 05:51 Blood Pressure 136/68 10/20/19 05:51 O2 Sat by Pulse Oximetry (%) 95 10/19/19 21:46 Pelvis: Yes: Bladder Non Palpable Labs: CBC, BMP 10/19/19 09:25 Imaging - Results Cat Scan: Report Reviewed Problem List - Problems (1) BPH (benign prostatic hyperplasia) Assessment/Plan: cont flomax, no intervention necessary at this time Code(s): N40.0 - BENIGN PROSTATIC HYPERPLASIA WITHOUT LOWER URINRY TRACT SYMP
[2019-10-20 08:15] LABS: BLOOD UREA NITROGEN 11.5 mg/dL (7-18); CALCIUM 8.4 mg/dL (8.5-10.1); CREATININE 1.1 mg/dL (0.55-1.3); POTASSIUM 3.8 mmol/L (3.5-5.1)
[2019-10-20] MEDS: APIXABAN 2.5 MG TABLET PO SCH ×2 (09:21→21:13)
[2019-10-20] MEDS: TAMSULOSIN HCL 0.4 MG CAP PO SCH (09:21)
[2019-10-20] MEDS: DOCUSATE SODIUM 100 MG CAPSULE (FP) PO SCH (09:21)
[2019-10-20] MEDS: METHIMAZOLE 5 MG TABLET (FP) PO SCH (09:21)
[2019-10-20] MEDS: PANTOPRAZOLE 40 MG TABLET PO SCH (09:21)
[2019-10-20] MEDS: FLUTICASONE PROP 0.05% 16 GM NASAL SPRAY NS SCH (09:22)
[2019-10-20] MEDS: POTASSIUM CHLORIDE TABS 10 MEQ TABLET.ER (FP) PO SCH (09:22)
[2019-10-20] MEDS: ARTIFICIAL TEARS (POLYVINYL ALCOHOL) OPTH DROPS OU SCH ×4 (09:22→21:14)
[2019-10-20] MEDS: LOSARTAN POTASSIUM 50 MG TABLET (FP) PO SCH (09:26)
--- NOTE | 2019-10-20 10:21 | PN ---
Progress Note (short form) - Note Progress Note: Palliative care f/up 88 y.o. Malawian speaking M PMHx HTN, HLD, DM, CKD, GERD, BPH, CAD, CVA, glaucoma,A-Fib on eliquis, Gastric cancer (oxaliplatin, leucovorin, 5-FU)- recently treated for uti with doxycycline. He is a resident of [facility] and was admitted to [facility] 10/12 with uncontrolled hypertension (136/130) and increased confusion over the past few days. The staff stated he has been having difficulty urinating, decreased appetite and has had his medications (mirtazapine, furosemide, finasteride, flomax, losartan, atorvastatin, amlodipine, iron) on hold for 19 days due to stomach pain. In the ED patient stated he has been having dizziness, nausea and is very thirsty. Patient become weaker and sicker since he started chemotherapy, has not been ambulatory and has been requiring more assistance. CTH neg CT A/P- fatty liver, enlarged prostate, cardiomegaly, coronary calcifications Echo- LVH, LVEF nl, impaired LV relaxation mod narcotics discontinued secondary to confusion ACS ruled out U/A neg for uti covid neg afebrile Alert, awake, oriented x 1-2 NAD more alert and talkative chest- CTAB P/a soft labs reviewed Patient is an elderly gentleman with multiple comorbidities along with gastric cancer on chemotherapy prognosis guarded DNR, DNI. would continue supportive care- nutritional supplements, antihypertensives and BPH meds bowel regimen remeron 15 mg po qhs cont PPI dc to SNF for STR. Problem List - Problems (1) Altered mental status Code(s): R41.82 - ALTERED MENTAL STATUS, UNSPECIFIED (2) Abdominal pain Code(s): R10.9 - UNSPECIFIED ABDOMINAL PAIN Qualifiers: Abdominal location: generalized Qualified Code(s): R10.84 - Generalized abdominal pain (3) Gastric cancer Code(s): C16.9 - MALIGNANT NEOPLASM OF STOMACH, UNSPECIFIED Qualifiers: Malignant neoplasm of stomach location: unspecified location Qualified Code(s): C16.9 - Malignant neoplasm of stomach, unspecified (4) Lactic acidosis Code(s): E87.2 - ACIDOSIS
--- NOTE | 2019-10-20 10:26 | PN.GI ---
GI Progress Note Subjective: GI NOte: More conversant today but appears depressed and withdrawn. Was able to tell me what he had for breakfast. Admits to having a poor appetite and dyspepsia. No brain metastases on MRI. - Objective Vital Signs: Vital Signs Temperature 98 F 10/20/19 10:00 Pulse Rate 76 10/20/19 10:00 Respiratory Rate 19 10/20/19 10:00 Blood Pressure 116/47 L 10/20/19 10:00 O2 Sat by Pulse Oximetry (%) 96 10/20/19 10:00 Laboratory Tests 10/14/19 10/18/19 10/20/19 10:00 05:56 06:00 BUN 11.5 Creatinine 1.1 C-Reactive Protein 1.7 H Albumin 2.9 L Constitutional: Calm, Other (appears to be depressed) ...Auscultate: Yes: Hypoactive Bowel Sounds ...Palpate: Yes: Soft, Other (nontender) Labs: CBC, BMP 10/19/19 09:25 10/20/19 06:00 INR, PTT INR 1.39 (0.83-1.09) H 10/13/19 13:15 Assessment/Plan Impression: - No residual of his gastric cancer on UGI. Vomiting resolved, ? chemorx related - Personal h/o colon adenoma - Colon diverticulosis and angiodysplasia Plan: -- Dysphagia diet -- Consider psych evaluation for depression. Perhaps a mood elevating drug would also enhance his appetite Problem List - Problems (1) Gastric cancer Code(s): C16.9 - MALIGNANT NEOPLASM OF STOMACH, UNSPECIFIED Qualifiers: Malignant neoplasm of stomach location: unspecified location Qualified Code(s): C16.9 - Malignant neoplasm of stomach, unspecified (2) Vomiting Code(s): R11.10 - VOMITING, UNSPECIFIED (3) Diabetes mellitus Code(s): E11.9 - TYPE 2 DIABETES MELLITUS WITHOUT COMPLICATIONS (4) Arteriosclerotic heart disease (ASHD) Code(s): I25.10 - ATHSCL HEART DISEASE OF [place] CORONARY ARTERY W/O ANG PCTRS (5) History of PR (myocardial infarction) Code(s): I25.2 - OLD MYOCARDIAL INFARCTION (6) Atrial fibrillation Code(s): I48.91 - UNSPECIFIED ATRIAL FIBRILLATION (7) Hypertension Code(s): I10 - ESSENTIAL (PRIMARY) HYPERTENSION (8) Hyperlipidemia Code(s): E78.5 - HYPERLIPIDEMIA, UNSPECIFIED (9) Glaucoma Code(s): H40.9 - UNSPECIFIED GLAUCOMA (10) Altered mental status Code(s): R41.82 - ALTERED MENTAL STATUS, UNSPECIFIED (11) Colon adenoma Code(s): D12.6 - BENIGN NEOPLASM OF COLON, UNSPECIFIED (12) Angiodysplasia of colon Code(s): K55.20 - ANGIODYSPLASIA OF COLON WITHOUT HEMORRHAGE (13) Diverticulosis Code(s): K57.90 - DVRTCLOS OF INTEST, PART UNSP, W/O PERF OR ABSCESS W/O BLEED
[2019-10-20] MEDS ORDERED: HALOPERIDOL LACTATE 5 MG/ML IM ONE (12:15)
[2019-10-20] MEDS: BACITRACIN 15 GM TUBE TOPICAL OINTMENT TP SCH (12:28)
--- NOTE | 2019-10-20 15:40 | PN ---
Physical Exam: SUBJECTIVE: Patient seen and examined bedside. Patient is happy, in good spirits. No distress. No events overnight. He is smiling sitting up in bed. OBJECTIVE: Vital Signs Period Temp Pulse Resp BP Sys/Davis Pulse Ox Last 24 Hr 97.4 F-98.6 F 76-91 17-20 99-136/47-92 95-96 GENERAL: The patient is awake, alert. In no acute distress. HEAD: Normal with no signs of trauma. EYES: PERRL, sclera anicteric, conjunctiva clear. NECK: Trachea midline, full range of motion, supple. LUNGS: Breath sounds equal, clear to auscultation bilaterally HEART: Irregular rhythm, normal rate ABDOMEN: soft, non tender, non distended EXTREMITIES: , warm, well-perfused, no edema. PSYCH: very upset and tired Laboratory Results - last 24 hr 10/19/19 10/19/19 10/20/19 17:07 21:19 05:55 Sodium Potassium Chloride Carbon Dioxide Anion Gap BUN Creatinine Est GFR (CKD-EPI)AfAm Est GFR (CKD-EPI)NonAf POC Glucometer 122 128 104 Random Glucose Calcium 10/20/19 06:00 Sodium 144 Potassium 3.8 Chloride 111 H Carbon Dioxide 25 Anion Gap 8 BUN 11.5 Creatinine 1.1 Est GFR (CKD-EPI)AfAm 70.08 Est GFR (CKD-EPI)NonAf 60.46 POC Glucometer Random Glucose 98 Calcium 8.4 L Active Medications Generic Name Dose Route Start Last Admin Trade Name Freq PRN Reason Stop Dose Admin Apixaban 2.5 mg 10/14/19 10:00 10/20/19 09:21 Eliquis - PO 2.5 mg BID STEVE Administration Artificial Tears 1 drop 10/14/19 10:00 10/20/19 14:47 Artificial Tears OU 1 drop QID STEVE Administration Bacitracin 1 applic 10/20/19 12:15 10/20/19 12:28 Bacitracin - TP 1 applic DAILY STEVE Administration Brimonidine Tartrate 1 drop 10/14/19 22:00 10/20/19 14:46 Alphagan 0.2% - OU 1 drop TID STEVE Administration Docusate Sodium 100 mg 10/14/19 10:00 10/20/19 09:21 Colace - PO 100 mg DAILY STEVE Administration Docusate Sodium 200 mg 10/14/19 05:12 Colace - PO HS PRN CONSTIPATION Fluticasone Propionate 1 spray 10/16/19 12:15 10/20/19 09:22 Flonase - NS 1 spray DAILY STEVE Administration Lorazepam 1 mg 10/17/19 18:30 Ativan Injection - IVPUSH 10/17/19 18:31 ONCE ONE Losartan Potassium 50 mg 10/16/19 10:00 10/20/19 09:26 Cozaar - PO 50 mg DAILY STEVE Administration Methimazole 5 mg 10/16/19 15:15 10/20/19 09:21 Tapazole - PO 5 mg DAILY STEVE Administration Metoprolol Succinate 100 mg 10/14/19 10:00 10/20/19 09:21 Toprol Xl - PO 100 mg DAILY STEVE Administration Mirtazapine 15 mg 10/17/19 12:35 10/19/19 21:21 Remeron - PO 15 mg HS STEVE Administration Pantoprazole Sodium 40 mg 10/19/19 10:00 10/20/19 09:21 Protonix - PO 40 mg DAILY STEVE Administration Potassium Chloride 20 meq 10/18/19 18:24 10/20/19 09:22 K-Dur - PO 20 meq DAILY STEVE Administration Sodium Chloride 2 spray 10/16/19 06:02 10/18/19 11:43 [place] Nasal [place] - NS 2 spray TID PRN Administration NASAL CONGESTION Tamsulosin HCl 0.4 mg 10/19/19 08:30 10/20/19 09:21 Flomax - PO 0.4 mg DAILY@0830 STEVE Administration Timolol Maleate 1 drop 10/14/19 22:00 10/20/19 14:47 Timoptic 0.5% OU 1 drop TID STEVE Administration Trimethobenzamide HCl 300 mg 10/13/19 23:40 10/16/19 06:40 Tigan - PO 300 mg QID PRN Administration NAUSEA ASSESSMENT/PLAN: 88 y.o. Swedish speaking M PMHx HTN, HLD, DM, CKD, GERD, A-Fib on eliquis, Gastric cancer (restarted chemo last week). Sent from [facility] due to hypertension (136/130), increased confusion, decreased appetite. AMS - No brain mets on MRI - Remeron HS 15 mg (home dose) tonight - patient got agitated and disoriented this afternoon. He fell getting out of bed and hit his elbow. Small lac on right elbow, xray negative for fracture, endorses no pain on UE and LE. Revaluate tomorrow. - Was given haldol. Trying to avoid restraints so patient can be discharged to [facility] tomorrow. Hypokalemia - resolved - continue oral KCL daily Gastric Cancer GI consulted (Dr. Bailon) UGI series reveals no evidence of residual tumor or obstruction. Hyperthryoid: Elevated Ft4 & Low TSH - methimazole 5 mg daily Hx AFIB - continue eliquis - continue metoprolol succinate 100 mg HTN - currently only been taking metoprolol because of nausea - BP remains elevated - staring norvasc 5 mg po daily Tropenemia - trending down Increased Qtc - avoid zofran for nausea - repeat EKG tomorrow AM because of Haldol FEN - IVF - Ensure supplement - Continue chopped diet DVT Prophylaxis - Eloquis 2.5 mg PO BID - SCD's B/L Dispo Patient going to [facility] tomorrow Please avoid restraints if possible Visit type - Emergency Visit Emergency Visit: Yes ED Registration Date: 10/13/19 Care time: The patient presented to the Emergency Department on the above date and was hospitalized for further evaluation of their emergent condition. - New Patient This patient is new to me today: No - Critical Care Critical Care patient: No - Discharge Referral Referred to [facility] Med P.C[facility] No - Medication Review Med list reviewed for High Risk Meds patients 65 and older: Yes ATTENDING PHYSICIAN STATEMENT I saw and evaluated the patient. I reviewed the resident's note and discussed the case with the resident. I agree with the resident's findings and plan as documented. SUBJECTIVE: OBJECTIVE: ASSESSMENT AND PLAN:
--- NOTE | 2019-10-20 17:10 | PN ---
Teaching Attending Note Name of Resident: Lia Horton ATTENDING PHYSICIAN STATEMENT I saw and evaluated the patient. I reviewed the resident's note and discussed the case with the resident. I agree with the resident's findings and plan as documented. SUBJECTIVE: seen at 9 am No fever or chills. no Hanks , no pain, no N/V. No SOB. no events over night OBJECTIVE: NAD,awake, alert. calm and cooperative . CV: RRR. Lungs: CTAB Abd: soft, NT, ND , NL BS Ext: No edema or erythema on upper or lower extremities ASSESSMENT AND PLAN: 88 y/o man with h/o Gastric cancer (chemo started 1 week ago), [place], Afib (on Eliquis), DM, BPH, HTN, HLD, CAD and CVA who presented with rapid decline of mental status and poor po intake 1- AMS/encephalopathy, stable. possible depression/delirium , resolving - cont remeron fro mood and appetite 2- Hyperthyroidism: confirmed on repeat labs - cont low dose methemazole . - need thyroid US as out pt, abs, and possible thyroid scan . - f/u with endocrine - repeat TFTs in 6-8 weeks 3- H/o Gastric cancer . on active chemo which is being on hold . 4- N/V /po intake/abd pain. resolved - No mets on MRI of brain - cont PPI - cont puree diet . 5- H/o A fib: cont toprol and Eliquis 7- HTN . - cont toprol and low dose of losartan ( 50 mg instead of 100 ) - off norvasc , will not resume as out pt 8- Prostate enlargement on CT. not changed. f/u as out pt. cont flomax Of note patient developed a fall this afternoon after he got out of bed alone. he was agitated and disoriented and climbing out of bed. xray of elbow was done after being evaluated by team. no head trauma . NO pain in joints or bones. one dose of haldol was given despite Qtc of 467 due to patient being at risk for self harm. and EKG to be checked in am . cancel planned dc. will reevaluate tomorrow
--- NOTE | 2019-10-20 17:16 | FALL ---
Fall Exam - Event Witnessed fall: No Location of Fall: Patient Room Fall from: Bed - Pre-Fall Mental Status: Alert, Disoriented, Uncooperative Current Medications: Current Medications Generic Name Dose Route Start Last Admin Trade Name Frecandelaria PRN Reason Stop Dose Admin Apixaban 2.5 mg 10/14/19 10:00 10/20/19 09:21 Eliquis - PO 2.5 mg BID STEVE Administration Artificial Tears 1 drop 10/14/19 10:00 10/20/19 14:47 Artificial Tears OU 1 drop QID STEVE Administration Bacitracin 1 applic 10/20/19 12:15 10/20/19 12:28 Bacitracin - TP 1 applic DAILY STEVE Administration Brimonidine Tartrate 1 drop 10/14/19 22:00 10/20/19 14:46 Alphagan 0.2% - OU 1 drop TID STEVE Administration Docusate Sodium 100 mg 10/14/19 10:00 10/20/19 09:21 Colace - PO 100 mg DAILY STEVE Administration Docusate Sodium 200 mg 10/14/19 05:12 Colace - PO HS PRN CONSTIPATION Fluticasone Propionate 1 spray 10/16/19 12:15 10/20/19 09:22 Flonase - NS 1 spray DAILY STEVE Administration Lorazepam 1 mg 10/17/19 18:30 Ativan Injection - IVPUSH 10/17/19 18:31 ONCE ONE Losartan Potassium 50 mg 10/16/19 10:00 10/20/19 09:26 Cozaar - PO 50 mg DAILY STEVE Administration Methimazole 5 mg 10/16/19 15:15 10/20/19 09:21 Tapazole - PO 5 mg DAILY STEVE Administration Metoprolol Succinate 100 mg 10/14/19 10:00 10/20/19 09:21 Toprol Xl - PO 100 mg DAILY STEVE Administration Mirtazapine 15 mg 10/17/19 12:35 10/19/19 21:21 Remeron - PO 15 mg HS STEVE Administration Pantoprazole Sodium 40 mg 10/19/19 10:00 10/20/19 09:21 Protonix - PO 40 mg DAILY STEVE Administration Potassium Chloride 20 meq 10/18/19 18:24 10/20/19 09:22 K-Dur - PO 20 meq DAILY STEVE Administration Sodium Chloride 2 spray 10/16/19 06:02 10/18/19 11:43 [place] Nasal [place] - NS 2 spray TID PRN Administration NASAL CONGESTION Tamsulosin HCl 0.4 mg 10/19/19 08:30 10/20/19 09:21 Flomax - PO 0.4 mg DAILY@0830 STEVE Administration Timolol Maleate 1 drop 10/14/19 22:00 10/20/19 14:47 Timoptic 0.5% OU 1 drop TID STEVE Administration Trimethobenzamide HCl 300 mg 10/13/19 23:40 10/16/19 06:40 Tigan - PO 300 mg QID PRN Administration NAUSEA - Post-Fall Patient Outcome: Abrasion/Bruise Treatment: Dressing Vital Signs: Vital Signs Temperature 98.1 F 10/20/19 15:15 Pulse Rate 75 10/20/19 15:15 Respiratory Rate 20 10/20/19 15:15 Blood Pressure 121/78 10/20/19 15:15 O2 Sat by Pulse Oximetry (%) 96 10/20/19 10:00 Vital Signs - 8 hr 10/20/19 10/20/19 10/20/19 10:00 11:45 13:45 Temperature 98 F 97.5 F L 98 F Pulse Rate 76 83 91 H Respiratory 19 18 20 Rate Blood Pressure 116/47 L 136/92 99/58 L O2 Sat by Pulse 96 Oximetry (%) 10/20/19 10/20/19 14:05 15:15 Temperature 98.2 F 98.1 F Pulse Rate 84 75 Respiratory 17 20 Rate Blood Pressure 111/78 121/78 O2 Sat by Pulse Oximetry (%) LOC Post-Fall: Awake, Alert, Confused, Disoriented Identify factors for HIGH RISK for Head Injury: Pt on anticoagulant
--- NOTE | 2019-10-20 18:00 | PDOC ---
Documentation entered by Tashi Mcmillan SCRIBE, acting as scribe for Samir Montalvo MD. Samir Montalvo MD: This documentation has been prepared by the joseibe, Tashi Mcmillan SCRIBE, under my direction and personally reviewed by me in its entirety. I confirm that the documentation accurately reflects all work, treatment, procedures, and medical decision making performed by me. Attending Attestation - Resident Resident Name: DraganRegian - ED Attending Attestation I have performed the following: I have examined & evaluated the patient, The case was reviewed & discussed with the resident, I agree w/resident's findings & plan, Exceptions are as noted - HPI HPI: 10/13/19 14:32 The patient is an 88 year old male with a significant past medical history of gastric cancer(on chemo), ASHD PA, Afib on Eliquis, DM, HTN, HLD, CAD, CVA who presents to the ED from [facility] (assisted living) for high blood pressure. He is a poor historian due to confusion. Per patient, his last urination was 1-3 days ago. Per assisted living, the patient has chronic weakness, decreased oral intake, has recently become more confused, and he has not been given medications for 19 days secondary to stomach pain. Allergy: aspirin - Physicial Exam PE: 10/13/19 12:21 Agree with resident exam - Medical Decision Making 11/07/19 23:08 88yo M with MMP presents to the ED with failure to thrive picture Pt with hx gastric ca Plan for broad w/u including labs, UA, CXR, CTAP, CTH, gentle fluids Anticipate admission Discharge - Discharge Information Problems reviewed: Yes Clinical Impression/Diagnosis: Altered mental status Condition: Stable Disposition: CARE HOME FACILITY - Follow up/Referral - Patient Discharge Instructions - Post Discharge Activity
[2019-10-20] MEDS: MIRTAZAPINE 15 MG TABLET (FP) PO SCH (21:13)
[2019-10-21] MEDS: BRIMONIDINE TARTRATE 0.2% OPHTHALMIC 5 ML BOTTLE OU SCH ×2 (06:00→13:58)
[2019-10-21] MEDS: TIMOLOL 0.5% OPHTHALMIC SOL 5 ML BOTTLE OU SCH ×2 (06:06→13:59)
--- NOTE | 2019-10-21 09:28 | PN ---
Progress Note (short form) - Note Progress Note: Palliative care f/up 88 y.o. Hungarian speaking M PMHx HTN, HLD, DM, CKD, GERD, BPH, CAD, CVA, glaucoma,A-Fib on eliquis, Gastric cancer (oxaliplatin, leucovorin, 5-FU)- recently treated for uti with doxycycline. He is a resident of [facility] and was admitted to [facility] 10/12 with uncontrolled hypertension (136/130) and increased confusion over the past few days. The staff stated he has been having difficulty urinating, decreased appetite and has had his medications (mirtazapine, furosemide, finasteride, flomax, losartan, atorvastatin, amlodipine, iron) on hold for 19 days due to stomach pain. In the ED patient stated he has been having dizziness, nausea and is very thirsty. Patient become weaker and sicker since he started chemotherapy, has not been ambulatory and has been requiring more assistance. CTH neg CT A/P- fatty liver, enlarged prostate, cardiomegaly, coronary calcifications Echo- LVH, LVEF nl, impaired LV relaxation mod narcotics discontinued secondary to confusion ACS ruled out U/A neg for uti covid neg afebrile Alert, awake, oriented x 1-2 mood calmer today NAD more alert and talkative chest- CTAB P/a soft Patient is an elderly gentleman with multiple comorbidities along with gastric cancer on chemotherapy prognosis guarded DNR, DNI. continue supportive care- nutritional supplements, antihypertensives and BPH meds bowel regimen remeron 15 mg po qhs cont PPI dc to SNF for STR. Problem List - Problems (1) Altered mental status Code(s): R41.82 - ALTERED MENTAL STATUS, UNSPECIFIED (2) Abdominal pain Code(s): R10.9 - UNSPECIFIED ABDOMINAL PAIN Qualifiers: Abdominal location: generalized Qualified Code(s): R10.84 - Generalized abdominal pain (3) Gastric cancer Code(s): C16.9 - MALIGNANT NEOPLASM OF STOMACH, UNSPECIFIED Qualifiers: Malignant neoplasm of stomach location: unspecified location Qualified Code(s): C16.9 - Malignant neoplasm of stomach, unspecified (4) Lactic acidosis Code(s): E87.2 - ACIDOSIS
[2019-10-21] MEDS: ARTIFICIAL TEARS (POLYVINYL ALCOHOL) OPTH DROPS OU SCH ×2 (09:37→13:59)
[2019-10-21] MEDS: BACITRACIN 15 GM TUBE TOPICAL OINTMENT TP SCH (09:37)
[2019-10-21] MEDS: LOSARTAN POTASSIUM 50 MG TABLET (FP) PO SCH (09:37)
[2019-10-21] MEDS: TAMSULOSIN HCL 0.4 MG CAP PO SCH (09:37)
[2019-10-21] MEDS: DOCUSATE SODIUM 100 MG CAPSULE (FP) PO SCH (09:37)
[2019-10-21] MEDS: POTASSIUM CHLORIDE TABS 10 MEQ TABLET.ER (FP) PO SCH (09:37)
[2019-10-21] MEDS: FLUTICASONE PROP 0.05% 16 GM NASAL SPRAY NS SCH (09:38)
[2019-10-21] MEDS: APIXABAN 2.5 MG TABLET PO SCH (09:38)
[2019-10-21] MEDS: METHIMAZOLE 5 MG TABLET (FP) PO SCH (09:38)
[2019-10-21] MEDS: PANTOPRAZOLE 40 MG TABLET PO SCH (09:38)
[2019-10-21 09:57] VITALS: TEMP 97.6
[2019-10-21] MEDS ORDERED: PT OWN MED DRAWER 7, Y5N ONE (10:33)
--- NOTE | 2019-10-21 11:05 | CON.CARD ---
Consult Consult Specialty:: cardiology Reason for Consultation:: CAD; CHF; AF; - History of Present Illness History of Present Illness: Mr. Art is an 88 yr old man (b. [facility]) with PMH of ID, CAD-->coronary stents, diastolic CHF, HTN, HLD, DM, CKD, BPH, GERD, Afib on eliquis, gastric CA on chemo, who presents from assisted living for high blood pressure. Pt appears to be confused and is a poor historian. Pt states that he has not urinated in 1- 3 days, nor had bowel movements in days. Repeatedly states that he is very thirsty. Called [facility]. States that patient was sent here for high blood pressure (136/130). In terms of chronic problems, they state that he has had decreased oral intake and increased weakness since starting chemo for gastric cancer. Upon asking about baseline mental status, they mention that he has appeared more confused over the last few days. State that most medications have been on hold for the last 19 days due to stomach pain. Continues to take metoprolol 100, protonix 40, eliquis 2.5, and K 20. K was increased from 10 3 days ago. Discontinued medications include: mirtazapine, furosemide, finasteride, flomax, losartan, atorvastatin, amlodipine, iron. Coronary angiogram 2006: proximal LAD stent still patent; new D1 stent placed. Block Sealer: Dr. Velasco - History Source History Provided By: Medical Record Limitations to Obtaining History: Poor Historian - Past Medical History Cardio/Vascular: Yes: AFIB, Aortic Stenosis, HTN, Hyperlipdemia, ID (02/2000) Gastrointestinal: Yes: Cancer (Gastric cancer dxed on 04/25/19 EGD now undergoing chemorx after completing RT ), Diverticulosis, GERD, Other (right colon adenoma 04/14, descending colon angiodysplasia) Renal/: Yes: Renal Inusuff, BPH Endocrine: Yes: Diabetes Mellitus Additional Medical History: Glaucoma - Past Surgical History Past Surgical History: Yes: Appendectomy, Colonoscopy, Upper Endoscopy - Alcohol/Substance Use Hx Alcohol Use: No History of Substance Use: reports: None - Smoking History Smoking history: Never smoked Have you smoked in the past 12 months: No - Social History Usual Living Arrangement: Assisted Living ADL: Family Assistance (has declined recently) 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 History of Recent Travel: No Home Medications - Allergies Allergies/Adverse Reactions: Allergies Allergy/AdvReac Type Severity Reaction Status Date / Time aspirin Allergy Verified 08/28/19 14:42 - Home Medications Home Medications: Ambulatory Orders Atorvastatin Ca [Lipitor] 40 mg PO HS 04/24/19 Finasteride [Proscar -] 5 mg PO HS 04/24/19 Furosemide 40 mg PO DAILY 04/24/19 Glimepiride [Amaryl -] 2 mg PO DAILY 04/24/19 Metoprolol Succinate [Toprol Xl] 100 mg PO DAILY 04/24/19 Mirtazapine 15 mg PO HS 04/24/19 Potassium Chloride 10 meq PO DAILY 04/24/19 Pantoprazole Sodium [Protonix -] 40 mg PO HS #30 tablet.ec 04/25/19 Apixaban [Eliquis] 2.5 mg PO BID 09/12/19 Bimatoprost [Lumigan] 1 drop OU HS 09/12/19 Brimonidine Tartrate/Timolol [Combigan 0.2%-0.5% Eye Drops] 5 ml OP TID 09/12/19 Tamsulosin HCl [Flomax] 0.4 mg PO HS 09/12/19 Docusate Sodium [Colace] 200 mg PO HS PRN 09/13/19 Ferrous Sulfate 325 mg PO TID 09/13/19 Lidocaine 5% Patch [Lidoderm -] 1 patch TP DAILY PRN 09/13/19 Polyvinyl Alcohol [Artificial Tears] 1 drop OU QID 09/13/19 Sennosides [Senna] 17.2 mg PO HS PRN 09/13/19 Ondansetron HCl [Zofran] 4 mg PO Q8H #9 tablet 09/15/19 Losartan Potassium [Cozaar -] 50 mg PO DAILY #30 tab 10/21/19 Methimazole [Tapazole -] 5 mg PO DAILY #30 tablet 10/21/19 Vital Signs: Vital Signs Temperature 97.6 F 10/21/19 09:00 Pulse Rate 73 10/21/19 09:00 Respiratory Rate 17 10/21/19 09:00 Blood Pressure 139/67 10/21/19 09:00 O2 Sat by Pulse Oximetry (%) 97 10/21/19 09:00 - Other Data Labs, Other Data: CBC, BMP 10/19/19 09:25 10/20/19 06:00 INR, PTT INR 1.39 (0.83-1.09) H 10/13/19 13:15 Assessment/Plan CAD/s/p ID/s/p coronary stents (LAD; D1) mild TNI elevation Diastolic CHF AF Moderate aortic stenosis () Gastric CA; s/p chemotherapy (preserved LVEF). Hyperthyroidism GERD BPH obesity glaucoma confusion; ? dementia ?sensitivity to ASA Plan: On metoprolol ER for AF HR control, CAD On apixaban for anticoagulation F/u BUN/Cr, electrolytes, daily weight, Is and Os. EKG: AF; ?old AWMI vs lead placement issue (normal LVEF on ECHO); f/u repeat EKG. Multiple contributors to demand ischemia, including CHF, AF with periods of RVR, thyroid dysfunction.
--- NOTE | 2019-10-21 13:16 | DS ---
Physical Exam: SUBJECTIVE: Patient seen and examined bedside. Patient much more comfortably this morning, in no acute distress. More alert and oriented to place. OBJECTIVE: Vital Signs Period Temp Pulse Resp BP Sys/Davis Pulse Ox Last 24 Hr 97.4 F-98.2 F 72-97 16-20 99-141/58-91 96-97 PHYSICAL EXAM GENERAL: The patient is awake, alert, oriented to person and place. HEAD: Normal with no signs of trauma. EYES: PERRL, extraocular movements intact, sclera anicteric, conjunctiva clear. LUNGS: Breath sounds equal, clear to auscultation bilaterally, no wheezes, no crackles, no accessory muscle use. HEART: irregularly irregular ABDOMEN: Soft, nontender, nondistended, normoactive bowel sounds EXTREMITIES: pulses, warm, well-perfused, no edema. NEUROLOGICAL: Cranial nerves II through XII grossly intact. Normal speech, gait not observed. SKIN: Warm, dry, normal turgor, small lesion on right elbow LABS Laboratory Results - last 24 hr 10/20/19 10/20/19 10/21/19 16:39 21:19 05:38 POC Glucometer 122 126 102 10/21/19 11:27 POC Glucometer 118 IMAGING BRAIN MRI: Coronal, sagittal and axial T1, T2, FLAIR, diffusion-weighted were obtained followed with fat-sat coronal, sagittal and axial T1-weighted post administration of ProHance IV. The midline structures unremarkable On the T2 and FLAIR weighted images there are ischemic changes in the white matter of both cerebral hemispheres sequela most probably to long-standing hypertension or small vessel atherosclerosis. The diffusion weighted images unremarkable with no evidence of acute infarction. Following administration of ProHance IV there is no evidence of enhancing intra or extra axial neoplasm. No suspicious meningeal enhancement. The cerebellopontine angles unremarkable. Impression: Extensive ischemic changes in the white matter of both cerebral hemisphere sequela most probably to long-standing hypertension or small vessel atherosclerosis. No evidence acute infarction. No evidence of intracerebral hemorrhage, subdural fluid collection or hydrocephalus. GI Series: Under fluoroscopic control, an esophagram and upper GI series was performed. The study is limited due to the patient's poor mobility. After administering a barium meal, there was rapid visualization of the esophagus. There is no evidence of intrinsic or extrinsic esophageal mass lesions or strictures. The stomach is distensible and shows adequate peristalsis with no evidence of gastric masses or ulcer cavities. There is no evidence of outlet obstruction. The duodenal bulb and sweep demonstrated no evidence of acute or chronic peptic ulcer disease. The proximal loops of jejunum visualized and showed no significant abnormalities. IMPRESSION: Limited study with no evidence of gastric masses or outlet obstruction. Please see above discussion. HOSPITAL COURSE: Patient is 88 yo male with PMHx HTN, HLD, DM, CKD, GERD, A-Fib on eliquis, & Gastric cancer (recently restarted treatment with outside oncologist). Presented to the ED from [facility] due to hypertension (136/130), increased confusion, & decreased appetite. Patient was admitted for failure to thrive, hypertensive urgency, and AMS secondary to metabolic encephalopathy, vs brain mets, vs worsening dementia with delirium. Most of his medication were stopped at his home due to his decreased PO intake. He was given IV fluids and his electrolytes were replaced as needed. He was worked up by GI, there was no evidence of masses or obstruction to explain his problems eating. He was evaluated by speech and swallow and put on a chopped diet and his oral intake started to improve. However, throughout his stay his mental status waxed and waned. He was restarted on his regular dose of Remeron which had been stopped at his home, there was some improvement. However, he would still get disoriented and extremely agitated at night. MRI was done to r/o metastatic cancer in his brain contributing to worsening mental status. He was found to have hyperthyroidism while in the hospital. He was started on methimazole and advised to follow up with lead investigator after discharge. The patient stabilized and discharged to rehab to regain his strength. Date of Admission:10/13/19 Date of Discharge: 10/21/19 Minutes to complete discharge: 37 Discharge Summary Problems reviewed: Yes Reason For Visit: AMS Current Active Problems Altered mental status (Acute) Angiodysplasia of colon (Acute) Arteriosclerotic heart disease (ASHD) (Acute) Atrial fibrillation (Acute) BPH (benign prostatic hyperplasia) (Acute) Colon adenoma (Acute) Diabetes mellitus (Acute) Diverticulosis (Acute) Glaucoma (Acute) History of SD (myocardial infarction) (Acute) Hyperlipidemia (Acute) Hypertension (Acute) Vomiting (Acute) Condition: Stable - Instructions Diet, Activity, Other Instructions: Hospital Visit You came to the hospital for confusion and decreased appetite. You had blood tests showing your thyroid levels were low and you were started on medication. You are being discharged to rehab to help your muscles get stronger. Your potassium was low and has since improved. This will need to be monitored. You were found to have a renal stone that does not need treatment at this time. Medications Please take methimazole 5 mg daily. Please take Remeron (mirtazapine) 15mg daily. We changed your Losartan from 100 mg to 50 mg daily. Please take 50 mg daily of Losartan. Please stop taking your Norvasc (amlodipine) due to low blood pressure. Please continue your additional medications as prescribed. Follow up Please follow up with your primary care physician, Dr. Reyes, in 1 week to monitor your electrolytes. Please follow up with Dr. Gutiérrez, oncologist, regarding your chemotherapy regimen in the next 2 weeks. Please follow up with an lead investigator, Dr. Moon, to monitor your thyroid within 6-8 weeks. If you are having urinary symptoms, you may follow up with Dr. Richards, urology. If you have any more stomach problems, you may follow up with Dr. Bailon, gastroenterology. Other instructions Return to the emergency room or call 911 if you develop chest pain, difficulty breathing, bleeding, vomiting, dizziness, loss of consciousness, or fever above 101. Facility instructions Please give patient a chopped dysphagia diet. Referrals: Jeremias Richards MD [Staff Physician] - Sergio Bailon MD [Staff Physician] - Tray Moon MD [Staff Physician] - 12/01/19 (6-8 weeks) Ayah Escamilla MD [Primary Care Provider] - 1 Week Michel Gutiérrez MD [Non Staff, Medical] - 2 Weeks Disposition: LONGTERM FACILITY - Home Medications Comprehensive Discharge Medication List: Ambulatory Orders Atorvastatin Ca [Lipitor] 40 mg PO HS 04/24/19 Finasteride [Proscar -] 5 mg PO HS 04/24/19 Furosemide 40 mg PO DAILY 04/24/19 Glimepiride [Amaryl -] 2 mg PO DAILY 04/24/19 Metoprolol Succinate [Toprol Xl] 100 mg PO DAILY 04/24/19 Mirtazapine 15 mg PO HS 04/24/19 Potassium Chloride 10 meq PO DAILY 04/24/19 Pantoprazole Sodium [Protonix -] 40 mg PO HS #30 tablet.ec 04/25/19 Apixaban [Eliquis] 2.5 mg PO BID 09/12/19 Bimatoprost [Lumigan] 1 drop OU HS 09/12/19 Brimonidine Tartrate/Timolol [Combigan 0.2%-0.5% Eye Drops] 5 ml OP TID 09/12/19 Tamsulosin HCl [Flomax] 0.4 mg PO HS 09/12/19 Docusate Sodium [Colace] 200 mg PO HS PRN 09/13/19 Ferrous Sulfate 325 mg PO TID 09/13/19 Lidocaine 5% Patch [Lidoderm -] 1 patch TP DAILY PRN 09/13/19 Polyvinyl Alcohol [Artificial Tears] 1 drop OU QID 09/13/19 Sennosides [Senna] 17.2 mg PO HS PRN 09/13/19 Ondansetron HCl [Zofran] 4 mg PO Q8H #9 tablet 09/15/19 Losartan Potassium [Cozaar -] 50 mg PO DAILY #30 tab 10/21/19 Methimazole [Tapazole -] 5 mg PO DAILY #30 tablet 10/21/19 This patient is new to me today: No Emergency Visit: Yes ED Registration Date: 10/13/19 Care time: The patient presented to the Emergency Department on the above date and was hospitalized for further evaluation of their emergent condition. Critical Care patient: No - Discharge Referral Referred to [facility] Med P.C.: No ATTENDING PHYSICIAN STATEMENT I saw and evaluated the patient. I reviewed the resident's note and discussed the case with the resident. I agree with the resident's findings and plan as documented. SUBJECTIVE: OBJECTIVE: ASSESSMENT AND PLAN:
[2019-10-21 13:58] VITALS: BP 106/70; PULSE 69
--- NOTE | 2019-10-21 14:21 | PN ---
Teaching Attending Note Name of Resident: Lia Horton ATTENDING PHYSICIAN STATEMENT I saw and evaluated the patient. I reviewed the resident's note and discussed the case with the resident. I agree with the resident's findings and plan as documented. SUBJECTIVE: Patient is back to his baseline. OBJECTIVE: Vital Signs Temperature 97.6 F 10/21/19 13:00 Pulse Rate 69 10/21/19 13:00 Respiratory Rate 16 10/21/19 13:00 Blood Pressure 106/70 10/21/19 13:00 O2 Sat by Pulse Oximetry (%) 97 10/21/19 13:00 PE: per resident's note CBCD WBC 6.8 K/mm3 (4.0-10.0) 10/19/19 09:25 RBC 4.03 M/mm3 (4.00-5.60) 10/19/19 09:25 Hgb 13.3 GM/dL (11.7-16.9) 10/19/19 09:25 Hct 40.1 % (35.4-49) 10/19/19 09:25 MCV 99.6 fl (80-96) H 10/19/19 09:25 MCHC 33.2 g/dl (32.0-35.9) 10/19/19 09:25 RDW 20.0 % (11.9-15.9) H 10/19/19 09:25 Plt Count 191 K/MM3 (134-434) 10/19/19 09:25 MPV 8.7 fl (7.5-11.1) 10/19/19 09:25 CMP Sodium 144 mmol/L (136-145) 10/20/19 06:00 Potassium 3.8 mmol/L (3.5-5.1) 10/20/19 06:00 Chloride 111 mmol/L (98-107) H 10/20/19 06:00 Carbon Dioxide 25 mmol/L (21-32) 10/20/19 06:00 Anion Gap 8 MMOL/L (8-16) 10/20/19 06:00 BUN 11.5 mg/dL (7-18) 10/20/19 06:00 Creatinine 1.1 mg/dL (0.55-1.3) 10/20/19 06:00 Random Glucose 98 mg/dL (74-106) 10/20/19 06:00 Calcium 8.4 mg/dL (8.5-10.1) L 10/20/19 06:00 Total Bilirubin 1.4 mg/dL (0.2-1) H 10/14/19 10:00 AST 34 U/L (15-37) 10/14/19 10:00 ALT 25 U/L (13-61) 10/14/19 10:00 Alkaline Phosphatase 94 U/L (45-117) 10/14/19 10:00 Total Protein 6.7 g/dl (6.4-8.2) 10/14/19 10:00 Albumin 2.9 g/dl (3.4-5.0) L 10/14/19 10:00 CARDIAC ENZYMES Creatine Kinase 58 U/L (26-308) 10/14/19 18:28 Troponin I 0.08 ng/ml (0.00-0.05) H 10/15/19 06:38 Current Medications Generic Name Dose Route Start Last Admin Trade Name Freq PRN Reason Stop Dose Admin Apixaban 2.5 mg 10/14/19 10:00 10/21/19 09:38 Eliquis - PO 2.5 mg BID STEVE Administration Artificial Tears 1 drop 10/14/19 10:00 10/21/19 13:59 Artificial Tears OU 1 drop QID STEVE Administration Bacitracin 1 applic 10/20/19 12:15 10/21/19 09:37 Bacitracin - TP 1 applic DAILY STEVE Administration Brimonidine Tartrate 1 drop 10/14/19 22:00 10/21/19 13:58 Alphagan 0.2% - OU 1 drop TID STEVE Administration Docusate Sodium 100 mg 10/14/19 10:00 10/21/19 09:37 Colace - PO 100 mg DAILY STEVE Administration Docusate Sodium 200 mg 10/14/19 05:12 Colace - PO HS PRN CONSTIPATION Fluticasone Propionate 1 spray 10/16/19 12:15 10/21/19 09:38 Flonase - NS 1 spray DAILY STEVE Administration Lorazepam 1 mg 10/17/19 18:30 Ativan Injection - IVPUSH 10/17/19 18:31 ONCE ONE Losartan Potassium 50 mg 10/16/19 10:00 10/21/19 09:37 Cozaar - PO 50 mg DAILY STEVE Administration Methimazole 5 mg 10/16/19 15:15 10/21/19 09:38 Tapazole - PO 5 mg DAILY STEVE Administration Metoprolol Succinate 100 mg 10/14/19 10:00 10/21/19 09:38 Toprol Xl - PO 100 mg DAILY STEVE Administration Mirtazapine 15 mg 10/17/19 12:35 10/20/19 21:13 Remeron - PO 15 mg HS STEVE Administration Pantoprazole Sodium 40 mg 10/19/19 10:00 10/21/19 09:38 Protonix - PO 40 mg DAILY STEVE Administration Potassium Chloride 20 meq 10/18/19 18:24 10/21/19 09:37 K-Dur - PO 20 meq DAILY STEVE Administration Sodium Chloride 2 spray 10/16/19 06:02 10/18/19 11:43 [place] Nasal [place] - NS 2 spray TID PRN Administration NASAL CONGESTION Tamsulosin HCl 0.4 mg 10/19/19 08:30 10/21/19 09:37 Flomax - PO 0.4 mg DAILY@0830 STEVE Administration Timolol Maleate 1 drop 10/14/19 22:00 10/21/19 13:59 Timoptic 0.5% OU 1 drop TID STEVE Administration Trimethobenzamide HCl 300 mg 10/13/19 23:40 10/16/19 06:40 Tigan - PO 300 mg QID PRN Administration NAUSEA Home Medications Medication Instructions Recorded Atorvastatin Ca [Lipitor] 40 mg PO HS 04/24/19 Finasteride [Proscar -] 5 mg PO HS 04/24/19 Furosemide 40 mg PO DAILY 04/24/19 Glimepiride [Amaryl -] 2 mg PO DAILY 04/24/19 Metoprolol Succinate [Toprol Xl] 100 mg PO DAILY 04/24/19 Mirtazapine 15 mg PO HS 04/24/19 Potassium Chloride 10 meq PO DAILY 04/24/19 Pantoprazole Sodium [Protonix -] 40 mg PO HS #30 tablet.ec 04/25/19 Apixaban [Eliquis] 2.5 mg PO BID 09/12/19 Bimatoprost [Lumigan] 1 drop OU HS 09/12/19 Brimonidine Tartrate/Timolol 5 ml OP TID 09/12/19 [Combigan 0.2%-0.5% Eye Drops] Tamsulosin HCl [Flomax] 0.4 mg PO HS 09/12/19 Docusate Sodium [Colace] 200 mg PO HS PRN 09/13/19 Ferrous Sulfate 325 mg PO TID 09/13/19 Lidocaine 5% Patch [Lidoderm -] 1 patch TP DAILY PRN 09/13/19 Polyvinyl Alcohol [Artificial 1 drop OU QID 09/13/19 Tears] Sennosides [Senna] 17.2 mg PO HS PRN 09/13/19 Ondansetron HCl [Zofran] 4 mg PO Q8H #9 tablet 09/15/19 Losartan Potassium [Cozaar -] 50 mg PO DAILY #30 tab 10/21/19 Methimazole [Tapazole -] 5 mg PO DAILY #30 tablet 10/21/19 Microbiology 10/16/19 07:10 Blood - Peripheral Venous Blood Culture - Final NO GROWTH AFTER 5 DAYS INCUBATION 10/16/19 07:10 Blood - Peripheral Venous Blood Culture - Final NO GROWTH AFTER 5 DAYS INCUBATION 10/13/19 18:47 Urine - Urine Clean Catch Urine Culture - Final Normal Urogenital Lary ASSESSMENT AND PLAN: This patient is a 88yom with Pmhx of Gastric cancer (s/p chemo 1 week ago), [place], Afib (on Eliquis), DM, BPH, HTN, HLD, CAD and CVA who presented with rapid decline of mental status and poor oral intake. # AMS/encephalopathy, stable. resolved, back to his baseline, cont remeron for mood and appetite # Hyperthyroidism: confirmed on repeat labs, continue low dose methemazole . need thyroid US as out pt, abs, and possible thyroid scan . F/u with fagoting machine operator within 1-2 weeks, repeat TFTs in 6-8 weeks #Hx of Gastric cancer . on active chemo which is being on hold , f/w hem/onc. # Poor oral intake improved on Puree diet . # abdominal pain. resolved ; No mets on MRI of brain , cont PPI #Hx of A fib: cont toprol and Eliquis # HTN continue toprol and low dose of losartan ( 50 mg instead of 100 ) , dc norvasc , will not resume as out pt # Prostate enlargement on CT. not changed. f/u as out pt. cont flomax dc patient to rehab
== END 2019-10-21 16:08 | DRG 884 ==
LOC: JER 11:44 → JERBED 19:21 → J4W 10-14 10:18
PROVIDERS: ADMIT Internal Medicine; ATTEND Internal Medicine
DX: F03.91 Unspecified dementia, unspecified severity, with behavioral disturbance (principal); G93.41 Metabolic encephalopathy; C16.9 Malignant neoplasm of stomach, unspecified; I50.32 Chronic diastolic (congestive) heart failure; I13.0 Hypertensive heart and chronic kidney disease with heart failure and stage 1 through stage 4 chronic kidney disease, or unspecified chronic kidney disease; E87.2 Acidosis; I16.0 Hypertensive urgency; N18.9 Chronic kidney disease, unspecified; I48.91 Unspecified atrial fibrillation; E11.9 Type 2 diabetes mellitus without complications; I25.10 Atherosclerotic heart disease of native coronary artery without angina pectoris; R62.7 Adult failure to thrive; T45.1X5A Adverse effect of antineoplastic and immunosuppressive drugs, initial encounter; N40.0 Benign prostatic hyperplasia without lower urinary tract symptoms; H40.9 Unspecified glaucoma; E78.5 Hyperlipidemia, unspecified; Z95.5 Presence of coronary angioplasty implant and graft; E66.9 Obesity, unspecified; Z68.33 Body mass index [BMI] 33.0-33.9, adult; I35.0 Nonrheumatic aortic (valve) stenosis; K76.0 Fatty (change of) liver, not elsewhere classified; E05.90 Thyrotoxicosis, unspecified without thyrotoxic crisis or storm; R33.9 Retention of urine, unspecified; E87.6 Hypokalemia; K21.9 Gastro-esophageal reflux disease without esophagitis
CPT/HCPCS: 36415; 70450-TC; 70552-TC; 71045-TC-FY; 73070-TC-RT-FY; 74177-TC; 74220-TC-FY; 74240-TC-FY; 80048; 80053; 81003; 82140; 82550; 82962; 83735; 84100; 84439; 84443; 84481; 84484; 85025; 85027; 85610; 85730; 86140; 87040; 87086; 90670; 93005; 93010; 93306-TC; 97116-GP; 97162-GP; 99285-25; A9579; Q9967; U0003